=== PATIENT | male | born 1985 | race Caucasian/White ===

== ENCOUNTER 2019-01-20 18:42 | Inpatient (IN) | payer MEDICARE, MEDICAID ==
[~2019-01-20] VITALS: Ht 180.3 cm; Wt 94.0 kg
[~2019-01-20 18:42] MED LIST: CLOZ100 PO; QUET200T PO
[2019-01-20] MEDS ORDERED: ZOLPIDEM TARTRATE 10 MG TABLET PO PRN (19:00)
[2019-01-20 20:17] VITALS: BP 131/72
[2019-01-20] MEDS: HALOPERIDOL 5 MG TABLET PO PRN (21:11)
[2019-01-20] MEDS: LORazepam 2 MG TABLET PO PRN (21:11)
[2019-01-20] MEDS ORDERED: ONDANSETRON HCL 4 MG TABLET PO PRN (23:15)
[2019-01-20] MEDS ORDERED: CloNIDine HCL 0.1 MG TABLET PO PRN (23:15)
[2019-01-20] MEDS ORDERED: DOCUSATE SODIUM 100 MG CAPSULE PO PRN (23:15)
[2019-01-20] MEDS ORDERED: NICOTINE 14 MG/24 HOUR PATCH TD PRN (23:15)
[2019-01-20] MEDS ORDERED: MAG HYDROX/AL HYDROX/SIMETH ES 30 ML SUSPENSION UDCUP PO PRN (23:15)
[2019-01-20] MEDS ORDERED: GuaiFENesin/D-METHORPHAN [SUGAR-FREE] 200-20MG/10 ML SYRUP UDCUP PO PRN (23:15)
[2019-01-20] MEDS ORDERED: PETROLATUM,WHITE 28 GM JELLY TP PRN (23:15)
[2019-01-20] MEDS ORDERED: ALBUTEROL SULFATE HFA 90 MCG/PUFF 8 GM INHALER IH PRN (23:15)
[2019-01-20] MEDS ORDERED: IBUPROFEN 400 MG TABLET PO PRN (23:15)
[2019-01-20] MEDS ORDERED: MAGNESIUM HYDROXIDE SUSPENSION 30 ML UDCUP PO PRN (23:15)
[2019-01-20] MEDS ORDERED: LOPERAMIDE HCL 2 MG CAPSULE PO PRN (23:15)
[2019-01-21 04:14] VITALS: BP 109/62
[2019-01-21 07:58] LABS: BASOPHILS % (AUTO) 0.5 % (0.0-2.0); EOSINOPHILS % (AUTO) 2.3 % (1.0-6.0); HEMATOCRIT 34.5 % (41-53); HEMOGLOBIN 11.9 g/dL (13.5-17.5); LYMPHOCYTES # (AUTO) 2.4 K/uL (1.0-4.8); LYMPHOCYTES % (AUTO) 37.5 % (22.0-44.0); MEAN CORPUSCULAR HEMOGLOBIN 29.1 pg (26.0-34.0); MEAN CORPUSCULAR HGB CONC 34.6 G/dL (31.0-37.0); MEAN CORPUSCULAR VOLUME 84 fL (80-100); MONOCYTES # (AUTO) 0.5 K/uL (0.1-1.0); MONOCYTES % (AUTO) 7.7 % (2.0-9.0); NEUTROPHILS # (AUTO) 3.3 K/uL (1.8-7.7); PLATELET COUNT (AUTO) 269 K/uL (150-450); RED CELL DISTRIBUTION WIDTH 14.2 % (11.5-14.5)
[2019-01-21 08:05] VITALS: BP 105/61
[2019-01-21 08:41] LABS: ALANINE AMINOTRANSFERASE 129 U/L (12-78); ALBUMIN 3.1 g/dL (3.4-5.0); ALKALINE PHOSPHATASE 50 U/L (46-116); ANION GAP 7 mmol/L (8-16); ASPARTATE AMINOTRANSFERASE 287 U/L (15-37); BILIRUBIN,TOTAL 1.1 mg/dL (0.1-1.0); CALCIUM, TOTAL 8.8 mg/dL (8.8-10.5); CARBON DIOXIDE 27 mmol/L (22-29); CHLORIDE 106 mmol/L (98-107); CHOL/HDL RATIO 2.2 (4.2-7.3); CHOLESTEROL 127 mg/dL (131-200); FREE T4 (FREE THYROXINE) 0.92 ng/dL (0.76-1.46); GLOMERULAR FILTR. RATE CALC > 60 mL/min (>60); GLUCOSE,RANDOM 86 mg/dL (70-110); HDL CHOLESTEROL 58 mg/dL (40-60); LDL CHOL (CALC.) 60 mg/dL (0-130); POTASSIUM 3.8 mmol/L (3.5-5.1); SODIUM SERUM 140 mmol/L (136-145); THYROID STIMULATING HORMONE 2.84 uIU/mL (0.36-3.74); TOTAL PROTEIN, SERUM 5.9 g/dL (6.4-8.2); TRIGLYCERIDES 45 mg/dL (15-150); UREA NITROGEN, BLOOD 10 mg/dL (7-18)
[2019-01-21] MEDS: BACITRACIN 28.4 GM OINTMENT TP SCH ×2 (09:24→16:29)
[2019-01-21 16:17] VITALS: BP 107/79
[2019-01-21] MEDS: LORazepam 2 MG TABLET PO PRN (16:50)
[2019-01-21] MEDS: QUEtiapine FUMARATE 200 MG TABLET PO SCH (20:28)
[2019-01-22 06:28] VITALS: BP 110/66
[2019-01-22] MEDS: BACITRACIN 28.4 GM OINTMENT TP SCH ×2 (09:45→16:33)
[2019-01-22] MEDS: LORazepam 2 MG TABLET PO PRN (16:03)
[2019-01-22 16:19] VITALS: BP 119/65
[2019-01-22] MEDS: QUEtiapine FUMARATE 200 MG TABLET PO SCH (20:36)
[2019-01-23 00:15] VITALS: BP 98/55
[2019-01-23] MEDS: FERROUS SULFATE 325 MG EC TABLET PO SCH ×2 (06:37→16:38)
[2019-01-23 08:37] VITALS: BP 110/63
[2019-01-23] MEDS: BACITRACIN 28.4 GM OINTMENT TP SCH ×2 (09:55→16:38)
[2019-01-23] MEDS: LORazepam 2 MG TABLET PO PRN (14:23)
[2019-01-23] MEDS: HALOPERIDOL 5 MG TABLET PO PRN (14:23)
[2019-01-23 16:48] VITALS: BP 109/58
[2019-01-23] MEDS: QUEtiapine FUMARATE 200 MG TABLET PO SCH (20:55)
[2019-01-24 02:02] VITALS: BP 104/66
[2019-01-24] MEDS: FERROUS SULFATE 325 MG EC TABLET PO SCH ×2 (07:01→16:49)
[2019-01-24 08:39] VITALS: BP 105/62
[2019-01-24] MEDS: BACITRACIN 28.4 GM OINTMENT TP SCH ×2 (09:24→16:49)
[2019-01-24 09:28] LABS: % IRON SATURATION 15.1 % (30-44)
[2019-01-24] MEDS: LORazepam 2 MG TABLET PO PRN ×2 (13:40→19:02)
[2019-01-24 16:06] VITALS: BP 100/67
[2019-01-24 19:02] VITALS: BP 108/65
[2019-01-24] MEDS: QUEtiapine FUMARATE 200 MG TABLET PO SCH (20:39)
[2019-01-25 00:41] VITALS: BP 101/61
[2019-01-25] MEDS: FERROUS SULFATE 325 MG EC TABLET PO SCH ×2 (06:42→16:55)
[2019-01-25 08:22] LABS: ALANINE AMINOTRANSFERASE 75 U/L (12-78); ALBUMIN 3.6 g/dL (3.4-5.0); ALKALINE PHOSPHATASE 55 U/L (46-116); ANION GAP 9 mmol/L (8-16); ASPARTATE AMINOTRANSFERASE 31 U/L (15-37); BILIRUBIN,TOTAL 0.9 mg/dL (0.1-1.0); CALCIUM, TOTAL 9.2 mg/dL (8.8-10.5); CARBON DIOXIDE 27 mmol/L (22-29); CHLORIDE 103 mmol/L (98-107); CREATININE 0.83 mg/dL (0.60-1.30); GLOMERULAR FILTR. RATE CALC > 60 mL/min (>60); GLUCOSE,RANDOM 75 mg/dL (70-110); POTASSIUM 4.7 mmol/L (3.5-5.1); SODIUM SERUM 139 mmol/L (136-145); TOTAL PROTEIN, SERUM 6.5 g/dL (6.4-8.2); UREA NITROGEN, BLOOD 24 mg/dL (7-18)
[2019-01-25 09:00] VITALS: BP 111/61
[2019-01-25] MEDS: BACITRACIN 28.4 GM OINTMENT TP SCH ×2 (09:26→16:55)
[2019-01-25] MEDS: LORazepam 2 MG TABLET PO PRN (15:53)
[2019-01-25 16:01] VITALS: BP 116/68
[2019-01-25] MEDS: ACETAMINOPHEN 325 MG TABLET PO PRN (16:03)
[2019-01-25] MEDS: QUEtiapine FUMARATE 200 MG TABLET PO SCH (20:30)
[2019-01-26] MEDS: FERROUS SULFATE 325 MG EC TABLET PO SCH ×2 (06:56→16:48)
[2019-01-26 08:23] VITALS: BP 101/73
[2019-01-26] MEDS: BACITRACIN 28.4 GM OINTMENT TP SCH ×2 (08:34→16:36)
[2019-01-26] MEDS: LORazepam 2 MG TABLET PO PRN (12:00)
[2019-01-26 16:14] VITALS: BP 106/62
[2019-01-26] MEDS: QUEtiapine FUMARATE 200 MG TABLET PO SCH (20:34)
[2019-01-27 06:26] VITALS: BP 114/68
[2019-01-27] MEDS: FERROUS SULFATE 325 MG EC TABLET PO SCH ×3 (06:29→16:32)
[2019-01-27 08:23] VITALS: BP 94/59
[2019-01-27] MEDS: BACITRACIN 28.4 GM OINTMENT TP SCH ×2 (08:36→16:34)
[2019-01-27] MEDS: LORazepam 2 MG TABLET PO PRN ×2 (12:06→18:12)
[2019-01-27 13:56] VITALS: BP 109/59
[2019-01-27 16:09] VITALS: BP 115/63
[2019-01-27] MEDS: HALOPERIDOL 5 MG TABLET PO PRN (16:32)
[2019-01-27] MEDS: QUEtiapine FUMARATE 200 MG TABLET PO SCH (20:05)
[2019-01-28 05:38] VITALS: BP 100/60
[2019-01-28] MEDS: FERROUS SULFATE 325 MG EC TABLET PO SCH ×3 (06:05→16:36)
[2019-01-28 08:24] VITALS: BP 100/60
[2019-01-28] MEDS: BACITRACIN 28.4 GM OINTMENT TP SCH ×2 (09:37→16:36)
[2019-01-28] MEDS: LORazepam 2 MG TABLET PO PRN ×2 (10:14→17:29)
[2019-01-28 17:22] VITALS: BP 107/65
[2019-01-28] MEDS: QUEtiapine FUMARATE 200 MG TABLET PO SCH (20:37)
[2019-01-29 00:54] VITALS: BP 103/60
[2019-01-29] MEDS: FERROUS SULFATE 325 MG EC TABLET PO SCH ×3 (06:49→17:09)
[2019-01-29] MEDS: BACITRACIN 28.4 GM OINTMENT TP SCH ×2 (09:02→17:10)
[2019-01-29] MEDS: LORazepam 2 MG TABLET PO PRN ×2 (12:12→18:11)
[2019-01-29] MEDS: HALOPERIDOL 5 MG TABLET PO PRN (17:09)
[2019-01-29 18:00] VITALS: BP 107/63
[2019-01-29 19:37] VITALS: BP 102/65
[2019-01-29] MEDS: ACETAMINOPHEN 325 MG TABLET PO PRN (19:37)
[2019-01-29] MEDS: QUEtiapine FUMARATE 200 MG TABLET PO SCH (20:36)
[2019-01-30] VITALS: BP 105/62
[2019-01-30] MEDS: FERROUS SULFATE 325 MG EC TABLET PO SCH ×2 (07:05→12:18)
[2019-01-30 08:12] VITALS: BP 94/53
[2019-01-30] MEDS: BACITRACIN 28.4 GM OINTMENT TP SCH (08:37)
[2019-01-30] MEDS ORDERED: FERR-89 PO (08:43)
== END 2019-01-30 11:50 | disposition home or self-care (01) | DRG 885 ==
LOC: B2X 18:58
PROVIDERS: ADMIT Psychiatry & Neurology Child & Adolescent Psychiatry; ATTEND Psychiatry & Neurology Child & Adolescent Psychiatry
DX: F25.0 Schizoaffective disorder, bipolar type (principal); K76.0 Fatty (change of) liver, not elsewhere classified; F10.10 Alcohol abuse, uncomplicated; D64.9 Anemia, unspecified; B18.2 Chronic viral hepatitis C; F99 Mental disorder, not otherwise specified; Z59.0 Homelessness; Z81.8 Family history of other mental and behavioral disorders; Z79.899 Other long term (current) drug therapy; Z91.14 Patient's other noncompliance with medication regimen; Z91.5 Personal history of self-harm
CPT/HCPCS: 76700; 80074; 82728; 83036; 83540; 83550; 84439; 84443; 86592; 90686

== ENCOUNTER 2019-06-06 16:24 | Inpatient (IN) | payer MEDICARE, MEDICAID ==
[~2019-06-06] VITALS: Ht 180.3 cm; Wt 91.4 kg
[~2019-06-06 16:24] MED LIST changes: -CLOZ100 PO; +FERR-89 PO
[2019-06-06] MEDS ORDERED: QUET200T PO (16:32)
[2019-06-06 18:01] VITALS: BP 119/71
[2019-06-06] MEDS ORDERED: IBUPROFEN 400 MG TABLET PO PRN (18:15)
[2019-06-06] MEDS ORDERED: MAG HYDROX/AL HYDROX/SIMETH ES 30 ML SUSPENSION UDCUP PO PRN (18:15)
[2019-06-06] MEDS ORDERED: GuaiFENesin/D-METHORPHAN [SUGAR-FREE] 200-20MG/10 ML SYRUP UDCUP PO PRN (18:15)
[2019-06-06] MEDS ORDERED: LOPERAMIDE HCL 2 MG CAPSULE PO PRN (18:15)
[2019-06-06] MEDS ORDERED: NICOTINE 14 MG/24 HOUR PATCH TD PRN (18:15)
[2019-06-06] MEDS ORDERED: MAGNESIUM HYDROXIDE SUSPENSION 30 ML UDCUP PO PRN (18:15)
[2019-06-06] MEDS ORDERED: ONDANSETRON HCL 4 MG TABLET PO PRN (18:15)
[2019-06-06] MEDS ORDERED: PETROLATUM,WHITE 28 GM JELLY TP PRN (18:15)
[2019-06-06] MEDS ORDERED: CloNIDine HCL 0.1 MG TABLET PO PRN (18:15)
[2019-06-06] MEDS ORDERED: DOCUSATE SODIUM 100 MG CAPSULE PO PRN (18:15)
[2019-06-06] MEDS ORDERED: ALBUTEROL SULFATE HFA 90 MCG/PUFF 8 GM INHALER IH PRN (18:15)
[2019-06-06] MEDS: LORazepam 2 MG TABLET PO PRN (19:44)
[2019-06-06] MEDS: ACETAMINOPHEN 325 MG TABLET PO PRN (19:44)
[2019-06-06] MEDS: ZOLPIDEM TARTRATE 10 MG TABLET PO PRN (21:17)
[2019-06-06] MEDS: HALOPERIDOL 5 MG TABLET PO PRN (21:17)
[2019-06-07 00:29] VITALS: BP 120/81
[2019-06-07 01:23] VITALS: BP 131/82
[2019-06-07 08:25] LABS: BASOPHILS % (AUTO) 0.6 % (0.0-2.0); EOSINOPHILS % (AUTO) 1.5 % (1.0-6.0); HEMATOCRIT 42.8 % (41-53); HEMOGLOBIN 14.6 g/dL (13.5-17.5); LYMPHOCYTES # (AUTO) 3.3 K/uL (1.0-4.8); LYMPHOCYTES % (AUTO) 43.7 % (22.0-44.0); MEAN CORPUSCULAR HEMOGLOBIN 29.3 pg (26.0-34.0); MEAN CORPUSCULAR HGB CONC 34.1 G/dL (31.0-37.0); MEAN CORPUSCULAR VOLUME 86 fL (80-100); MONOCYTES # (AUTO) 0.6 K/uL (0.1-1.0); MONOCYTES % (AUTO) 7.4 % (2.0-9.0); NEUTROPHILS # (AUTO) 3.5 K/uL (1.8-7.7); NEUTROPHILS % (AUTO) 46.8 % (40.0-70.0); PLATELET COUNT (AUTO) 350 K/uL (150-450)
[2019-06-07 08:47] LABS: HEMOGLOBIN A1C 4.8 % (4.5-6.2)
[2019-06-07 08:54] VITALS: BP 106/67
[2019-06-07 08:59] LABS: ALANINE AMINOTRANSFERASE 17 U/L (12-78); ALBUMIN 4.1 g/dL (3.4-5.0); ALKALINE PHOSPHATASE 67 U/L (46-116); ANION GAP 7 mmol/L (8-16); ASPARTATE AMINOTRANSFERASE 14 U/L (15-37); BILIRUBIN,TOTAL 1.7 mg/dL (0.1-1.0); CARBON DIOXIDE 28 mmol/L (22-29); CHLORIDE 106 mmol/L (98-107); CHOL/HDL RATIO 2.9 (4.2-7.3); CHOLESTEROL 117 mg/dL (131-200); CREATININE 0.83 mg/dL (0.60-1.30); FREE T4 (FREE THYROXINE) 1.09 ng/dL (0.76-1.46); GLOMERULAR FILTR. RATE CALC > 60 mL/min (>60); GLUCOSE,RANDOM 73 mg/dL (70-110); HDL CHOLESTEROL 40 mg/dL (40-60); LDL CHOL (CALC.) 65 mg/dL (0-130); SODIUM SERUM 141 mmol/L (136-145); THYROID STIMULATING HORMONE 4.05 uIU/mL (0.36-3.74); TOTAL PROTEIN, SERUM 6.6 g/dL (6.4-8.2); TRIGLYCERIDES 58 mg/dL (15-150); UREA NITROGEN, BLOOD 14 mg/dL (7-18)
[2019-06-07 16:13] VITALS: BP 106/60
[2019-06-07] MEDS: QUEtiapine FUMARATE 200 MG TABLET PO SCH (20:29)
[2019-06-08 00:33] VITALS: BP 110/68
[2019-06-08 08:24] VITALS: BP 108/77
[2019-06-08 16:13] VITALS: BP 109/66
[2019-06-08] MEDS: LORazepam 2 MG TABLET PO PRN (17:01)
[2019-06-08] MEDS: ACETAMINOPHEN 325 MG TABLET PO PRN (17:02)
[2019-06-08] MEDS: QUEtiapine FUMARATE 200 MG TABLET PO SCH (20:31)
[2019-06-09 06:02] VITALS: BP 100/62
[2019-06-09 09:02] VITALS: BP 99/62
[2019-06-09 16:16] VITALS: BP 117/63
[2019-06-09] MEDS: LORazepam 2 MG TABLET PO PRN (17:18)
[2019-06-09] MEDS: ACETAMINOPHEN 325 MG TABLET PO PRN (17:18)
[2019-06-09] MEDS: QUEtiapine FUMARATE 200 MG TABLET PO SCH (20:33)
[2019-06-10 05:23] VITALS: BP 102/60
[2019-06-10 08:45] VITALS: BP 108/60
[2019-06-10] MEDS: LORazepam 2 MG TABLET PO PRN (16:19)
[2019-06-10 16:25] VITALS: BP 112/64
[2019-06-10] MEDS: QUEtiapine FUMARATE 200 MG TABLET PO SCH (21:00)
[2019-06-11 01:04] VITALS: BP 119/77
[2019-06-11 08:11] VITALS: BP 122/75
[2019-06-11 16:36] VITALS: BP 112/74
[2019-06-11] MEDS: ACETAMINOPHEN 325 MG TABLET PO PRN (16:36)
[2019-06-11] MEDS: LORazepam 2 MG TABLET PO PRN ×2 (16:39→23:36)
[2019-06-11] MEDS: HALOPERIDOL 5 MG TABLET PO PRN (19:41)
[2019-06-11] MEDS: QUEtiapine FUMARATE 200 MG TABLET PO SCH (20:47)
[2019-06-11] MEDS: ZOLPIDEM TARTRATE 10 MG TABLET PO PRN (21:17)
[2019-06-12 00:02] VITALS: BP 116/83
[2019-06-12 08:24] VITALS: BP 114/73
[2019-06-12 16:12] VITALS: BP 116/78
[2019-06-12] MEDS: RisperiDONE 3 MG TABLET PO SCH (16:45)
[2019-06-12] MEDS: LORazepam 2 MG TABLET PO PRN (16:53)
[2019-06-12] MEDS: ACETAMINOPHEN 325 MG TABLET PO PRN (16:53)
[2019-06-13 01:28] VITALS: BP 106/63
[2019-06-13 08:36] VITALS: BP 109/68
[2019-06-13] MEDS: RisperiDONE 3 MG TABLET PO SCH ×2 (09:00→16:09)
[2019-06-13] MEDS: LORazepam 2 MG TABLET PO PRN ×2 (11:56→17:02)
[2019-06-13 16:05] VITALS: BP 116/68
[2019-06-13] MEDS: HALOPERIDOL 5 MG TABLET PO PRN (20:08)
[2019-06-14 00:01] VITALS: BP 107/68
[2019-06-14] MEDS: LORazepam 2 MG TABLET PO PRN (00:10)
[2019-06-14] MEDS: ZOLPIDEM TARTRATE 10 MG TABLET PO PRN (00:10)
[2019-06-14] MEDS ORDERED: RISP3 PO (08:02)
[2019-06-14 08:16] VITALS: BP 112/68
[2019-06-14] MEDS: RisperiDONE 3 MG TABLET PO SCH (09:52)
== END 2019-06-14 10:55 | disposition home or self-care (01) | DRG 885 ==
LOC: B2X 16:51
PROVIDERS: ADMIT Psychiatry & Neurology Psychiatry; ATTEND Psychiatry & Neurology Psychiatry
DX: F25.9 Schizoaffective disorder, unspecified (principal); B18.2 Chronic viral hepatitis C; E03.9 Hypothyroidism, unspecified; F32.9 Major depressive disorder, single episode, unspecified; F19.10 Other psychoactive substance abuse, uncomplicated; F10.10 Alcohol abuse, uncomplicated; Z71.41 Alcohol abuse counseling and surveillance of alcoholic; Z71.51 Drug abuse counseling and surveillance of drug abuser; Z88.0 Allergy status to penicillin; Z91.09 Other allergy status, other than to drugs and biological substances
CPT/HCPCS: 83036; 84439; 84443

== ENCOUNTER 2019-06-15 21:44 | Inpatient (IN) | payer MEDICARE, MEDICAID ==
[~2019-06-15] VITALS: Ht 180.3 cm; Wt 104.3 kg
[~2019-06-15 21:44] MED LIST changes: -FERR-89 PO; -QUET200T PO; +RISP3 PO
[2019-06-15 22:37] VITALS: BP 117/72
[2019-06-16 00:05] VITALS: BP 130/81
[2019-06-16] MEDS: HALOPERIDOL 5 MG TABLET PO PRN (00:34)
[2019-06-16] MEDS: ZOLPIDEM TARTRATE 10 MG TABLET PO PRN (00:34)
[2019-06-16 08:20] VITALS: BP 117/70
[2019-06-16 08:44] LABS: BASOPHILS % (AUTO) 0.7 % (0.0-2.0); EOSINOPHILS % (AUTO) 1.8 % (1.0-6.0); HEMATOCRIT 42.1 % (41-53); HEMOGLOBIN 14.3 g/dL (13.5-17.5); LYMPHOCYTES # (AUTO) 3.2 K/uL (1.0-4.8); LYMPHOCYTES % (AUTO) 47.8 % (22.0-44.0); MEAN CORPUSCULAR HGB CONC 34.1 G/dL (31.0-37.0); MEAN CORPUSCULAR VOLUME 85 fL (80-100); MONOCYTES # (AUTO) 0.4 K/uL (0.1-1.0); NEUTROPHILS # (AUTO) 2.9 K/uL (1.8-7.7); NEUTROPHILS % (AUTO) 43.7 % (40.0-70.0); PLATELET COUNT (AUTO) 284 K/uL (150-450); RED BLOOD CELL COUNT(AUTO) 4.95 MIL/uL (4.50-5.90); RED CELL DISTRIBUTION WIDTH 13.3 % (11.5-14.5)
[2019-06-16 09:25] LABS: ALANINE AMINOTRANSFERASE 22 U/L (12-78); ALKALINE PHOSPHATASE 61 U/L (46-116); ANION GAP 10 mmol/L (8-16); ASPARTATE AMINOTRANSFERASE 18 U/L (15-37); BILIRUBIN,TOTAL 1.4 mg/dL (0.1-1.0); CALCIUM, TOTAL 9.2 mg/dL (8.8-10.5); CARBON DIOXIDE 28 mmol/L (22-29); CHLORIDE 103 mmol/L (98-107); CHOL/HDL RATIO 2.9 (4.2-7.3); CHOLESTEROL 153 mg/dL (131-200); CREATININE 0.85 mg/dL (0.60-1.30); GLOMERULAR FILTR. RATE CALC > 60 mL/min (>60); GLUCOSE,RANDOM 96 mg/dL (70-110); HDL CHOLESTEROL 52 mg/dL (40-60); LDL CHOL (CALC.) 84 mg/dL (0-130); POTASSIUM 3.9 mmol/L (3.5-5.1); SODIUM SERUM 141 mmol/L (136-145); THYROID STIMULATING HORMONE 2.33 uIU/mL (0.36-3.74); TOTAL PROTEIN, SERUM 6.5 g/dL (6.4-8.2); TRIGLYCERIDES 83 mg/dL (15-150); UREA NITROGEN, BLOOD 22 mg/dL (7-18)
[2019-06-16] MEDS ORDERED: LOPERAMIDE HCL 2 MG CAPSULE PO PRN (10:30)
[2019-06-16] MEDS ORDERED: PETROLATUM,WHITE 28 GM JELLY TP PRN (10:30)
[2019-06-16] MEDS ORDERED: IBUPROFEN 400 MG TABLET PO PRN (10:30)
[2019-06-16] MEDS ORDERED: GuaiFENesin/D-METHORPHAN [SUGAR-FREE] 200-20MG/10 ML SYRUP UDCUP PO PRN (10:30)
[2019-06-16] MEDS ORDERED: CloNIDine HCL 0.1 MG TABLET PO PRN (10:30)
[2019-06-16] MEDS ORDERED: ACETAMINOPHEN 325 MG TABLET PO PRN (10:30)
[2019-06-16] MEDS ORDERED: NICOTINE 14 MG/24 HOUR PATCH TD PRN (10:30)
[2019-06-16] MEDS ORDERED: MAG HYDROX/AL HYDROX/SIMETH ES 30 ML SUSPENSION UDCUP PO PRN (10:30)
[2019-06-16] MEDS ORDERED: DOCUSATE SODIUM 100 MG CAPSULE PO PRN (10:30)
[2019-06-16] MEDS ORDERED: ONDANSETRON HCL 4 MG TABLET PO PRN (10:30)
[2019-06-16] MEDS ORDERED: ALBUTEROL SULFATE HFA 90 MCG/PUFF 8 GM INHALER IH PRN (10:30)
[2019-06-16 16:09] VITALS: BP 108/68
[2019-06-16] MEDS: RisperiDONE 3 MG TABLET PO SCH (17:02)
[2019-06-16] MEDS: LORazepam 2 MG TABLET PO PRN (20:00)
[2019-06-16] MEDS: QUEtiapine FUMARATE 200 MG TABLET PO SCH (20:37)
[2019-06-17 07:26] VITALS: BP 107/70
[2019-06-17 07:36] LABS: CHOL/HDL RATIO 3.7 (4.2-7.3)
[2019-06-17 08:33] VITALS: BP 118/68
[2019-06-17] MEDS: RisperiDONE 3 MG TABLET PO SCH ×2 (08:45→16:13)
[2019-06-17] MEDS: LORazepam 2 MG TABLET PO PRN (16:13)
[2019-06-17 16:14] VITALS: BP 107/65
[2019-06-17] MEDS: QUEtiapine FUMARATE 200 MG TABLET PO SCH (20:24)
[2019-06-18 01:04] VITALS: BP 108/69
[2019-06-18] MEDS: ZOLPIDEM TARTRATE 10 MG TABLET PO PRN (01:04)
[2019-06-18] MEDS: LORazepam 2 MG TABLET PO PRN ×2 (01:04→16:15)
[2019-06-18 08:22] LABS: AMPHET/METH SCREEN,URINE NEGATIVE (NEGATIVE); BARBITURATE SCREEN, URINE NEGATIVE (NEGATIVE); BENZODIAZEPINES SCREEN,URINE NEGATIVE (NEGATIVE); CANNABINOID SCREEN,URINE NEGATIVE (NEGATIVE); COCAINE SCREEN,URINE NEGATIVE (NEGATIVE); METHADONE SCREEN, URINE NEGATIVE (NEGATIVE); OPIATE SCREEN,URINE NEGATIVE (NEGATIVE)
[2019-06-18 08:31] LABS: PHENCYCLIDINE SCREEN,URINE NEGATIVE (NEGATIVE)
[2019-06-18 09:10] LABS: APPEARANCE,URINE CLEAR (CLEAR); BILIRUBIN,URINE NEGATIVE (NEGATIVE); GLUCOSE, URINE (UA) NEGATIVE (NEGATIVE); KETONES,URINE NEGATIVE (NEGATIVE); LEUKOCYTE ESTERASE ,URINE NEGATIVE (NEGATIVE); NITRATE,URINE NEGATIVE (NEGATIVE); OCCULT BLOOD,URINE NEGATIVE (NEGATIVE); PH,URINE 6.5 (5.0-8.0); PROTEIN,URINE NEGATIVE (NEGATIVE); UROBILINOGEN,URINE 0.2 mg/dL (<=1.0)
[2019-06-18] MEDS: RisperiDONE 3 MG TABLET PO SCH ×2 (09:14→17:03)
[2019-06-18 10:05] VITALS: BP 110/63
[2019-06-18 16:14] VITALS: BP 114/64
[2019-06-18] MEDS: QUEtiapine FUMARATE 200 MG TABLET PO SCH (20:33)
[2019-06-19 03:15] VITALS: BP 113/60
[2019-06-19 08:10] VITALS: BP 109/65
[2019-06-19] MEDS: RisperiDONE 3 MG TABLET PO SCH ×3 (08:20→17:02)
[2019-06-19] MEDS: LORazepam 2 MG TABLET PO PRN (15:59)
[2019-06-19 16:07] VITALS: BP 105/76
[2019-06-19] MEDS: MAGNESIUM HYDROXIDE SUSPENSION 30 ML UDCUP PO PRN (17:19)
[2019-06-19] MEDS: QUEtiapine FUMARATE 200 MG TABLET PO SCH (20:48)
[2019-06-19] MEDS: ZOLPIDEM TARTRATE 10 MG TABLET PO PRN (21:16)
[2019-06-20 00:41] VITALS: BP 110/68
[2019-06-20 08:26] VITALS: BP 106/67
[2019-06-20] MEDS: RisperiDONE 3 MG TABLET PO SCH ×2 (08:52→16:40)
[2019-06-20 16:22] VITALS: BP 112/74
[2019-06-20] MEDS: LORazepam 2 MG TABLET PO PRN (16:28)
[2019-06-20] MEDS: MAGNESIUM HYDROXIDE SUSPENSION 30 ML UDCUP PO PRN (16:28)
[2019-06-20] MEDS: QUEtiapine FUMARATE 200 MG TABLET PO SCH (20:31)
[2019-06-20] MEDS: ZOLPIDEM TARTRATE 10 MG TABLET PO PRN (21:22)
[2019-06-21 00:07] VITALS: BP 111/68
[2019-06-21] MEDS: HALOPERIDOL 5 MG TABLET PO PRN (00:16)
[2019-06-21] MEDS: LORazepam 2 MG TABLET PO PRN ×2 (00:16→14:43)
[2019-06-21 08:25] VITALS: BP 116/76
[2019-06-21] MEDS: RisperiDONE 3 MG TABLET PO SCH (08:44)
[2019-06-21 16:11] VITALS: BP 104/74
[2019-06-21] MEDS: RisperiDONE 4 MG TABLET PO SCH (20:30)
[2019-06-21] MEDS: QUEtiapine FUMARATE 200 MG TABLET PO SCH (20:31)
[2019-06-21] MEDS: ZOLPIDEM TARTRATE 10 MG TABLET PO PRN (21:15)
[2019-06-22 06:34] VITALS: BP 110/68
[2019-06-22 08:10] VITALS: BP 109/65
[2019-06-22] MEDS: LORazepam 2 MG TABLET PO PRN (14:54)
[2019-06-22 16:15] VITALS: BP 112/67
[2019-06-22] MEDS: QUEtiapine FUMARATE 200 MG TABLET PO SCH (20:12)
[2019-06-22] MEDS: RisperiDONE 4 MG TABLET PO SCH (20:12)
[2019-06-23 01:08] VITALS: BP 106/74
[2019-06-23 08:04] VITALS: BP 107/77
[2019-06-23] MEDS: LORazepam 2 MG TABLET PO PRN ×2 (11:59→16:17)
[2019-06-23 16:13] VITALS: BP 118/72
[2019-06-23] MEDS: RisperiDONE 4 MG TABLET PO SCH (20:28)
[2019-06-23] MEDS: QUEtiapine FUMARATE 200 MG TABLET PO SCH (20:29)
[2019-06-24 01:00] VITALS: BP 117/65
[2019-06-24] MEDS: ZOLPIDEM TARTRATE 10 MG TABLET PO PRN ×2 (01:11→21:17)
[2019-06-24 08:05] VITALS: BP 113/72
[2019-06-24] MEDS: LORazepam 2 MG TABLET PO PRN ×2 (13:24→18:23)
[2019-06-24 16:08] VITALS: BP 114/72
[2019-06-24] MEDS: MAGNESIUM HYDROXIDE SUSPENSION 30 ML UDCUP PO PRN (16:18)
[2019-06-24] MEDS: QUEtiapine FUMARATE 200 MG TABLET PO SCH (20:28)
[2019-06-24] MEDS: RisperiDONE 4 MG TABLET PO SCH (20:28)
[2019-06-25 01:43] VITALS: BP 123/80
[2019-06-25 08:20] VITALS: BP 117/60
[2019-06-25] MEDS ORDERED: RISP4 PO (11:16)
[2019-06-25] MEDS ORDERED: QUET200T PO (11:16)
== END 2019-06-25 13:20 | disposition home or self-care (01) | DRG 885 ==
LOC: B2X 23:26
PROVIDERS: ADMIT Psychiatry & Neurology Psychiatry; ATTEND Psychiatry & Neurology Psychiatry
DX: F25.9 Schizoaffective disorder, unspecified (principal); B18.2 Chronic viral hepatitis C; R45.851 Suicidal ideations; F10.10 Alcohol abuse, uncomplicated; G44.209 Tension-type headache, unspecified, not intractable; F19.10 Other psychoactive substance abuse, uncomplicated; Z59.0 Homelessness; Z71.41 Alcohol abuse counseling and surveillance of alcoholic; Z71.51 Drug abuse counseling and surveillance of drug abuser
CPT/HCPCS: 80307; 84436; 84443; 87081

== ENCOUNTER 2019-09-10 11:50 | Inpatient (IN) | payer MEDICARE, MEDICAID ==
[~2019-09-10] VITALS: Ht 180.3 cm; Wt 97.7 kg
[~2019-09-10 11:50] MED LIST changes: +QUET200T PO; -RISP3 PO; +RISP4 PO
[2019-09-10] MEDS ORDERED: LORazepam 2 MG TABLET PO PRN (12:00)
[2019-09-10 12:15] VITALS: BP 118/65
[2019-09-10 12:45] VITALS: BP 120/81
[2019-09-10] MEDS ORDERED: INFLUENZA VIRUS VACCINE QVS 2019-20 (3YR+)/PF 60 MCG/0.5 ML SYRINGE IM ONE (12:45)
[2019-09-10] MEDS ORDERED: TUBERCULIN, PURIFIED PROTEIN DERIVATIVE 5 TU/0.1 ML SYRINGE ID ONE (14:15)
[2019-09-10] MEDS ORDERED: LOPERAMIDE HCL 2 MG CAPSULE PO PRN (14:15)
[2019-09-10] MEDS ORDERED: MAG HYDROX/AL HYDROX/SIMETH ES 30 ML SUSPENSION UDCUP PO PRN (14:15)
[2019-09-10] MEDS ORDERED: ACETAMINOPHEN 325 MG TABLET PO PRN (14:15)
[2019-09-10] MEDS ORDERED: MAGNESIUM HYDROXIDE SUSPENSION 30 ML UDCUP PO PRN (14:15)
[2019-09-10] MEDS ORDERED: PROMETHAZINE HCL 25 MG TABLET PO PRN (14:15)
[2019-09-10] MEDS ORDERED: GuaiFENesin/D-METHORPHAN [SUGAR-FREE] 200-20MG/10 ML SYRUP UDCUP PO PRN (14:15)
[2019-09-10 16:07] VITALS: BP 110/60
[2019-09-10] MEDS: THIAMINE HCL 100 MG TABLET PO SCH (16:54)
[2019-09-10] MEDS: OLANZapine 5 MG RAPDIS TABLET PO PRN (17:44)
[2019-09-10] MEDS: HydrOXYzine PAMOATE 50 MG CAPSULE PO PRN (17:44)
[2019-09-10] MEDS: ZOLPIDEM TARTRATE 10 MG TABLET PO PRN (20:55)
[2019-09-10] MEDS ORDERED: RisperiDONE 3 MG TABLET PO SCH (21:00)
[2019-09-11 00:02] VITALS: BP 124/88
[2019-09-11 08:09] VITALS: BP 116/68
[2019-09-11 08:34] LABS: BASOPHILS % (AUTO) 0.7 % (0.0-2.0); HEMATOCRIT 44.8 % (41-53); HEMOGLOBIN 14.9 g/dL (13.5-17.5); LYMPHOCYTES # (AUTO) 2.6 K/uL (1.0-4.8); MEAN CORPUSCULAR HEMOGLOBIN 28.5 pg (26.0-34.0); MEAN CORPUSCULAR HGB CONC 33.3 G/dL (31.0-37.0); MEAN CORPUSCULAR VOLUME 86 fL (80-100); MONOCYTES # (AUTO) 0.5 K/uL (0.1-1.0); MONOCYTES % (AUTO) 6.3 % (2.0-9.0); NEUTROPHILS # (AUTO) 4.1 K/uL (1.8-7.7); PLATELET COUNT (AUTO) 329 K/uL (150-450); RED BLOOD CELL COUNT(AUTO) 5.22 MIL/uL (4.50-5.90); RED CELL DISTRIBUTION WIDTH 13.9 % (11.5-14.5)
[2019-09-11 08:48] LABS: HEMOGLOBIN A1C 4.5 % (4.5-6.2)
[2019-09-11 08:59] LABS: ALANINE AMINOTRANSFERASE 28 U/L (12-78); ALBUMIN 3.7 g/dL (3.4-5.0); ALKALINE PHOSPHATASE 62 U/L (46-116); ANION GAP 7 mmol/L (8-16); ASPARTATE AMINOTRANSFERASE 12 U/L (15-37); BILIRUBIN,TOTAL 0.7 mg/dL (0.1-1.0); CARBON DIOXIDE 29 mmol/L (22-29); CHLORIDE 105 mmol/L (98-107); CHOL/HDL RATIO 2.6 (4.2-7.3); CHOLESTEROL 153 mg/dL (131-200); CREATININE 0.83 mg/dL (0.60-1.30); FREE T4 (FREE THYROXINE) 0.97 ng/dL (0.76-1.46); GLOMERULAR FILTR. RATE CALC > 60 mL/min (>60); GLUCOSE,RANDOM 76 mg/dL (70-110); HDL CHOLESTEROL 58 mg/dL (40-60); LDL CHOL (CALC.) 83 mg/dL (0-130); POTASSIUM 4.6 mmol/L (3.5-5.1); SODIUM SERUM 141 mmol/L (136-145); TOTAL PROTEIN, SERUM 6.9 g/dL (6.4-8.2); TRIGLYCERIDES 59 mg/dL (15-150); UREA NITROGEN, BLOOD 12 mg/dL (7-18)
[2019-09-11] MEDS ORDERED: CloZAPine 25 MG TABLET PO SCH (09:00)
[2019-09-11] MEDS: FOLIC ACID 1 MG TABLET PO SCH (09:40)
[2019-09-11] MEDS: THIAMINE HCL 100 MG TABLET PO SCH ×2 (09:40→16:30)
[2019-09-11] MEDS: MULTIVITAMINS WITH MINERALS, THERAPEUTIC TABLET PO SCH (09:40)
[2019-09-11] MEDS ORDERED: OLANZapine 5 MG RAPDIS TABLET PO ONE (16:00)
[2019-09-11 16:21] VITALS: BP 114/72
[2019-09-12 00:21] VITALS: BP 112/71
[2019-09-12 08:18] VITALS: BP 120/69
[2019-09-12] MEDS ORDERED: CloZAPine 25 MG TABLET PO SCH ×2 (09:00→21:00)
[2019-09-12] MEDS: MULTIVITAMINS WITH MINERALS, THERAPEUTIC TABLET PO SCH (09:07)
[2019-09-12] MEDS: FOLIC ACID 1 MG TABLET PO SCH (09:07)
[2019-09-12] MEDS: THIAMINE HCL 100 MG TABLET PO SCH ×2 (09:07→16:28)
[2019-09-12] MEDS: OLANZapine 5 MG RAPDIS TABLET PO PRN ×2 (09:11→16:53)
[2019-09-12 09:20] LABS: ALANINE AMINOTRANSFERASE 28 U/L (12-78); ALBUMIN 3.6 g/dL (3.4-5.0); ALKALINE PHOSPHATASE 63 U/L (46-116); ANION GAP 4 mmol/L (8-16); ASPARTATE AMINOTRANSFERASE 13 U/L (15-37); BILIRUBIN,TOTAL 0.7 mg/dL (0.1-1.0); CALCIUM, TOTAL 8.9 mg/dL (8.8-10.5); CARBON DIOXIDE 32 mmol/L (22-29); CHLORIDE 103 mmol/L (98-107); CREATININE 0.82 mg/dL (0.60-1.30); GLOMERULAR FILTR. RATE CALC > 60 mL/min (>60); GLUCOSE,RANDOM 86 mg/dL (70-110); POTASSIUM 4.2 mmol/L (3.5-5.1); SODIUM SERUM 139 mmol/L (136-145); TOTAL PROTEIN, SERUM 6.8 g/dL (6.4-8.2); UREA NITROGEN, BLOOD 13 mg/dL (7-18)
[2019-09-12] MEDS ORDERED: IBUPROFEN 600 MG TABLET PO PRN (13:45)
[2019-09-12] MEDS ORDERED: ACETAMINOPHEN 325 MG TABLET PO PRN (13:45)
[2019-09-12 16:11] VITALS: BP 107/64
[2019-09-13 01:30] VITALS: BP 105/62
[2019-09-13 08:16] VITALS: BP 106/61
[2019-09-13] MEDS: MULTIVITAMINS WITH MINERALS, THERAPEUTIC TABLET PO SCH (08:47)
[2019-09-13] MEDS: THIAMINE HCL 100 MG TABLET PO SCH ×2 (08:48→16:39)
[2019-09-13] MEDS: FOLIC ACID 1 MG TABLET PO SCH (08:48)
[2019-09-13] MEDS ORDERED: CloZAPine 25 MG TABLET PO SCH ×2 (09:00→21:00)
[2019-09-13] MEDS: OLANZapine 5 MG RAPDIS TABLET PO PRN (15:31)
[2019-09-13 16:06] VITALS: BP 122/71
[2019-09-13] MEDS: HydrOXYzine PAMOATE 50 MG CAPSULE PO PRN (16:39)
[2019-09-13] MEDS: DOCUSATE SODIUM 100 MG CAPSULE PO SCH (16:39)
[2019-09-14 02:45] VITALS: BP 111/60
[2019-09-14 08:18] VITALS: BP 108/70
[2019-09-14] MEDS: CloZAPine 25 MG TABLET PO SCH ×2 (09:31→20:40)
[2019-09-14] MEDS: MULTIVITAMINS WITH MINERALS, THERAPEUTIC TABLET PO SCH (09:32)
[2019-09-14] MEDS: DOCUSATE SODIUM 100 MG CAPSULE PO SCH ×3 (09:32→16:22)
[2019-09-14] MEDS: FOLIC ACID 1 MG TABLET PO SCH (09:32)
[2019-09-14] MEDS: THIAMINE HCL 100 MG TABLET PO SCH ×2 (09:33→16:22)
[2019-09-14 16:05] VITALS: BP 114/60
[2019-09-14] MEDS: OLANZapine 5 MG RAPDIS TABLET PO PRN (17:42)
[2019-09-15 00:23] VITALS: BP 104/62
[2019-09-15 08:25] VITALS: BP 107/60
[2019-09-15] MEDS: FOLIC ACID 1 MG TABLET PO SCH (08:30)
[2019-09-15] MEDS: DOCUSATE SODIUM 100 MG CAPSULE PO SCH ×3 (08:30→16:34)
[2019-09-15] MEDS: MULTIVITAMINS WITH MINERALS, THERAPEUTIC TABLET PO SCH (08:30)
[2019-09-15] MEDS: CloZAPine 25 MG TABLET PO SCH ×2 (08:30→20:26)
[2019-09-15] MEDS: THIAMINE HCL 100 MG TABLET PO SCH ×2 (08:38→16:34)
[2019-09-15 16:27] VITALS: BP 109/69
[2019-09-15] MEDS: GABAPENTIN 300 MG CAPSULE PO PRN (16:34)
[2019-09-15] MEDS: OLANZapine 5 MG RAPDIS TABLET PO PRN (16:34)
[2019-09-16 04:52] VITALS: BP 125/73
[2019-09-16 08:14] VITALS: BP_SYST 103; BP_SYST 116; BP_DIAS 60; BP_DIAS 79
[2019-09-16] MEDS: FOLIC ACID 1 MG TABLET PO SCH (08:33)
[2019-09-16] MEDS: THIAMINE HCL 100 MG TABLET PO SCH ×2 (08:33→16:03)
[2019-09-16] MEDS: DOCUSATE SODIUM 100 MG CAPSULE PO SCH ×3 (08:33→16:03)
[2019-09-16] MEDS: MULTIVITAMINS WITH MINERALS, THERAPEUTIC TABLET PO SCH (08:40)
[2019-09-16] MEDS ORDERED: CloZAPine 25 MG TABLET PO SCH (09:00)
[2019-09-16] MEDS: GABAPENTIN 300 MG CAPSULE PO PRN (13:58)
[2019-09-16] MEDS: OLANZapine 5 MG RAPDIS TABLET PO PRN (16:03)
[2019-09-16 16:14] VITALS: BP 127/81
[2019-09-16] MEDS ORDERED: CloZAPine 100 MG TABLET PO SCH (21:00)
[2019-09-17 00:16] VITALS: BP 105/61
[2019-09-17 08:22] VITALS: BP 113/75
[2019-09-17] MEDS: THIAMINE HCL 100 MG TABLET PO SCH ×2 (08:41→16:35)
[2019-09-17] MEDS: MULTIVITAMINS WITH MINERALS, THERAPEUTIC TABLET PO SCH (08:41)
[2019-09-17] MEDS: DOCUSATE SODIUM 100 MG CAPSULE PO SCH ×3 (08:41→16:35)
[2019-09-17] MEDS: FOLIC ACID 1 MG TABLET PO SCH (08:41)
[2019-09-17] MEDS ORDERED: CloZAPine 25 MG TABLET PO SCH (09:00)
[2019-09-17] MEDS: GABAPENTIN 300 MG CAPSULE PO PRN (10:40)
[2019-09-17] MEDS: OLANZapine 5 MG RAPDIS TABLET PO PRN (16:04)
[2019-09-17 16:25] VITALS: BP 109/68
[2019-09-17] MEDS: ZOLPIDEM TARTRATE 10 MG TABLET PO PRN (20:55)
[2019-09-17] MEDS ORDERED: CloZAPine 100 MG TABLET PO SCH (21:00)
[2019-09-18 05:50] VITALS: BP 114/77
[2019-09-18 08:12] VITALS: BP 115/61
[2019-09-18 08:15] LABS: BASOPHILS % (AUTO) 0.8 % (0.0-2.0); EOSINOPHILS % (AUTO) 2.1 % (1.0-6.0); HEMATOCRIT 40.2 % (41-53); HEMOGLOBIN 13.9 g/dL (13.5-17.5); LYMPHOCYTES # (AUTO) 2.4 K/uL (1.0-4.8); LYMPHOCYTES % (AUTO) 34.6 % (22.0-44.0); MEAN CORPUSCULAR HEMOGLOBIN 28.8 pg (26.0-34.0); MEAN CORPUSCULAR HGB CONC 34.5 G/dL (31.0-37.0); MEAN CORPUSCULAR VOLUME 83 fL (80-100); MONOCYTES # (AUTO) 0.5 K/uL (0.1-1.0); MONOCYTES % (AUTO) 6.6 % (2.0-9.0); NEUTROPHILS # (AUTO) 3.9 K/uL (1.8-7.7); NEUTROPHILS % (AUTO) 55.9 % (40.0-70.0); PLATELET COUNT (AUTO) 335 K/uL (150-450); RED BLOOD CELL COUNT(AUTO) 4.82 MIL/uL (4.50-5.90); RED CELL DISTRIBUTION WIDTH 13.2 % (11.5-14.5)
[2019-09-18] MEDS ORDERED: CloZAPine 25 MG TABLET PO SCH (09:00)
[2019-09-18] MEDS: FOLIC ACID 1 MG TABLET PO SCH (09:44)
[2019-09-18] MEDS: MULTIVITAMINS WITH MINERALS, THERAPEUTIC TABLET PO SCH (09:44)
[2019-09-18] MEDS: DOCUSATE SODIUM 100 MG CAPSULE PO SCH ×3 (09:44→16:31)
[2019-09-18] MEDS: THIAMINE HCL 100 MG TABLET PO SCH ×2 (09:44→16:31)
[2019-09-18] MEDS: GABAPENTIN 300 MG CAPSULE PO PRN (15:50)
[2019-09-18 16:14] VITALS: BP 125/83
[2019-09-18] MEDS: OLANZapine 5 MG RAPDIS TABLET PO PRN (17:35)
[2019-09-18] MEDS ORDERED: CloZAPine 100 MG TABLET PO SCH (21:00)
[2019-09-19 00:27] VITALS: BP 111/75
[2019-09-19 08:12] VITALS: BP 114/62
[2019-09-19] MEDS: CloZAPine 100 MG TABLET PO SCH ×2 (09:02→20:30)
[2019-09-19] MEDS: THIAMINE HCL 100 MG TABLET PO SCH ×2 (09:02→16:31)
[2019-09-19] MEDS: MULTIVITAMINS WITH MINERALS, THERAPEUTIC TABLET PO SCH (09:03)
[2019-09-19] MEDS: FOLIC ACID 1 MG TABLET PO SCH (09:03)
[2019-09-19] MEDS: DOCUSATE SODIUM 100 MG CAPSULE PO SCH ×3 (09:03→16:31)
[2019-09-19] MEDS: GABAPENTIN 300 MG CAPSULE PO PRN ×2 (10:34→18:29)
[2019-09-19 16:20] VITALS: BP 120/74
[2019-09-19] MEDS: OLANZapine 5 MG RAPDIS TABLET PO PRN (16:31)
[2019-09-20 00:08] VITALS: BP 115/64
[2019-09-20 08:03] VITALS: BP 114/64
[2019-09-20] MEDS: DOCUSATE SODIUM 100 MG CAPSULE PO SCH ×3 (08:12→16:31)
[2019-09-20] MEDS: MULTIVITAMINS WITH MINERALS, THERAPEUTIC TABLET PO SCH (08:12)
[2019-09-20] MEDS: FOLIC ACID 1 MG TABLET PO SCH (08:13)
[2019-09-20] MEDS: THIAMINE HCL 100 MG TABLET PO SCH (08:13)
[2019-09-20] MEDS: CloZAPine 100 MG TABLET PO SCH ×2 (08:13→20:37)
[2019-09-20] MEDS: FLUoxetine HCL 20 MG CAPSULE PO SCH (09:41)
[2019-09-20] MEDS: GABAPENTIN 300 MG CAPSULE PO PRN (12:39)
[2019-09-20 16:06] VITALS: BP 120/79
[2019-09-20] MEDS: OLANZapine 5 MG RAPDIS TABLET PO PRN (16:31)
[2019-09-21 06:05] VITALS: BP 118/72
[2019-09-21 08:26] VITALS: BP 116/66
[2019-09-21] MEDS: MULTIVITAMINS WITH MINERALS, THERAPEUTIC TABLET PO SCH (08:27)
[2019-09-21] MEDS: DOCUSATE SODIUM 100 MG CAPSULE PO SCH ×3 (08:27→16:27)
[2019-09-21] MEDS: FLUoxetine HCL 20 MG CAPSULE PO SCH (08:29)
[2019-09-21] MEDS ORDERED: CloZAPine 25 MG TABLET PO SCH (09:00)
[2019-09-21] MEDS: GABAPENTIN 300 MG CAPSULE PO PRN (16:27)
[2019-09-21] MEDS: OLANZapine 5 MG RAPDIS TABLET PO PRN (16:53)
[2019-09-21 17:52] VITALS: BP 100/68
[2019-09-21] MEDS ORDERED: CloZAPine 100 MG TABLET PO SCH (21:00)
[2019-09-22 06:30] VITALS: BP 115/73
[2019-09-22 08:18] VITALS: BP 114/68
[2019-09-22] MEDS ORDERED: CloZAPine 25 MG TABLET PO SCH (09:00)
[2019-09-22] MEDS: FLUoxetine HCL 20 MG CAPSULE PO SCH (09:05)
[2019-09-22] MEDS: DOCUSATE SODIUM 100 MG CAPSULE PO SCH ×3 (09:05→16:48)
[2019-09-22] MEDS: MULTIVITAMINS WITH MINERALS, THERAPEUTIC TABLET PO SCH (09:05)
[2019-09-22] MEDS: GABAPENTIN 300 MG CAPSULE PO PRN (13:14)
[2019-09-22 16:07] VITALS: BP 121/79
[2019-09-22] MEDS: OLANZapine 5 MG RAPDIS TABLET PO PRN (17:50)
[2019-09-22] MEDS ORDERED: CloZAPine 100 MG TABLET PO SCH (21:00)
[2019-09-23 07:09] VITALS: BP 105/62
[2019-09-23 08:07] VITALS: BP 107/66
[2019-09-23] MEDS: CloZAPine 100 MG TABLET PO SCH (08:15)
[2019-09-23] MEDS: FLUoxetine HCL 20 MG CAPSULE PO SCH (08:15)
[2019-09-23] MEDS: DOCUSATE SODIUM 100 MG CAPSULE PO SCH ×3 (08:15→16:02)
[2019-09-23] MEDS: MULTIVITAMINS WITH MINERALS, THERAPEUTIC TABLET PO SCH (08:15)
[2019-09-23] MEDS: GABAPENTIN 300 MG CAPSULE PO PRN (11:11)
[2019-09-23 16:00] VITALS: BP 117/71
[2019-09-23] MEDS: ZOLPIDEM TARTRATE 10 MG TABLET PO PRN (20:08)
[2019-09-23] MEDS ORDERED: CloZAPine 100 MG TABLET PO SCH (21:00)
[2019-09-24 04:35] VITALS: BP 115/73
[2019-09-24] MEDS: MULTIVITAMINS WITH MINERALS, THERAPEUTIC TABLET PO SCH (08:23)
[2019-09-24] MEDS: DOCUSATE SODIUM 100 MG CAPSULE PO SCH ×2 (08:23→12:41)
[2019-09-24] MEDS: CloZAPine 100 MG TABLET PO SCH (08:23)
[2019-09-24 08:38] VITALS: BP 118/66
[2019-09-24] MEDS ORDERED: FLUoxetine HCL 20 MG CAPSULE PO SCH (09:00)
[2019-09-24] MEDS ORDERED: FLUO-191 PO (11:45)
[2019-09-24] MEDS ORDERED: CLOZ100 PO ×2 (11:45)
== END 2019-09-24 15:13 | disposition home or self-care (01) | DRG 885 ==
LOC: B2X 12:29
PROVIDERS: ADMIT Psychiatry & Neurology Psychiatry; ATTEND Psychiatry & Neurology Psychiatry
DX: F25.1 Schizoaffective disorder, depressive type (principal); R45.851 Suicidal ideations; G44.209 Tension-type headache, unspecified, not intractable; I10 Essential (primary) hypertension; E03.9 Hypothyroidism, unspecified; F12.90 Cannabis use, unspecified, uncomplicated; D64.9 Anemia, unspecified; F17.210 Nicotine dependence, cigarettes, uncomplicated; K59.00 Constipation, unspecified; Z81.8 Family history of other mental and behavioral disorders; Z65.3 Problems related to other legal circumstances; Z91.14 Patient's other noncompliance with medication regimen
CPT/HCPCS: 80074; 83036; 84436; 84439; 86592

== ENCOUNTER 2020-11-18 13:24 | Emergency (ER) | payer MEDICARE, OTHER ==
[~2020-11-18] VITALS: Ht 180.3 cm; Wt 90.9 kg
[~2020-11-18 13:24] MED LIST changes: -QUET200T PO; +RISP2TAB45 PO; -RISP4 PO
[2020-11-18 14:30] LABS: BASOPHILS % (AUTO) 1.1 % (0.0-2.0); EOSINOPHILS % (AUTO) 2.8 % (1.0-6.0); HEMATOCRIT 37.7 % (41-53); LYMPHOCYTES # (AUTO) 2.1 K/uL (1.0-4.8); MEAN CORPUSCULAR HEMOGLOBIN 28.3 pg (26.0-34.0); MEAN CORPUSCULAR HGB CONC 34.5 G/dL (31.0-37.0); MEAN CORPUSCULAR VOLUME 82 fL (80-100); MONOCYTES # (AUTO) 0.8 K/uL (0.1-1.0); MONOCYTES % (AUTO) 10.2 % (2.0-9.0); NEUTROPHILS # (AUTO) 4.5 K/uL (1.8-7.7); NEUTROPHILS % (AUTO) 58.9 % (40.0-70.0); PLATELET COUNT (AUTO) 381 K/uL (150-450); RED CELL DISTRIBUTION WIDTH 12.9 % (11.5-14.5)
[2020-11-18 14:45] LABS: ANION GAP 8 mmol/L (8-16); CALCIUM, TOTAL 8.5 mg/dL (8.8-10.5); CARBON DIOXIDE 27 mmol/L (22-29); CHLORIDE 104 mmol/L (98-107); CREATININE 0.92 mg/dL (0.60-1.30); GLOMERULAR FILTR. RATE CALC > 60 mL/min (>60); GLUCOSE,RANDOM 107 mg/dL (70-110); POTASSIUM 3.5 mmol/L (3.5-5.1); SODIUM SERUM 139 mmol/L (136-145); UREA NITROGEN, BLOOD 16 mg/dL (7-18)
[2020-11-18 14:50] LABS: ALANINE AMINOTRANSFERASE 42 U/L (12-78); ALBUMIN 3.4 g/dL (3.4-5.0); ALKALINE PHOSPHATASE 108 U/L (46-116); ASPARTATE AMINOTRANSFERASE 47 U/L (15-37); BILIRUBIN,TOTAL 0.9 mg/dL (0.1-1.0); TOTAL PROTEIN, SERUM 6.6 g/dL (6.4-8.2)
[2020-11-18] MEDS ORDERED: QUEtiapine FUMARATE 100 MG TABLET PO ONE (15:15)
[2020-11-18 15:31] LABS: AMPHET/METH SCREEN,URINE POSITIVE (NEGATIVE); BARBITURATE SCREEN, URINE NEGATIVE (NEGATIVE); BENZODIAZEPINES SCREEN,URINE NEGATIVE (NEGATIVE); CANNABINOID SCREEN,URINE NEGATIVE (NEGATIVE); COCAINE SCREEN,URINE NEGATIVE (NEGATIVE); METHADONE SCREEN, URINE NEGATIVE (NEGATIVE); OPIATE SCREEN,URINE NEGATIVE (NEGATIVE); PHENCYCLIDINE SCREEN,URINE NEGATIVE (NEGATIVE)
[2020-11-18 16:23] VITALS: BP 137/69
== END 2020-11-18 16:28 | disposition home or self-care (01) ==
LOC: EMS 13:27
DX: F20.9 Schizophrenia, unspecified (principal)
CPT/HCPCS: 36415; 80053; 80307; 85025; 99284; G0480

== ENCOUNTER 2021-12-04 10:19 | Inpatient (IN) | payer MEDICARE, MEDICAID ==
[~2021-12-04] VITALS: Ht 180.3 cm; Wt 96.6 kg
[2021-12-04 12:01] LABS: BASOPHILS % (AUTO) 0.9 % (0.0-2.0); EOSINOPHILS % (AUTO) 1.9 % (1.0-6.0); HEMATOCRIT 41.2 % (41-53); HEMOGLOBIN 14.4 g/dL (13.5-17.5); LYMPHOCYTES # (AUTO) 2.1 K/uL (1.0-4.8); LYMPHOCYTES % (AUTO) 28.7 % (22.0-44.0); MEAN CORPUSCULAR HEMOGLOBIN 28.2 pg (26.0-34.0); MEAN CORPUSCULAR VOLUME 81 fL (80-100); MONOCYTES # (AUTO) 0.4 K/uL (0.1-1.0); MONOCYTES % (AUTO) 5.1 % (2.0-9.0); NEUTROPHILS # (AUTO) 4.6 K/uL (1.8-7.7); NEUTROPHILS % (AUTO) 63.4 % (40.0-70.0); PLATELET COUNT (AUTO) 368 K/uL (150-450); RED BLOOD CELL COUNT(AUTO) 5.11 MIL/uL (4.50-5.90); RED CELL DISTRIBUTION WIDTH 14.2 % (11.5-14.5)
[2021-12-04 12:11] LABS: ANION GAP 9 mmol/L (8-16); CALCIUM, TOTAL 8.4 mg/dL (8.8-10.5); CARBON DIOXIDE 29 mmol/L (22-29); CHLORIDE 104 mmol/L (98-107); CREATININE 0.64 mg/dL (0.60-1.30); GLOMERULAR FILTR. RATE CALC > 60 mL/min (>60); GLUCOSE,RANDOM 99 mg/dL (70-110); POTASSIUM 4.1 mmol/L (3.5-5.1); SODIUM SERUM 142 mmol/L (136-145); UREA NITROGEN, BLOOD 10 mg/dL (7-18)
[2021-12-04 12:14] LABS: AMPHET/METH SCREEN,URINE NEGATIVE (NEGATIVE); BARBITURATE SCREEN, URINE NEGATIVE (NEGATIVE); BENZODIAZEPINES SCREEN,URINE NEGATIVE (NEGATIVE); CANNABINOID SCREEN,URINE NEGATIVE (NEGATIVE); COCAINE SCREEN,URINE NEGATIVE (NEGATIVE); METHADONE SCREEN, URINE NEGATIVE (NEGATIVE); OPIATE SCREEN,URINE NEGATIVE (NEGATIVE); PHENCYCLIDINE SCREEN,URINE NEGATIVE (NEGATIVE)
[2021-12-04 12:18] LABS: ALANINE AMINOTRANSFERASE 26 U/L (12-78); ALBUMIN 3.5 g/dL (3.4-5.0); ALKALINE PHOSPHATASE 73 U/L (46-116); ASPARTATE AMINOTRANSFERASE 14 U/L (15-37); TOTAL PROTEIN, SERUM 6.4 g/dL (6.4-8.2)
[2021-12-04 17:02] LABS: COVID AG,FIA SOURCE NASAL SWAB
[2021-12-04 20:45] LABS: APPEARANCE,URINE CLEAR (CLEAR); BILIRUBIN,URINE NEGATIVE (NEGATIVE); GLUCOSE, URINE (UA) NEGATIVE (NEGATIVE); KETONES,URINE NEGATIVE (NEGATIVE); LEUKOCYTE ESTERASE ,URINE NEGATIVE (NEGATIVE); NITRATE,URINE NEGATIVE (NEGATIVE); OCCULT BLOOD,URINE NEGATIVE (NEGATIVE); PROTEIN,URINE NEGATIVE (NEGATIVE)
[2021-12-05] MEDS: ZOLPIDEM TARTRATE 10 MG TABLET PO PRN (00:06)
[2021-12-05] MEDS: LORazepam 2 MG TABLET PO PRN ×2 (00:06→14:17)
[2021-12-05 00:46] VITALS: BP 116/76
[2021-12-05] MEDS ORDERED: INFLUENZA VIRUS VACCINE QVS 2021-22 (6MO+)/PF 60 MCG/0.5 ML SYRINGE IM. ONE (04:15)
[2021-12-05 08:16] LABS: CHOL/HDL RATIO 2.7 (4.2-7.3)
[2021-12-05 08:25] VITALS: BP 116/71
[2021-12-05] MEDS ORDERED: MAG HYDROX/AL HYDROX/SIMETH ES 30 ML SUSPENSION UDCUP PO PRN (11:15)
[2021-12-05] MEDS ORDERED: ALBUTEROL SULFATE HFA 90 MCG/PUFF 8 GM INHALER IH PRN (11:15)
[2021-12-05] MEDS ORDERED: PETROLATUM,WHITE 28 GM JELLY TP PRN (11:15)
[2021-12-05] MEDS ORDERED: DOCUSATE SODIUM 100 MG CAPSULE PO PRN (11:15)
[2021-12-05] MEDS ORDERED: CloNIDine HCL 0.1 MG TABLET PO PRN (11:15)
[2021-12-05] MEDS ORDERED: ONDANSETRON HCL 4 MG TABLET PO PRN (11:15)
[2021-12-05] MEDS ORDERED: MAGNESIUM HYDROXIDE SUSPENSION 30 ML UDCUP PO PRN (11:15)
[2021-12-05] MEDS ORDERED: GuaiFENesin/D-METHORPHAN [SUGAR-FREE] 200-20MG/10 ML SYRUP UDCUP PO PRN (11:15)
[2021-12-05] MEDS ORDERED: IBUPROFEN 400 MG TABLET PO PRN (11:15)
[2021-12-05] MEDS: SERTRALINE HCL 50 MG TABLET PO SCH (14:14)
[2021-12-05 16:03] VITALS: BP 105/60
[2021-12-05] MEDS: RisperiDONE 2 MG TABLET PO SCH (17:33)
[2021-12-05] MEDS: HALOPERIDOL 5 MG TABLET PO PRN (17:34)
[2021-12-06 00:34] VITALS: BP 118/67
[2021-12-06] MEDS: RisperiDONE 2 MG TABLET PO SCH ×2 (08:10→17:03)
[2021-12-06] MEDS: SERTRALINE HCL 50 MG TABLET PO SCH (08:10)
[2021-12-06] MEDS: LORazepam 2 MG TABLET PO PRN ×2 (08:10→17:03)
[2021-12-06 08:17] VITALS: BP 109/61
[2021-12-06] MEDS: NICOTINE 14 MG/24 HOUR PATCH TD PRN (14:27)
[2021-12-06 16:14] VITALS: BP 113/65
[2021-12-06] MEDS: HALOPERIDOL 5 MG TABLET PO PRN (17:03)
[2021-12-07 03:29] VITALS: BP 114/63
[2021-12-07 08:24] VITALS: BP 120/68
[2021-12-07] MEDS: SERTRALINE HCL 50 MG TABLET PO SCH (08:32)
[2021-12-07] MEDS: LORazepam 2 MG TABLET PO PRN ×2 (08:33→17:46)
[2021-12-07] MEDS: RisperiDONE 2 MG TABLET PO SCH ×2 (08:33→17:04)
[2021-12-07] MEDS: HALOPERIDOL 5 MG TABLET PO PRN (08:42)
[2021-12-07] MEDS: NICOTINE 14 MG/24 HOUR PATCH TD PRN (08:51)
[2021-12-07 16:02] VITALS: BP 102/63
[2021-12-08 04:35] VITALS: BP 100/72
[2021-12-08 08:00] VITALS: BP 118/68
[2021-12-08] MEDS: RisperiDONE 2 MG TABLET PO SCH ×2 (08:35→16:12)
[2021-12-08] MEDS: SERTRALINE HCL 50 MG TABLET PO SCH (08:35)
[2021-12-08] MEDS: NICOTINE 14 MG/24 HOUR PATCH TD PRN (08:36)
[2021-12-08] MEDS: LORazepam 2 MG TABLET PO PRN ×2 (08:36→16:13)
[2021-12-08 16:06] VITALS: BP 105/65
[2021-12-08] MEDS: HALOPERIDOL 5 MG TABLET PO PRN (16:13)
[2021-12-08] MEDS: ZOLPIDEM TARTRATE 10 MG TABLET PO PRN (20:08)
[2021-12-09 03:27] VITALS: BP 112/68
[2021-12-09 08:02] VITALS: BP 118/70
[2021-12-09] MEDS: LORazepam 2 MG TABLET PO PRN ×2 (08:30→14:22)
[2021-12-09] MEDS: RisperiDONE 2 MG TABLET PO SCH ×2 (08:30→16:51)
[2021-12-09] MEDS: SERTRALINE HCL 50 MG TABLET PO SCH (08:30)
[2021-12-09] MEDS: NICOTINE 14 MG/24 HOUR PATCH TD PRN (08:47)
[2021-12-09] MEDS: HALOPERIDOL 5 MG TABLET PO PRN (14:22)
[2021-12-09 16:03] VITALS: BP 139/95
[2021-12-09] MEDS: LOPERAMIDE HCL 2 MG CAPSULE PO PRN (16:27)
[2021-12-10 01:39] VITALS: BP 104/66
[2021-12-10] MEDS: SERTRALINE HCL 50 MG TABLET PO SCH (08:09)
[2021-12-10] MEDS: RisperiDONE 2 MG TABLET PO SCH (08:09)
[2021-12-10] MEDS: LORazepam 2 MG TABLET PO PRN ×2 (08:09→14:41)
[2021-12-10 08:15] VITALS: BP 130/71
[2021-12-10] MEDS: NICOTINE 14 MG/24 HOUR PATCH TD PRN (08:23)
[2021-12-10] MEDS: HALOPERIDOL 5 MG TABLET PO PRN ×2 (08:48→16:23)
[2021-12-10] MEDS: LOPERAMIDE HCL 2 MG CAPSULE PO PRN (14:45)
[2021-12-10 16:08] VITALS: BP 109/63
[2021-12-10] MEDS: RisperiDONE 3 MG TABLET PO SCH (16:23)
[2021-12-11 05:01] VITALS: BP 116/71
[2021-12-11 08:08] VITALS: BP 89/56
[2021-12-11] MEDS: LORazepam 2 MG TABLET PO PRN ×3 (08:09→16:27)
[2021-12-11] MEDS: HALOPERIDOL 5 MG TABLET PO PRN ×3 (08:09→16:27)
[2021-12-11] MEDS: RisperiDONE 3 MG TABLET PO SCH ×2 (08:09→16:27)
[2021-12-11] MEDS: SERTRALINE HCL 50 MG TABLET PO SCH (08:09)
[2021-12-11] MEDS: NICOTINE 21 MG/24 HOUR PATCH TD PRN (08:45)
[2021-12-11 16:03] VITALS: BP 131/86
[2021-12-12 01:15] VITALS: BP 114/76
[2021-12-12 08:25] VITALS: BP 120/70
[2021-12-12] MEDS: SERTRALINE HCL 50 MG TABLET PO SCH (09:06)
[2021-12-12] MEDS: RisperiDONE 3 MG TABLET PO SCH ×2 (09:06→16:15)
[2021-12-12] MEDS: LORazepam 2 MG TABLET PO PRN ×2 (09:06→16:15)
[2021-12-12] MEDS: NICOTINE 21 MG/24 HOUR PATCH TD PRN (09:09)
[2021-12-12 16:01] VITALS: BP 103/66
[2021-12-12] MEDS: HALOPERIDOL 5 MG TABLET PO PRN (16:15)
[2021-12-13 05:03] VITALS: BP 102/61
[2021-12-13] MEDS: NICOTINE 21 MG/24 HOUR PATCH TD PRN (06:52)
[2021-12-13 08:02] VITALS: BP 120/68
[2021-12-13] MEDS: LORazepam 2 MG TABLET PO PRN ×2 (08:03→16:36)
[2021-12-13] MEDS: RisperiDONE 3 MG TABLET PO SCH ×2 (08:03→16:36)
[2021-12-13] MEDS: SERTRALINE HCL 50 MG TABLET PO SCH (08:03)
[2021-12-13 16:24] VITALS: BP 110/59
[2021-12-13] MEDS: HALOPERIDOL 5 MG TABLET PO PRN (16:36)
[2021-12-14 04:23] VITALS: BP 104/60
[2021-12-14] MEDS: LORazepam 2 MG TABLET PO PRN ×2 (08:12→16:14)
[2021-12-14] MEDS: SERTRALINE HCL 50 MG TABLET PO SCH (08:12)
[2021-12-14] MEDS: RisperiDONE 3 MG TABLET PO SCH ×2 (08:12→16:13)
[2021-12-14] MEDS: HALOPERIDOL 5 MG TABLET PO PRN ×2 (08:12→16:13)
[2021-12-14] MEDS: NICOTINE 21 MG/24 HOUR PATCH TD PRN (09:25)
[2021-12-14 10:10] VITALS: BP 110/70
[2021-12-14 16:05] VITALS: BP 106/65
[2021-12-14] MEDS: ACETAMINOPHEN 325 MG TABLET PO PRN (16:14)
[2021-12-15 04:20] VITALS: BP 126/78
[2021-12-15 08:00] VITALS: BP 128/76
[2021-12-15] MEDS: SERTRALINE HCL 50 MG TABLET PO SCH (08:12)
[2021-12-15] MEDS: RisperiDONE 3 MG TABLET PO SCH ×2 (08:12→16:11)
[2021-12-15] MEDS: LORazepam 2 MG TABLET PO PRN ×2 (08:12→12:24)
[2021-12-15] MEDS: HALOPERIDOL 5 MG TABLET PO PRN ×2 (08:12→15:01)
[2021-12-15] MEDS: ACETAMINOPHEN 325 MG TABLET PO PRN (12:24)
[2021-12-15 16:00] VITALS: BP 108/65
[2021-12-16 00:37] VITALS: BP 124/68
[2021-12-16] MEDS: NICOTINE 21 MG/24 HOUR PATCH TD PRN (08:11)
[2021-12-16] MEDS ORDERED: RISP3TAB35 PO (08:18)
[2021-12-16] MEDS ORDERED: SERT-158 PO (08:18)
[2021-12-16] MEDS ORDERED: SERT-439 PO (09:13)
[2021-12-16] MEDS ORDERED: RISP3TAB63 PO (09:13)
[2021-12-16] MEDS: RisperiDONE 3 MG TABLET PO SCH (09:15)
[2021-12-16] MEDS: SERTRALINE HCL 50 MG TABLET PO SCH (09:16)
[2021-12-16 09:17] VITALS: BP 120/78
== END 2021-12-16 10:00 | disposition home or self-care (01) | DRG 885 ==
LOC: EMS 10:27 → B3A 19:17
PROVIDERS: ADMIT Psychiatry & Neurology Child & Adolescent Psychiatry; ATTEND Psychiatry & Neurology Child & Adolescent Psychiatry
DX: F25.1 Schizoaffective disorder, depressive type (principal); F15.10 Other stimulant abuse, uncomplicated; F42.9 Obsessive-compulsive disorder, unspecified; G47.00 Insomnia, unspecified; K59.00 Constipation, unspecified; F32.A Depression, unspecified; F41.9 Anxiety disorder, unspecified; Z20.822 Contact with and (suspected) exposure to COVID-19; Z59.00 Homelessness unspecified; Z91.51 Personal history of suicidal behavior; Z88.0 Allergy status to penicillin; Z91.018 Allergy to other foods; Z91.09 Other allergy status, other than to drugs and biological substances; Z23 Encounter for immunization
CPT/HCPCS: 80053; 80061; 81003; 85025; 90686; 99285; G0480

== ENCOUNTER 2022-01-16 21:49 | Inpatient (IN) | payer MEDICARE, MEDICAID ==
[~2022-01-16] VITALS: Ht 175.3 cm; Wt 101.2 kg
[~2022-01-16 21:49] MED LIST changes: -RISP2TAB45 PO; +RISP3TAB35 PO; +RISP3TAB63 PO; +SERT-158 PO; +SERT-439 PO
[2022-01-16] MEDS ORDERED: OLAN10TA74 PO (22:01)
[2022-01-16 22:30] LABS: BASOPHILS % (AUTO) 0.9 % (0.0-2.0); EOSINOPHILS % (AUTO) 2.1 % (1.0-6.0); HEMATOCRIT 38.9 % (41-53); HEMOGLOBIN 13.6 g/dL (13.5-17.5); LYMPHOCYTES # (AUTO) 2.5 K/uL (1.0-4.8); LYMPHOCYTES % (AUTO) 37.7 % (22.0-44.0); MEAN CORPUSCULAR HEMOGLOBIN 27.9 pg (26.0-34.0); MEAN CORPUSCULAR VOLUME 80 fL (80-100); MONOCYTES # (AUTO) 0.6 K/uL (0.1-1.0); MONOCYTES % (AUTO) 8.7 % (2.0-9.0); NEUTROPHILS # (AUTO) 3.3 K/uL (1.8-7.7); NEUTROPHILS % (AUTO) 50.6 % (40.0-70.0); PLATELET COUNT (AUTO) 372 K/uL (150-450); RED BLOOD CELL COUNT(AUTO) 4.89 MIL/uL (4.50-5.90); RED CELL DISTRIBUTION WIDTH 13.9 % (11.5-14.5)
[2022-01-16 22:39] LABS: ANION GAP 10 mmol/L (8-16); CALCIUM, TOTAL 8.6 mg/dL (8.8-10.5); CARBON DIOXIDE 27 mmol/L (22-29); CHLORIDE 103 mmol/L (98-107); CREATININE 0.67 mg/dL (0.60-1.30); GLOMERULAR FILTR. RATE CALC > 60 mL/min (>60); GLUCOSE,RANDOM 92 mg/dL (70-110); POTASSIUM 3.4 mmol/L (3.5-5.1); SODIUM SERUM 140 mmol/L (136-145); UREA NITROGEN, BLOOD 10 mg/dL (7-18)
[2022-01-16 22:45] LABS: ALANINE AMINOTRANSFERASE 38 U/L (12-78); ALBUMIN 3.8 g/dL (3.4-5.0); ALKALINE PHOSPHATASE 94 U/L (46-116); ASPARTATE AMINOTRANSFERASE 25 U/L (15-37)
[2022-01-17] MEDS ORDERED: ZOLPIDEM TARTRATE 10 MG TABLET PO PRN (00:15)
[2022-01-17 02:19] LABS: APPEARANCE,URINE CLEAR (CLEAR); BILIRUBIN,URINE NEGATIVE (NEGATIVE); GLUCOSE, URINE (UA) NEGATIVE (NEGATIVE); KETONES,URINE NEGATIVE (NEGATIVE); LEUKOCYTE ESTERASE ,URINE NEGATIVE (NEGATIVE); NITRATE,URINE NEGATIVE (NEGATIVE); OCCULT BLOOD,URINE NEGATIVE (NEGATIVE); PROTEIN,URINE NEGATIVE (NEGATIVE); SPECIFIC GRAVITIY, URINE 1.013 (1.003-1.030); UROBILINOGEN,URINE <=1.0 mg/dL (<=1.0)
[2022-01-17 02:25] LABS: AMPHET/METH SCREEN,URINE POSITIVE (NEGATIVE); BARBITURATE SCREEN, URINE NEGATIVE (NEGATIVE); BENZODIAZEPINES SCREEN,URINE NEGATIVE (NEGATIVE); CANNABINOID SCREEN,URINE POSITIVE (NEGATIVE); COCAINE SCREEN,URINE NEGATIVE (NEGATIVE); METHADONE SCREEN, URINE NEGATIVE (NEGATIVE); OPIATE SCREEN,URINE NEGATIVE (NEGATIVE)
[2022-01-17 04:37] LABS: COVID AG,FIA SOURCE NASAL SWAB
[2022-01-17 05:12] LABS: PHENCYCLIDINE SCREEN,URINE NEGATIVE (NEGATIVE)
[2022-01-17 05:56] VITALS: BP 107/67
[2022-01-17] MEDS ORDERED: -PHARMACY VACCINE NOTE- MISC ONE (06:30)
[2022-01-17] MEDS ORDERED: POTASSIUM CHLORIDE 20 MEQ ER TABLET PO ONE (06:45)
[2022-01-17] MEDS ORDERED: ALBUTEROL SULFATE HFA 90 MCG/PUFF 8 GM INHALER IH PRN (07:15)
[2022-01-17] MEDS ORDERED: GuaiFENesin/D-METHORPHAN [SUGAR-FREE] 200-20MG/10 ML SYRUP UDCUP PO PRN (07:15)
[2022-01-17] MEDS ORDERED: CloNIDine HCL 0.1 MG TABLET PO PRN (07:15)
[2022-01-17] MEDS ORDERED: MAGNESIUM HYDROXIDE SUSPENSION 30 ML UDCUP PO PRN (07:15)
[2022-01-17] MEDS ORDERED: PETROLATUM,WHITE 28 GM JELLY TP PRN (07:15)
[2022-01-17] MEDS ORDERED: ONDANSETRON HCL 4 MG TABLET PO PRN (07:15)
[2022-01-17] MEDS ORDERED: MAG HYDROX/AL HYDROX/SIMETH ES 30 ML SUSPENSION UDCUP PO PRN (07:15)
[2022-01-17] MEDS ORDERED: DOCUSATE SODIUM 100 MG CAPSULE PO PRN (07:15)
[2022-01-17 08:50] VITALS: BP 120/69
[2022-01-17] MEDS ORDERED: RisperiDONE 3 MG TABLET PO ONE (11:00)
[2022-01-17] MEDS: SERTRALINE HCL 50 MG TABLET PO SCH (11:52)
[2022-01-17] MEDS: RisperiDONE 3 MG TABLET PO SCH ×2 (11:52→16:39)
[2022-01-17 16:23] VITALS: BP 122/60
[2022-01-17] MEDS: OLANZapine 10 MG TABLET PO SCH (20:10)
[2022-01-18 08:00] VITALS: BP 116/66
[2022-01-18] MEDS: SERTRALINE HCL 50 MG TABLET PO SCH (09:15)
[2022-01-18] MEDS: RisperiDONE 3 MG TABLET PO SCH ×2 (09:16→16:08)
[2022-01-18 16:06] VITALS: BP 110/78
[2022-01-18 16:30] VITALS: BP 110/79
[2022-01-18] MEDS: OLANZapine 10 MG TABLET PO SCH (20:05)
[2022-01-19] MEDS: SERTRALINE HCL 50 MG TABLET PO SCH (08:33)
[2022-01-19] MEDS: OLANZapine 10 MG TABLET PO SCH ×2 (08:33→20:12)
[2022-01-19 09:00] VITALS: BP 87/50
[2022-01-19 16:06] VITALS: BP 119/78
[2022-01-19 18:22] VITALS: BP 120/79
[2022-01-19] MEDS: IBUPROFEN 400 MG TABLET PO PRN (18:22)
[2022-01-20] MEDS: SERTRALINE HCL 50 MG TABLET PO SCH (10:17)
[2022-01-20] MEDS: OLANZapine 10 MG TABLET PO SCH ×2 (10:17→20:08)
[2022-01-20 12:30] VITALS: BP 118/63
[2022-01-20 16:44] VITALS: BP 108/60
[2022-01-21 08:41] VITALS: BP 108/65
[2022-01-21] MEDS: OLANZapine 10 MG TABLET PO SCH ×2 (09:07→20:06)
[2022-01-21] MEDS: SERTRALINE HCL 50 MG TABLET PO SCH (09:07)
[2022-01-21 16:20] VITALS: BP 117/74
[2022-01-22 01:27] VITALS: BP 128/78
[2022-01-22 08:02] VITALS: BP 104/63
[2022-01-22] MEDS: SERTRALINE HCL 50 MG TABLET PO SCH (08:20)
[2022-01-22] MEDS: OLANZapine 10 MG TABLET PO SCH ×2 (08:20→20:09)
[2022-01-23] MEDS: OLANZapine 10 MG TABLET PO SCH ×2 (08:34→20:01)
[2022-01-23] MEDS: SERTRALINE HCL 50 MG TABLET PO SCH (08:34)
[2022-01-23 09:00] VITALS: BP 110/49
[2022-01-23 13:50] LABS: COVID AG,FIA SOURCE NASOPHARYNGEAL
[2022-01-23 16:13] VITALS: BP 107/79
[2022-01-23] MEDS: LORazepam 2 MG TABLET PO PRN (18:34)
[2022-01-23] MEDS: NICOTINE 14 MG/24 HOUR PATCH TD PRN (18:34)
[2022-01-24] MEDS: OLANZapine 10 MG TABLET PO SCH ×2 (08:44→20:05)
[2022-01-24] MEDS: SERTRALINE HCL 50 MG TABLET PO SCH (08:44)
[2022-01-24 09:00] VITALS: BP 123/82
[2022-01-24] MEDS: LORazepam 2 MG TABLET PO PRN (16:33)
[2022-01-24] MEDS: NICOTINE 14 MG/24 HOUR PATCH TD PRN (16:34)
[2022-01-24 16:52] VITALS: BP 115/92
[2022-01-25 08:00] VITALS: BP 98/51
[2022-01-25] MEDS: SERTRALINE HCL 50 MG TABLET PO SCH (09:26)
[2022-01-25] MEDS: OLANZapine 10 MG TABLET PO SCH ×2 (09:26→20:15)
[2022-01-25] MEDS: NICOTINE 14 MG/24 HOUR PATCH TD PRN (13:11)
[2022-01-25] MEDS: LORazepam 2 MG TABLET PO PRN ×2 (13:12→19:07)
[2022-01-25 16:33] VITALS: BP 106/63
[2022-01-25] MEDS: QUEtiapine FUMARATE 100 MG TABLET PO PRN (19:30)
[2022-01-25 20:14] VITALS: BP 106/63
[2022-01-26 08:00] VITALS: BP 102/50
[2022-01-26] MEDS: SERTRALINE HCL 50 MG TABLET PO SCH (08:19)
[2022-01-26] MEDS: OLANZapine 10 MG TABLET PO SCH ×2 (08:19→20:08)
[2022-01-26 16:24] VITALS: BP 133/83
[2022-01-26] MEDS: LORazepam 2 MG TABLET PO PRN (16:37)
[2022-01-26] MEDS: QUEtiapine FUMARATE 100 MG TABLET PO PRN (20:42)
[2022-01-26] MEDS: NICOTINE 14 MG/24 HOUR PATCH TD PRN (20:55)
[2022-01-27 08:00] VITALS: BP 146/69
[2022-01-27] MEDS: SERTRALINE HCL 50 MG TABLET PO SCH (09:48)
[2022-01-27] MEDS: OLANZapine 10 MG TABLET PO SCH ×2 (09:48→20:14)
[2022-01-27] MEDS: LORazepam 2 MG TABLET PO PRN ×2 (11:23→17:40)
[2022-01-27] MEDS: NICOTINE 14 MG/24 HOUR PATCH TD PRN (11:24)
[2022-01-27 17:36] VITALS: BP 109/61
[2022-01-27 17:40] VITALS: BP 109/61
[2022-01-27] MEDS: ACETAMINOPHEN 325 MG TABLET PO PRN (17:41)
[2022-01-27] MEDS: QUEtiapine FUMARATE 100 MG TABLET PO PRN (17:47)
[2022-01-28 08:38] VITALS: BP 100/55
[2022-01-28] MEDS: OLANZapine 10 MG TABLET PO SCH ×2 (08:57→20:02)
[2022-01-28] MEDS: SERTRALINE HCL 100 MG TABLET PO SCH (08:57)
[2022-01-28] MEDS: TERBINAFINE HCL 1% 30 GM CREAM TP SCH ×2 (08:57→16:16)
[2022-01-28] MEDS: LORazepam 2 MG TABLET PO PRN ×2 (10:50→16:52)
[2022-01-28] MEDS: NICOTINE 14 MG/24 HOUR PATCH TD PRN (10:51)
[2022-01-28 16:08] VITALS: BP 106/62
[2022-01-28] MEDS: QUEtiapine FUMARATE 100 MG TABLET PO PRN (16:55)
[2022-01-28] MEDS: ZOLPIDEM TARTRATE 10 MG TABLET PO PRN (20:01)
[2022-01-29] MEDS: TERBINAFINE HCL 1% 30 GM CREAM TP SCH ×2 (08:19→16:37)
[2022-01-29] MEDS: OLANZapine 10 MG TABLET PO SCH ×2 (08:19→20:00)
[2022-01-29] MEDS: SERTRALINE HCL 100 MG TABLET PO SCH (08:19)
[2022-01-29] MEDS: NICOTINE 14 MG/24 HOUR PATCH TD PRN (10:48)
[2022-01-29] MEDS: LORazepam 2 MG TABLET PO PRN ×2 (10:54→18:44)
[2022-01-29 16:19] VITALS: BP 105/64
[2022-01-29] MEDS: QUEtiapine FUMARATE 100 MG TABLET PO PRN (16:37)
[2022-01-29 18:44] VITALS: BP 112/71
[2022-01-29] MEDS: LOPERAMIDE HCL 2 MG CAPSULE PO PRN (18:44)
[2022-01-29] MEDS: ACETAMINOPHEN 325 MG TABLET PO PRN (19:24)
[2022-01-29] MEDS: ZOLPIDEM TARTRATE 10 MG TABLET PO PRN (20:00)
[2022-01-30] MEDS: TERBINAFINE HCL 1% 30 GM CREAM TP SCH ×2 (09:19→16:07)
[2022-01-30] MEDS: SERTRALINE HCL 100 MG TABLET PO SCH (09:19)
[2022-01-30] MEDS: OLANZapine 10 MG TABLET PO SCH ×2 (09:19→20:00)
[2022-01-30 09:20] VITALS: BP 105/59
[2022-01-30] MEDS: LORazepam 2 MG TABLET PO PRN ×2 (10:50→16:06)
[2022-01-30] MEDS: NICOTINE 14 MG/24 HOUR PATCH TD PRN (10:55)
[2022-01-30] MEDS: LOPERAMIDE HCL 2 MG CAPSULE PO PRN (11:18)
[2022-01-30 15:14] LABS: COVID AG,FIA SOURCE NASOPHARYNGEAL
[2022-01-30 16:03] VITALS: BP 113/67
[2022-01-30] MEDS: QUEtiapine FUMARATE 100 MG TABLET PO PRN (18:58)
[2022-01-30] MEDS: ZOLPIDEM TARTRATE 10 MG TABLET PO PRN (20:33)
[2022-01-31] MEDS: OLANZapine 10 MG TABLET PO SCH ×2 (09:08→20:28)
[2022-01-31] MEDS: SERTRALINE HCL 100 MG TABLET PO SCH (09:08)
[2022-01-31] MEDS: TERBINAFINE HCL 1% 30 GM CREAM TP SCH ×2 (09:08→16:52)
[2022-01-31 09:55] VITALS: BP 100/61
[2022-01-31] MEDS: LORazepam 2 MG TABLET PO PRN ×2 (10:46→16:25)
[2022-01-31] MEDS: NICOTINE 14 MG/24 HOUR PATCH TD PRN (10:57)
[2022-01-31 16:25] VITALS: BP 123/81
[2022-01-31] MEDS: ACETAMINOPHEN 325 MG TABLET PO PRN (16:25)
[2022-01-31 16:32] VITALS: BP 123/81
[2022-01-31] MEDS: QUEtiapine FUMARATE 100 MG TABLET PO PRN (16:52)
[2022-01-31] MEDS: ZOLPIDEM TARTRATE 10 MG TABLET PO PRN (20:46)
[2022-02-01 09:24] VITALS: BP 102/54
[2022-02-01] MEDS: SERTRALINE HCL 100 MG TABLET PO SCH (09:31)
[2022-02-01] MEDS: TERBINAFINE HCL 1% 30 GM CREAM TP SCH ×2 (09:31→16:23)
[2022-02-01] MEDS: OLANZapine 10 MG TABLET PO SCH ×2 (09:32→20:23)
[2022-02-01] MEDS: LORazepam 2 MG TABLET PO PRN (09:38)
[2022-02-01] MEDS: NICOTINE 14 MG/24 HOUR PATCH TD PRN (09:39)
[2022-02-01 16:30] VITALS: BP 116/86
[2022-02-01] MEDS: QUEtiapine FUMARATE 100 MG TABLET PO PRN (20:23)
[2022-02-01 20:24] VITALS: BP 124/77
[2022-02-01] MEDS: ACETAMINOPHEN 325 MG TABLET PO PRN (20:24)
[2022-02-01] MEDS: ZOLPIDEM TARTRATE 10 MG TABLET PO PRN (20:47)
[2022-02-02 04:26] VITALS: BP 124/69
[2022-02-02] MEDS: OLANZapine 10 MG TABLET PO SCH ×2 (08:57→20:11)
[2022-02-02] MEDS: SERTRALINE HCL 100 MG TABLET PO SCH (08:57)
[2022-02-02 10:23] VITALS: BP 96/55
[2022-02-02] MEDS: NICOTINE 14 MG/24 HOUR PATCH TD PRN (11:21)
[2022-02-02] MEDS: TERBINAFINE HCL 1% 30 GM CREAM TP SCH ×2 (11:24→16:28)
[2022-02-02] MEDS: QUEtiapine FUMARATE 100 MG TABLET PO PRN (14:28)
[2022-02-02 16:30] VITALS: BP 120/8
[2022-02-02] MEDS: ACETAMINOPHEN 325 MG TABLET PO PRN (16:31)
[2022-02-02] MEDS: ZOLPIDEM TARTRATE 10 MG TABLET PO PRN (20:10)
[2022-02-03 08:00] VITALS: BP 105/67
[2022-02-03] MEDS: TERBINAFINE HCL 1% 30 GM CREAM TP SCH ×2 (09:00→16:10)
[2022-02-03] MEDS: SERTRALINE HCL 100 MG TABLET PO SCH (09:20)
[2022-02-03] MEDS: OLANZapine 10 MG TABLET PO SCH ×2 (09:21→20:21)
[2022-02-03] MEDS: NICOTINE 14 MG/24 HOUR PATCH TD PRN (12:54)
[2022-02-03] MEDS: QUEtiapine FUMARATE 100 MG TABLET PO PRN (13:41)
[2022-02-03] MEDS: IBUPROFEN 400 MG TABLET PO PRN (15:05)
[2022-02-03 16:18] VITALS: BP 100/61
[2022-02-03] MEDS: ACETAMINOPHEN 325 MG TABLET PO PRN (16:18)
[2022-02-03 16:25] VITALS: BP 100/61
[2022-02-03] MEDS: ZOLPIDEM TARTRATE 10 MG TABLET PO PRN (20:21)
[2022-02-04] MEDS: NICOTINE 21 MG/24 HOUR PATCH TD SCH (07:59)
[2022-02-04] MEDS: SERTRALINE HCL 100 MG TABLET PO SCH (09:03)
[2022-02-04] MEDS: OLANZapine 10 MG TABLET PO SCH ×2 (09:03→20:01)
[2022-02-04] MEDS: TERBINAFINE HCL 1% 30 GM CREAM TP SCH ×2 (09:04→16:29)
[2022-02-04 09:38] VITALS: BP 132/81
[2022-02-04] MEDS: QUEtiapine FUMARATE 100 MG TABLET PO PRN (12:28)
[2022-02-04 13:12] VITALS: BP 128/82
[2022-02-04] MEDS: IBUPROFEN 400 MG TABLET PO PRN (13:12)
[2022-02-04] MEDS: LORazepam 2 MG TABLET PO PRN (16:54)
[2022-02-04 17:11] VITALS: BP 108/65
[2022-02-04] MEDS: ZOLPIDEM TARTRATE 10 MG TABLET PO PRN (20:01)
[2022-02-05 08:00] VITALS: BP 105/65
[2022-02-05] MEDS: SERTRALINE HCL 100 MG TABLET PO SCH (08:46)
[2022-02-05] MEDS: OLANZapine 10 MG TABLET PO SCH ×2 (08:46→20:04)
[2022-02-05] MEDS: NICOTINE 21 MG/24 HOUR PATCH TD SCH (08:48)
[2022-02-05] MEDS: LORazepam 2 MG TABLET PO PRN ×2 (09:55→15:55)
[2022-02-05] MEDS: TERBINAFINE HCL 1% 30 GM CREAM TP SCH ×2 (10:36→16:04)
[2022-02-05 16:46] VITALS: BP 119/70
[2022-02-05] MEDS: ZOLPIDEM TARTRATE 10 MG TABLET PO PRN (21:09)
[2022-02-06] MEDS: SERTRALINE HCL 100 MG TABLET PO SCH (09:09)
[2022-02-06] MEDS: TERBINAFINE HCL 1% 30 GM CREAM TP SCH ×2 (09:09→16:54)
[2022-02-06] MEDS: OLANZapine 10 MG TABLET PO SCH ×2 (09:09→20:52)
[2022-02-06] MEDS: NICOTINE 21 MG/24 HOUR PATCH TD SCH (09:09)
[2022-02-06 10:12] VITALS: BP 96/43
[2022-02-06] MEDS: LORazepam 2 MG TABLET PO PRN (10:29)
[2022-02-06 12:10] LABS: COVID AG,FIA SOURCE NASOPHARYNGEAL
[2022-02-06 16:14] VITALS: BP 139/75
[2022-02-06 16:55] VITALS: BP 139/75
[2022-02-06] MEDS: ACETAMINOPHEN 325 MG TABLET PO PRN (16:55)
[2022-02-06] MEDS: QUEtiapine FUMARATE 100 MG TABLET PO PRN (20:52)
[2022-02-06] MEDS: ZOLPIDEM TARTRATE 10 MG TABLET PO PRN (20:57)
[2022-02-07 09:00] VITALS: BP 119/58
[2022-02-07] MEDS: SERTRALINE HCL 100 MG TABLET PO SCH (09:05)
[2022-02-07] MEDS: NICOTINE 21 MG/24 HOUR PATCH TD SCH (09:05)
[2022-02-07] MEDS: TERBINAFINE HCL 1% 30 GM CREAM TP SCH ×2 (09:05→16:20)
[2022-02-07] MEDS: OLANZapine 10 MG TABLET PO SCH ×2 (09:05→20:16)
[2022-02-07] MEDS: LORazepam 2 MG TABLET PO PRN (12:43)
[2022-02-07 16:20] VITALS: BP 110/69
[2022-02-07] MEDS: ACETAMINOPHEN 325 MG TABLET PO PRN (16:20)
[2022-02-07] MEDS: QUEtiapine FUMARATE 100 MG TABLET PO PRN (17:08)
[2022-02-07] MEDS: ZOLPIDEM TARTRATE 10 MG TABLET PO PRN (20:49)
[2022-02-08 08:00] VITALS: BP 116/66
[2022-02-08] MEDS: OLANZapine 10 MG TABLET PO SCH (09:30)
[2022-02-08] MEDS: NICOTINE 21 MG/24 HOUR PATCH TD SCH (09:31)
[2022-02-08] MEDS: SERTRALINE HCL 100 MG TABLET PO SCH (09:31)
[2022-02-08] MEDS: TERBINAFINE HCL 1% 30 GM CREAM TP SCH (09:31)
[2022-02-08] MEDS ORDERED: OLAN10TA74 PO (10:11)
[2022-02-08] MEDS ORDERED: OLAN10 PO (10:11)
[2022-02-08] MEDS ORDERED: SERT-440 PO (10:11)
[2022-02-08] MEDS ORDERED: TERB30CR8 TP (13:28)
== END 2022-02-08 16:16 | disposition home or self-care (01) | DRG 885 ==
LOC: EMS 21:55 → 3EX 01-17 05:19
PROVIDERS: ADMIT Psychiatry & Neurology Psychiatry; ATTEND Psychiatry & Neurology Psychiatry
DX: F25.1 Schizoaffective disorder, depressive type (principal); F15.10 Other stimulant abuse, uncomplicated; F12.10 Cannabis abuse, uncomplicated; E87.6 Hypokalemia; E66.3 Overweight; D64.9 Anemia, unspecified; F42.9 Obsessive-compulsive disorder, unspecified; Z20.822 Contact with and (suspected) exposure to COVID-19; K75.9 Inflammatory liver disease, unspecified; F41.9 Anxiety disorder, unspecified; F32.A Depression, unspecified; Z88.0 Allergy status to penicillin; Z88.9 Allergy status to unspecified drugs, medicaments and biological substances; Z59.00 Homelessness unspecified; Z79.899 Other long term (current) drug therapy; Z71.51 Drug abuse counseling and surveillance of drug abuser; Z68.33 Body mass index [BMI] 33.0-33.9, adult
CPT/HCPCS: 80053; 81003; 84132; 85025; 87081; 99285; G0378; G0480

== ENCOUNTER 2022-03-21 05:21 | Inpatient (IN) | payer MEDICARE, MEDICAID ==
[~2022-03-21] VITALS: Ht 180.3 cm; Wt 91.3 kg
[~2022-03-21 05:21] MED LIST changes: +OLAN10 PO; +OLAN10TA74 PO; -RISP3TAB35 PO; -RISP3TAB63 PO; -SERT-158 PO; -SERT-439 PO; +SERT-440 PO; +TERB30CR8 TP
[2022-03-21 05:36] LABS: BASOPHILS % (AUTO) 0.6 % (0.0-2.0); HEMATOCRIT 40.4 % (41-53); LYMPHOCYTES # (AUTO) 2.4 K/uL (1.0-4.8); LYMPHOCYTES % (AUTO) 35.6 % (22.0-44.0); MEAN CORPUSCULAR HEMOGLOBIN 28.2 pg (26.0-34.0); MEAN CORPUSCULAR HGB CONC 34.7 G/dL (31.0-37.0); MEAN CORPUSCULAR VOLUME 82 fL (80-100); MONOCYTES # (AUTO) 0.4 K/uL (0.1-1.0); MONOCYTES % (AUTO) 6.3 % (2.0-9.0); NEUTROPHILS # (AUTO) 3.7 K/uL (1.8-7.7); NEUTROPHILS % (AUTO) 54.5 % (40.0-70.0); PLATELET COUNT (AUTO) 337 K/uL (150-450); RED BLOOD CELL COUNT(AUTO) 4.96 MIL/uL (4.50-5.90); RED CELL DISTRIBUTION WIDTH 13.4 % (11.5-14.5)
[2022-03-21 05:45] LABS: ANION GAP 4 mmol/L (8-16); CALCIUM, TOTAL 8.7 mg/dL (8.8-10.5); CARBON DIOXIDE 32 mmol/L (22-29); CHLORIDE 107 mmol/L (98-107); CREATININE 0.65 mg/dL (0.60-1.30); GLOMERULAR FILTR. RATE CALC > 60 mL/min (>60); GLUCOSE,RANDOM 92 mg/dL (70-110); POTASSIUM 4.6 mmol/L (3.5-5.1); SODIUM SERUM 143 mmol/L (136-145); UREA NITROGEN, BLOOD 12 mg/dL (7-18)
[2022-03-21 05:51] LABS: ALANINE AMINOTRANSFERASE 20 U/L (12-78); ALBUMIN 3.5 g/dL (3.4-5.0); ALKALINE PHOSPHATASE 67 U/L (46-116); ASPARTATE AMINOTRANSFERASE 16 U/L (15-37); BILIRUBIN,TOTAL 1.5 mg/dL (0.1-1.0); TOTAL PROTEIN, SERUM 6.9 g/dL (6.4-8.2)
[2022-03-21] MEDS ORDERED: ZOLPIDEM TARTRATE 10 MG TABLET PO PRN (08:45)
[2022-03-21] MEDS ORDERED: OLANZapine 5 MG RAPDIS TABLET PO PRN (08:45)
[2022-03-21] MEDS ORDERED: LORazepam 2 MG TABLET PO PRN (08:45)
[2022-03-21 14:46] LABS: COVID AG,FIA SOURCE NASAL SWAB
[2022-03-21 17:11] LABS: APPEARANCE,URINE CLEAR (CLEAR); BILIRUBIN,URINE NEGATIVE (NEGATIVE); GLUCOSE, URINE (UA) NEGATIVE (NEGATIVE); KETONES,URINE NEGATIVE (NEGATIVE); LEUKOCYTE ESTERASE ,URINE NEGATIVE (NEGATIVE); NITRATE,URINE NEGATIVE (NEGATIVE); OCCULT BLOOD,URINE NEGATIVE (NEGATIVE); PH,URINE 6.5 (5.0-8.0); PROTEIN,URINE NEGATIVE (NEGATIVE); SPECIFIC GRAVITIY, URINE 1.012 (1.003-1.030); UROBILINOGEN,URINE <=1.0 mg/dL (<=1.0)
[2022-03-21 17:19] LABS: AMPHET/METH SCREEN,URINE NEGATIVE (NEGATIVE); BARBITURATE SCREEN, URINE NEGATIVE (NEGATIVE); BENZODIAZEPINES SCREEN,URINE NEGATIVE (NEGATIVE); CANNABINOID SCREEN,URINE NEGATIVE (NEGATIVE); COCAINE SCREEN,URINE NEGATIVE (NEGATIVE); METHADONE SCREEN, URINE NEGATIVE (NEGATIVE); OPIATE SCREEN,URINE NEGATIVE (NEGATIVE); PHENCYCLIDINE SCREEN,URINE NEGATIVE (NEGATIVE)
[2022-03-22 13:30] VITALS: BP 114/68
[2022-03-22] MEDS ORDERED: ZOLPIDEM TARTRATE 10 MG TABLET PO PRN (15:00)
[2022-03-22] MEDS ORDERED: PROMETHAZINE HCL 25 MG TABLET PO PRN (15:00)
[2022-03-22] MEDS ORDERED: HydrOXYzine PAMOATE 50 MG CAPSULE PO PRN (15:00)
[2022-03-22] MEDS ORDERED: PALIPERIDONE PALMITATE 234 MG/1.5 ML SYRINGE IM ONE (15:00)
[2022-03-22] MEDS ORDERED: GuaiFENesin/D-METHORPHAN [SUGAR-FREE] 200-20MG/10 ML SYRUP UDCUP PO PRN (15:00)
[2022-03-22] MEDS ORDERED: TUBERCULIN, PURIFIED PROTEIN DERIVATIVE 5 TU/0.1 ML SYRINGE ID ONE (15:00)
[2022-03-22 16:16] VITALS: BP 113/59
[2022-03-22] MEDS: THIAMINE 100 MG TABLET PO SCH (16:35)
[2022-03-22] MEDS: MELATONIN 5 MG TABLET PO SCH (20:58)
[2022-03-22] MEDS ORDERED: OLANZapine 5 MG RAPDIS TABLET PO SCH (21:00)
[2022-03-23 00:20] VITALS: BP 126/68
[2022-03-23 07:10] LABS: HEMOGLOBIN A1C 4.8 % (3.8-5.6)
[2022-03-23 07:33] LABS: CHOL/HDL RATIO 2.6 (4.2-7.3); FREE T4 (FREE THYROXINE) 0.91 ng/dL (0.76-1.46); THYROID STIMULATING HORMONE 2.36 uIU/mL (0.36-3.74)
[2022-03-23 08:10] VITALS: BP 126/69
[2022-03-23] MEDS: THIAMINE 100 MG TABLET PO SCH ×2 (09:39→16:14)
[2022-03-23] MEDS: OMEGA-3/DHA/EPA/FISH OIL 1,000 MG CAPSULE PO SCH (09:39)
[2022-03-23] MEDS: SERTRALINE HCL 50 MG TABLET PO SCH (09:39)
[2022-03-23] MEDS: MULTIVITAMINS WITH MINERALS, THERAPEUTIC TABLET PO SCH (09:39)
[2022-03-23] MEDS: NICOTINE 21 MG/24 HOUR PATCH TD SCH (09:39)
[2022-03-23] MEDS: FOLIC ACID 1 MG TABLET PO SCH (09:39)
[2022-03-23] MEDS: NALTREXONE HCL 50 MG TABLET PO SCH (09:40)
[2022-03-23 16:11] VITALS: BP 104/80
[2022-03-23] MEDS: LORazepam 2 MG TABLET PO PRN (16:14)
[2022-03-23] MEDS: MELATONIN 5 MG TABLET PO SCH (20:23)
[2022-03-24 00:54] VITALS: BP 116/82
[2022-03-24 08:37] VITALS: BP 103/63
[2022-03-24] MEDS: NALTREXONE HCL 50 MG TABLET PO SCH (09:58)
[2022-03-24] MEDS: FOLIC ACID 1 MG TABLET PO SCH (09:58)
[2022-03-24] MEDS: OMEGA-3/DHA/EPA/FISH OIL 1,000 MG CAPSULE PO SCH (09:58)
[2022-03-24] MEDS: NICOTINE 21 MG/24 HOUR PATCH TD SCH (09:59)
[2022-03-24] MEDS: THIAMINE 100 MG TABLET PO SCH ×2 (09:59→16:20)
[2022-03-24] MEDS: MULTIVITAMINS WITH MINERALS, THERAPEUTIC TABLET PO SCH (09:59)
[2022-03-24] MEDS: SERTRALINE HCL 50 MG TABLET PO SCH (09:59)
[2022-03-24] MEDS: LORazepam 2 MG TABLET PO PRN ×2 (14:19→18:22)
[2022-03-24 16:14] VITALS: BP 115/56
[2022-03-24 16:46] LABS: GLUCOMETER DEV NAME(LOC) POC.BV
[2022-03-24] MEDS: MELATONIN 5 MG TABLET PO SCH (20:51)
[2022-03-24] MEDS: OLANZapine 10 MG RAPDIS TABLET PO SCH (20:52)
[2022-03-25 08:08] VITALS: BP 118/64
[2022-03-25] MEDS: MULTIVITAMINS WITH MINERALS, THERAPEUTIC TABLET PO SCH (09:22)
[2022-03-25] MEDS: NICOTINE 21 MG/24 HOUR PATCH TD SCH (09:22)
[2022-03-25] MEDS: THIAMINE 100 MG TABLET PO SCH ×2 (09:23→16:19)
[2022-03-25] MEDS: OMEGA-3/DHA/EPA/FISH OIL 1,000 MG CAPSULE PO SCH (09:23)
[2022-03-25] MEDS: SERTRALINE HCL 50 MG TABLET PO SCH (09:23)
[2022-03-25] MEDS: FOLIC ACID 1 MG TABLET PO SCH (09:24)
[2022-03-25] MEDS: NALTREXONE HCL 50 MG TABLET PO SCH (09:25)
[2022-03-25 16:10] VITALS: BP 104/65
[2022-03-25] MEDS: LORazepam 2 MG TABLET PO PRN (19:01)
[2022-03-25] MEDS: OLANZapine 10 MG RAPDIS TABLET PO SCH (20:04)
[2022-03-25] MEDS: MELATONIN 5 MG TABLET PO SCH (20:04)
[2022-03-26 00:29] VITALS: BP 113/1
[2022-03-26 08:30] VITALS: BP 115/61
[2022-03-26] MEDS: SERTRALINE HCL 100 MG TABLET PO SCH (08:54)
[2022-03-26] MEDS: OMEGA-3/DHA/EPA/FISH OIL 1,000 MG CAPSULE PO SCH (08:54)
[2022-03-26] MEDS: FOLIC ACID 1 MG TABLET PO SCH (08:54)
[2022-03-26] MEDS: MULTIVITAMINS WITH MINERALS, THERAPEUTIC TABLET PO SCH (08:54)
[2022-03-26] MEDS: NICOTINE 21 MG/24 HOUR PATCH TD SCH (08:54)
[2022-03-26] MEDS: THIAMINE 100 MG TABLET PO SCH ×2 (08:54→16:14)
[2022-03-26] MEDS: NALTREXONE HCL 50 MG TABLET PO SCH (08:54)
[2022-03-26] MEDS ORDERED: PALIPERIDONE PALMITATE 156 MG/ML SYRINGE IM ONE (09:00)
[2022-03-26 16:20] VITALS: BP 106/65
[2022-03-26 16:39] VITALS: BP 113/73
[2022-03-26] MEDS: LORazepam 2 MG TABLET PO PRN (16:39)
[2022-03-26] MEDS: OLANZapine 5 MG RAPDIS TABLET PO PRN (17:53)
[2022-03-26] MEDS: MELATONIN 5 MG TABLET PO SCH (20:02)
[2022-03-26] MEDS: OLANZapine 10 MG RAPDIS TABLET PO SCH (20:02)
[2022-03-27 03:55] VITALS: BP_SYST 116; BP_DIAS 79; BP_DIAS 86
[2022-03-27 08:25] VITALS: BP 119/81
[2022-03-27] MEDS: SERTRALINE HCL 100 MG TABLET PO SCH (08:41)
[2022-03-27] MEDS: FOLIC ACID 1 MG TABLET PO SCH (08:41)
[2022-03-27] MEDS: MULTIVITAMINS WITH MINERALS, THERAPEUTIC TABLET PO SCH (08:41)
[2022-03-27] MEDS: NICOTINE 21 MG/24 HOUR PATCH TD SCH (08:41)
[2022-03-27] MEDS: THIAMINE 100 MG TABLET PO SCH ×2 (08:41→16:57)
[2022-03-27] MEDS: NALTREXONE HCL 50 MG TABLET PO SCH (08:41)
[2022-03-27] MEDS: OMEGA-3/DHA/EPA/FISH OIL 1,000 MG CAPSULE PO SCH (08:41)
[2022-03-27] MEDS: LORazepam 2 MG TABLET PO PRN (17:09)
[2022-03-27] MEDS: OLANZapine 5 MG RAPDIS TABLET PO PRN (17:14)
[2022-03-27 17:18] VITALS: BP 107/64
[2022-03-27] MEDS: MELATONIN 5 MG TABLET PO SCH (20:29)
[2022-03-27] MEDS: OLANZapine 10 MG RAPDIS TABLET PO SCH (20:29)
[2022-03-28 00:20] VITALS: BP 101/62
[2022-03-28 08:19] VITALS: BP 118/80
[2022-03-28] MEDS: NICOTINE 21 MG/24 HOUR PATCH TD SCH (08:38)
[2022-03-28] MEDS: THIAMINE 100 MG TABLET PO SCH ×2 (08:38→16:24)
[2022-03-28] MEDS: SERTRALINE HCL 100 MG TABLET PO SCH (08:38)
[2022-03-28] MEDS: MULTIVITAMINS WITH MINERALS, THERAPEUTIC TABLET PO SCH (08:38)
[2022-03-28] MEDS: FOLIC ACID 1 MG TABLET PO SCH (08:38)
[2022-03-28] MEDS: NALTREXONE HCL 50 MG TABLET PO SCH (08:38)
[2022-03-28] MEDS: OMEGA-3/DHA/EPA/FISH OIL 1,000 MG CAPSULE PO SCH (08:38)
[2022-03-28 16:11] VITALS: BP 101/67
[2022-03-28] MEDS: LORazepam 2 MG TABLET PO PRN (16:27)
[2022-03-28] MEDS: OLANZapine 10 MG RAPDIS TABLET PO SCH (20:28)
[2022-03-28] MEDS: MELATONIN 5 MG TABLET PO SCH (20:28)
[2022-03-29 00:20] VITALS: BP 101/67
[2022-03-29 08:32] VITALS: BP 125/56
[2022-03-29] MEDS: NALTREXONE HCL 50 MG TABLET PO SCH (08:56)
[2022-03-29] MEDS: OMEGA-3/DHA/EPA/FISH OIL 1,000 MG CAPSULE PO SCH (08:56)
[2022-03-29] MEDS: MULTIVITAMINS WITH MINERALS, THERAPEUTIC TABLET PO SCH (08:56)
[2022-03-29] MEDS: THIAMINE 100 MG TABLET PO SCH ×2 (08:56→16:49)
[2022-03-29] MEDS: SERTRALINE HCL 100 MG TABLET PO SCH (08:56)
[2022-03-29] MEDS: FOLIC ACID 1 MG TABLET PO SCH (08:56)
[2022-03-29] MEDS: NICOTINE 21 MG/24 HOUR PATCH TD SCH (08:59)
[2022-03-29] MEDS: LORazepam 2 MG TABLET PO PRN (15:44)
[2022-03-29 16:14] VITALS: BP 103/66
[2022-03-29] MEDS: MELATONIN 5 MG TABLET PO SCH (20:34)
[2022-03-29] MEDS: OLANZapine 5 MG RAPDIS TABLET PO SCH (20:35)
[2022-03-30 00:13] VITALS: BP 110/76
[2022-03-30 08:13] VITALS: BP 118/70
[2022-03-30] MEDS: THIAMINE 100 MG TABLET PO SCH ×2 (08:56→16:24)
[2022-03-30] MEDS: NICOTINE 21 MG/24 HOUR PATCH TD SCH (08:56)
[2022-03-30] MEDS: OMEGA-3/DHA/EPA/FISH OIL 1,000 MG CAPSULE PO SCH (08:56)
[2022-03-30] MEDS: NALTREXONE HCL 50 MG TABLET PO SCH (08:56)
[2022-03-30] MEDS: MULTIVITAMINS WITH MINERALS, THERAPEUTIC TABLET PO SCH (08:56)
[2022-03-30] MEDS: FOLIC ACID 1 MG TABLET PO SCH (08:56)
[2022-03-30] MEDS: SERTRALINE HCL 100 MG TABLET PO SCH (09:01)
[2022-03-30] MEDS: LORazepam 2 MG TABLET PO PRN (16:11)
[2022-03-30] MEDS ORDERED: ACETAMINOPHEN 325 MG TABLET PO PRN (16:15)
[2022-03-30] MEDS ORDERED: IBUPROFEN 600 MG TABLET PO PRN (16:15)
[2022-03-30 17:22] VITALS: BP 120/72
[2022-03-30] MEDS: MELATONIN 5 MG TABLET PO SCH (20:41)
[2022-03-30] MEDS: OLANZapine 5 MG RAPDIS TABLET PO SCH (20:41)
[2022-03-30] MEDS ORDERED: BISACODYL 5 MG EC TABLET PO PRN (20:45)
[2022-03-31 04:43] VITALS: BP 108/67
[2022-03-31 07:36] LABS: GLUCOMETER DEV NAME(LOC) POC.BV
[2022-03-31 08:17] VITALS: BP 109/64
[2022-03-31] MEDS: FOLIC ACID 1 MG TABLET PO SCH (09:09)
[2022-03-31] MEDS: MULTIVITAMINS WITH MINERALS, THERAPEUTIC TABLET PO SCH (09:09)
[2022-03-31] MEDS: THIAMINE 100 MG TABLET PO SCH ×2 (09:09→16:22)
[2022-03-31] MEDS: NALTREXONE HCL 50 MG TABLET PO SCH (09:10)
[2022-03-31] MEDS: SERTRALINE HCL 100 MG TABLET PO SCH (09:10)
[2022-03-31] MEDS: NICOTINE 21 MG/24 HOUR PATCH TD SCH (09:10)
[2022-03-31] MEDS: OMEGA-3/DHA/EPA/FISH OIL 1,000 MG CAPSULE PO SCH (09:10)
[2022-03-31] MEDS ORDERED: LORazepam 2 MG TABLET PO PRN (15:00)
[2022-03-31] MEDS: OLANZapine 5 MG RAPDIS TABLET PO PRN (16:22)
[2022-03-31 16:23] VITALS: BP 108/62
[2022-03-31] MEDS: MELATONIN 5 MG TABLET PO SCH (20:38)
[2022-03-31] MEDS ORDERED: OLANZapine 10 MG RAPDIS TABLET PO SCH (21:00)
[2022-04-01 00:44] VITALS: BP 108/52
[2022-04-01 08:23] VITALS: BP 117/68
[2022-04-01] MEDS: THIAMINE 100 MG TABLET PO SCH (08:30)
[2022-04-01] MEDS: MULTIVITAMINS WITH MINERALS, THERAPEUTIC TABLET PO SCH (08:30)
[2022-04-01] MEDS: SERTRALINE HCL 100 MG TABLET PO SCH (08:31)
[2022-04-01] MEDS: OMEGA-3/DHA/EPA/FISH OIL 1,000 MG CAPSULE PO SCH (08:31)
[2022-04-01] MEDS: NALTREXONE HCL 50 MG TABLET PO SCH (08:31)
[2022-04-01] MEDS: FOLIC ACID 1 MG TABLET PO SCH (08:31)
[2022-04-01] MEDS: NICOTINE 21 MG/24 HOUR PATCH TD SCH (08:31)
[2022-04-01] MEDS ORDERED: GABAPENTIN 300 MG CAPSULE PO PRN (14:30)
[2022-04-01] MEDS ORDERED: LORazepam 0.5 MG TABLET PO PRN (15:00)
[2022-04-01] MEDS: OLANZapine 5 MG RAPDIS TABLET PO PRN (15:46)
[2022-04-01 17:11] VITALS: BP 102/60
[2022-04-01] MEDS: MELATONIN 5 MG TABLET PO SCH (20:30)
[2022-04-01] MEDS ORDERED: OLANZapine 5 MG RAPDIS TABLET PO SCH (21:00)
[2022-04-01] MEDS ORDERED: BISMUTH SUBSALICYLATE 262 MG CHEWABLE TABLET CHEW PRN (22:15)
[2022-04-02 06:23] VITALS: BP 106/62
[2022-04-02 08:25] VITALS: BP 100/60
[2022-04-02] MEDS: NICOTINE 21 MG/24 HOUR PATCH TD SCH (09:03)
[2022-04-02] MEDS: NALTREXONE HCL 50 MG TABLET PO SCH (09:04)
[2022-04-02] MEDS: OMEGA-3/DHA/EPA/FISH OIL 1,000 MG CAPSULE PO SCH (09:04)
[2022-04-02] MEDS: SERTRALINE HCL 100 MG TABLET PO SCH (09:04)
[2022-04-02] MEDS: MULTIVITAMINS WITH MINERALS, THERAPEUTIC TABLET PO SCH (09:04)
[2022-04-02] MEDS ORDERED: OLAN5TAB94 PO ×3 (14:29→16:44)
[2022-04-02] MEDS ORDERED: MELA5TAB40 PO (14:29)
[2022-04-02] MEDS ORDERED: NALT50TA PO (14:29)
[2022-04-02] MEDS ORDERED: SERT-440 PO (14:29)
[2022-04-02] MEDS ORDERED: OMEG-108 PO (14:29)
[2022-04-02 16:07] VITALS: BP 136/62
[2022-04-02] MEDS ORDERED: SERT-162 PO (16:45)
[2022-04-02] MEDS ORDERED: NALT50TA6 PO (16:46)
== END 2022-04-02 17:45 | disposition home or self-care (01) | DRG 885 ==
LOC: EMS 05:22 → B2X 03-22 07:53 → B2S 03-31 12:49 → B2X 04-01 09:50
PROVIDERS: ADMIT Psychiatry & Neurology Psychiatry; ATTEND Psychiatry & Neurology Psychiatry
DX: F25.0 Schizoaffective disorder, bipolar type (principal); R45.851 Suicidal ideations; F15.90 Other stimulant use, unspecified, uncomplicated; F17.200 Nicotine dependence, unspecified, uncomplicated; F41.9 Anxiety disorder, unspecified; F19.10 Other psychoactive substance abuse, uncomplicated; F60.0 Paranoid personality disorder; G47.00 Insomnia, unspecified; J30.9 Allergic rhinitis, unspecified; J44.9 Chronic obstructive pulmonary disease, unspecified; Z20.822 Contact with and (suspected) exposure to COVID-19; K59.00 Constipation, unspecified; Z55.9 Problems related to education and literacy, unspecified; Z88.0 Allergy status to penicillin; Z88.8 Allergy status to other drugs, medicaments and biological substances; Z59.00 Homelessness unspecified; Z63.9 Problem related to primary support group, unspecified; Z65.3 Problems related to other legal circumstances; Z91.14 Patient's other noncompliance with medication regimen
CPT/HCPCS: 80053; 80061; 81003; 83036; 84439; 84443; 85025; 86592; 99285; G0480; Q9967

== ENCOUNTER 2022-05-03 17:33 | Inpatient (IN) | payer MEDICARE, MEDICAID ==
[~2022-05-03] VITALS: Ht 177.8 cm; Wt 103.0 kg
[~2022-05-03 17:33] MED LIST changes: +MELA5TAB40 PO; +NALT50TA PO; +NALT50TA6 PO; -OLAN10 PO; -OLAN10TA74 PO; +OLAN5TAB94 PO; +OMEG-108 PO; +SERT-162 PO; -TERB30CR8 TP
[2022-05-03 20:45] LABS: BASOPHILS % (AUTO) 0.5 % (0.0-2.0); EOSINOPHILS % (AUTO) 3.8 % (1.0-6.0); HEMATOCRIT 40.6 % (41-53); LYMPHOCYTES # (AUTO) 2.5 K/uL (1.0-4.8); LYMPHOCYTES % (AUTO) 37.8 % (22.0-44.0); MEAN CORPUSCULAR HEMOGLOBIN 27.9 pg (26.0-34.0); MEAN CORPUSCULAR HGB CONC 34.4 G/dL (31.0-37.0); MEAN CORPUSCULAR VOLUME 81 fL (80-100); MONOCYTES # (AUTO) 0.5 K/uL (0.1-1.0); MONOCYTES % (AUTO) 7.3 % (2.0-9.0); NEUTROPHILS # (AUTO) 3.3 K/uL (1.8-7.7); NEUTROPHILS % (AUTO) 50.6 % (40.0-70.0); PLATELET COUNT (AUTO) 363 K/uL (150-450); RED BLOOD CELL COUNT(AUTO) 5.01 MIL/uL (4.50-5.90); RED CELL DISTRIBUTION WIDTH 13.8 % (11.5-14.5)
[2022-05-03 20:55] LABS: ANION GAP 5 mmol/L (8-16); CALCIUM, TOTAL 8.7 mg/dL (8.8-10.5); CARBON DIOXIDE 30 mmol/L (22-29); CHLORIDE 103 mmol/L (98-107); CREATININE 0.77 mg/dL (0.60-1.30); GLUCOSE,RANDOM 104 mg/dL (70-110); POTASSIUM 3.6 mmol/L (3.5-5.1); SODIUM SERUM 138 mmol/L (136-145); UREA NITROGEN, BLOOD 14 mg/dL (7-18)
[2022-05-03 21:01] LABS: ALANINE AMINOTRANSFERASE 28 U/L (12-78); ALBUMIN 3.3 g/dL (3.4-5.0); ALKALINE PHOSPHATASE 72 U/L (46-116); ASPARTATE AMINOTRANSFERASE 17 U/L (15-37); BILIRUBIN,TOTAL 1.2 mg/dL (0.1-1.0); TOTAL PROTEIN, SERUM 6.4 g/dL (6.4-8.2)
[2022-05-03 21:02] LABS: GLOMERULAR FILTR. RATE CALC > 60 mL/min (>60)
[2022-05-03 21:58] LABS: COVID AG,FIA SOURCE NASAL SWAB
[2022-05-04 10:37] VITALS: BP 102/71
[2022-05-04 21:42] VITALS: BP 103/70
[2022-05-04] MEDS: ZOLPIDEM TARTRATE 10 MG TABLET PO PRN (22:27)
[2022-05-05] MEDS ORDERED: MAGNESIUM HYDROXIDE SUSPENSION 30 ML UDCUP PO PRN (07:00)
[2022-05-05] MEDS ORDERED: DOCUSATE SODIUM 100 MG CAPSULE PO PRN (07:00)
[2022-05-05] MEDS ORDERED: IBUPROFEN 400 MG TABLET PO PRN (07:00)
[2022-05-05] MEDS ORDERED: ALBUTEROL SULFATE HFA 90 MCG/PUFF 8 GM INHALER IH PRN (07:00)
[2022-05-05] MEDS ORDERED: MAG HYDROX/AL HYDROX/SIMETH ES 30 ML SUSPENSION UDCUP PO PRN (07:00)
[2022-05-05] MEDS ORDERED: PETROLATUM,WHITE 28 GM JELLY TP PRN (07:00)
[2022-05-05] MEDS ORDERED: LOPERAMIDE HCL 2 MG CAPSULE PO PRN (07:00)
[2022-05-05] MEDS ORDERED: GuaiFENesin/D-METHORPHAN [SUGAR-FREE] 200-20MG/10 ML SYRUP UDCUP PO PRN (07:00)
[2022-05-05] MEDS ORDERED: ONDANSETRON HCL 4 MG TABLET PO PRN (07:00)
[2022-05-05] MEDS ORDERED: CloNIDine HCL 0.1 MG TABLET PO PRN (07:00)
[2022-05-05 08:34] VITALS: BP 114/68
[2022-05-05] MEDS: OMEGA-3/DHA/EPA/FISH OIL 1,000 MG CAPSULE PO SCH (08:56)
[2022-05-05] MEDS: NALTREXONE HCL 50 MG TABLET PO SCH (13:08)
[2022-05-05] MEDS: NICOTINE 14 MG/24 HOUR PATCH TD PRN (16:23)
[2022-05-05 17:40] VITALS: BP 129/89
[2022-05-05] MEDS: LORazepam 2 MG TABLET PO PRN (17:40)
[2022-05-05] MEDS: MELATONIN 5 MG TABLET PO SCH (21:21)
[2022-05-05] MEDS: OLANZapine 7.5 MG TABLET PO SCH (21:21)
[2022-05-06 08:32] VITALS: BP 112/65
[2022-05-06] MEDS: NALTREXONE HCL 50 MG TABLET PO SCH (08:55)
[2022-05-06] MEDS: OMEGA-3/DHA/EPA/FISH OIL 1,000 MG CAPSULE PO SCH (08:55)
[2022-05-06] MEDS: OLANZapine 7.5 MG TABLET PO SCH (20:22)
[2022-05-06] MEDS: MELATONIN 5 MG TABLET PO SCH (20:22)
[2022-05-06] MEDS: NICOTINE 14 MG/24 HOUR PATCH TD PRN (20:30)
[2022-05-07 08:58] VITALS: BP 100/62
[2022-05-07] MEDS: OMEGA-3/DHA/EPA/FISH OIL 1,000 MG CAPSULE PO SCH (09:48)
[2022-05-07] MEDS: NALTREXONE HCL 50 MG TABLET PO SCH (09:49)
[2022-05-07 16:30] VITALS: BP 126/79
[2022-05-07] MEDS: LORazepam 2 MG TABLET PO PRN (18:06)
[2022-05-07] MEDS: HALOPERIDOL 5 MG TABLET PO PRN (18:06)
[2022-05-07] MEDS: MELATONIN 5 MG TABLET PO SCH (20:01)
[2022-05-07] MEDS: OLANZapine 7.5 MG TABLET PO SCH (20:01)
[2022-05-07] MEDS: NICOTINE 14 MG/24 HOUR PATCH TD PRN (20:30)
[2022-05-07] MEDS: ZOLPIDEM TARTRATE 10 MG TABLET PO PRN (21:00)
[2022-05-08] MEDS: OMEGA-3/DHA/EPA/FISH OIL 1,000 MG CAPSULE PO SCH (08:44)
[2022-05-08] MEDS: NALTREXONE HCL 50 MG TABLET PO SCH (08:44)
[2022-05-08] MEDS: NICOTINE 14 MG/24 HOUR PATCH TD PRN (15:23)
[2022-05-08] MEDS: LORazepam 2 MG TABLET PO PRN (15:48)
[2022-05-08 16:40] VITALS: BP 111/68
[2022-05-08] MEDS: MELATONIN 5 MG TABLET PO SCH (20:56)
[2022-05-08] MEDS: OLANZapine 7.5 MG TABLET PO SCH (20:57)
[2022-05-09 06:09] LABS: COVID AG,FIA SOURCE NASAL SWAB
[2022-05-09] MEDS: NALTREXONE HCL 50 MG TABLET PO SCH (08:52)
[2022-05-09] MEDS: OMEGA-3/DHA/EPA/FISH OIL 1,000 MG CAPSULE PO SCH (08:52)
[2022-05-09 08:58] VITALS: BP 100/60
[2022-05-09] MEDS: LORazepam 2 MG TABLET PO PRN ×2 (11:56→20:09)
[2022-05-09] MEDS: NICOTINE 14 MG/24 HOUR PATCH TD PRN (12:06)
[2022-05-09] MEDS: HALOPERIDOL 5 MG TABLET PO PRN (16:58)
[2022-05-09 18:16] VITALS: BP 121/78
[2022-05-09] MEDS: MELATONIN 5 MG TABLET PO SCH (20:08)
[2022-05-09] MEDS: OLANZapine 7.5 MG TABLET PO SCH (20:08)
[2022-05-09 20:09] VITALS: BP 124/74
[2022-05-10] MEDS: NALTREXONE HCL 50 MG TABLET PO SCH (09:22)
[2022-05-10] MEDS: OMEGA-3/DHA/EPA/FISH OIL 1,000 MG CAPSULE PO SCH (09:22)
[2022-05-10 09:55] VITALS: BP 108/63
[2022-05-10 16:08] VITALS: BP 87/36
[2022-05-10] MEDS: LORazepam 2 MG TABLET PO PRN (16:21)
[2022-05-10] MEDS: NICOTINE 14 MG/24 HOUR PATCH TD PRN (16:22)
[2022-05-10] MEDS: HALOPERIDOL 5 MG TABLET PO PRN (18:27)
[2022-05-10] MEDS: MELATONIN 5 MG TABLET PO SCH (20:04)
[2022-05-10] MEDS: OLANZapine 10 MG TABLET PO SCH (20:04)
[2022-05-11 09:00] VITALS: BP 116/65
[2022-05-11] MEDS: OMEGA-3/DHA/EPA/FISH OIL 1,000 MG CAPSULE PO SCH (09:01)
[2022-05-11] MEDS: NALTREXONE HCL 50 MG TABLET PO SCH (09:01)
[2022-05-11] MEDS: LORazepam 2 MG TABLET PO PRN ×2 (12:02→17:12)
[2022-05-11] MEDS: NICOTINE 14 MG/24 HOUR PATCH TD PRN (12:03)
[2022-05-11] MEDS: HALOPERIDOL 5 MG TABLET PO PRN (17:12)
[2022-05-11 17:13] VITALS: BP 109/69
[2022-05-11] MEDS: ACETAMINOPHEN 325 MG TABLET PO PRN (17:13)
[2022-05-11 18:22] LABS: APPEARANCE,URINE CLEAR (CLEAR); BILIRUBIN,URINE NEGATIVE (NEGATIVE); GLUCOSE, URINE (UA) NEGATIVE (NEGATIVE); KETONES,URINE NEGATIVE (NEGATIVE); LEUKOCYTE ESTERASE ,URINE NEGATIVE (NEGATIVE); NITRATE,URINE NEGATIVE (NEGATIVE); OCCULT BLOOD,URINE NEGATIVE (NEGATIVE); PROTEIN,URINE NEGATIVE (NEGATIVE); SPECIFIC GRAVITIY, URINE 1.011 (1.003-1.030); UROBILINOGEN,URINE <=1.0 mg/dL (<=1.0)
[2022-05-11 18:29] LABS: AMPHET/METH SCREEN,URINE POSITIVE (NEGATIVE); BARBITURATE SCREEN, URINE NEGATIVE (NEGATIVE); BENZODIAZEPINES SCREEN,URINE NEGATIVE (NEGATIVE); CANNABINOID SCREEN,URINE NEGATIVE (NEGATIVE); COCAINE SCREEN,URINE NEGATIVE (NEGATIVE); METHADONE SCREEN, URINE NEGATIVE (NEGATIVE); OPIATE SCREEN,URINE NEGATIVE (NEGATIVE)
[2022-05-11 18:36] LABS: PHENCYCLIDINE SCREEN,URINE NEGATIVE (NEGATIVE)
[2022-05-11] MEDS: MELATONIN 5 MG TABLET PO SCH (20:00)
[2022-05-11] MEDS: OLANZapine 10 MG TABLET PO SCH (20:00)
[2022-05-12 08:30] VITALS: BP 113/64
[2022-05-12] MEDS: OMEGA-3/DHA/EPA/FISH OIL 1,000 MG CAPSULE PO SCH (09:25)
[2022-05-12] MEDS: NALTREXONE HCL 50 MG TABLET PO SCH (09:25)
[2022-05-12] MEDS: LORazepam 2 MG TABLET PO PRN ×2 (14:25→18:29)
[2022-05-12] MEDS: NICOTINE 14 MG/24 HOUR PATCH TD PRN (14:29)
[2022-05-12 16:06] VITALS: BP 106/62
[2022-05-12] MEDS: HALOPERIDOL 5 MG TABLET PO PRN (18:29)
[2022-05-12] MEDS: MELATONIN 5 MG TABLET PO SCH (20:01)
[2022-05-12] MEDS: OLANZapine 10 MG TABLET PO SCH (20:01)
[2022-05-13 08:30] VITALS: BP 105/64
[2022-05-13] MEDS: NALTREXONE HCL 50 MG TABLET PO SCH (09:06)
[2022-05-13] MEDS: OMEGA-3/DHA/EPA/FISH OIL 1,000 MG CAPSULE PO SCH (09:06)
[2022-05-13] MEDS: NICOTINE 14 MG/24 HOUR PATCH TD PRN (13:21)
[2022-05-13] MEDS: HALOPERIDOL 5 MG TABLET PO PRN (13:21)
[2022-05-13] MEDS: LORazepam 2 MG TABLET PO PRN ×2 (13:21→20:51)
[2022-05-13 16:00] VITALS: BP 126/76
[2022-05-13 20:48] VITALS: BP 120/76
[2022-05-13] MEDS: MELATONIN 5 MG TABLET PO SCH (20:51)
[2022-05-13] MEDS: OLANZapine 10 MG TABLET PO SCH (20:51)
[2022-05-14 08:00] VITALS: BP 103/61
[2022-05-14] MEDS: OMEGA-3/DHA/EPA/FISH OIL 1,000 MG CAPSULE PO SCH (09:14)
[2022-05-14] MEDS: NALTREXONE HCL 50 MG TABLET PO SCH (09:14)
[2022-05-14] MEDS: NICOTINE 14 MG/24 HOUR PATCH TD PRN (14:38)
[2022-05-14] MEDS: LORazepam 2 MG TABLET PO PRN (14:40)
[2022-05-14] MEDS: HALOPERIDOL 5 MG TABLET PO PRN (14:40)
[2022-05-14 16:00] VITALS: BP 111/70
[2022-05-14] MEDS: MELATONIN 5 MG TABLET PO SCH (20:06)
[2022-05-14] MEDS: OLANZapine 10 MG TABLET PO SCH (20:06)
[2022-05-15 08:00] VITALS: BP 114/62
[2022-05-15] MEDS: NALTREXONE HCL 50 MG TABLET PO SCH (09:15)
[2022-05-15] MEDS: OMEGA-3/DHA/EPA/FISH OIL 1,000 MG CAPSULE PO SCH (09:15)
[2022-05-15 11:20] VITALS: BP 125/68
[2022-05-15] MEDS: HALOPERIDOL 5 MG TABLET PO PRN ×2 (11:20→17:56)
[2022-05-15] MEDS: LORazepam 2 MG TABLET PO PRN ×2 (11:20→17:56)
[2022-05-15] MEDS: NICOTINE 14 MG/24 HOUR PATCH TD PRN (14:41)
[2022-05-15 16:00] VITALS: BP 112/68
[2022-05-15 20:25] VITALS: BP 114/77
[2022-05-15] MEDS: MELATONIN 5 MG TABLET PO SCH (21:14)
[2022-05-15] MEDS: OLANZapine 10 MG TABLET PO SCH (21:15)
[2022-05-16 07:44] LABS: COVID AG,FIA SOURCE NASAL SWAB
[2022-05-16 08:10] VITALS: BP 107/65
[2022-05-16] MEDS: NALTREXONE HCL 50 MG TABLET PO SCH (09:48)
[2022-05-16] MEDS: OMEGA-3/DHA/EPA/FISH OIL 1,000 MG CAPSULE PO SCH (09:48)
[2022-05-16] MEDS: LORazepam 2 MG TABLET PO PRN ×2 (14:08→18:49)
[2022-05-16] MEDS: HALOPERIDOL 5 MG TABLET PO PRN ×2 (14:08→18:50)
[2022-05-16] MEDS: NICOTINE 14 MG/24 HOUR PATCH TD PRN (14:21)
[2022-05-16 16:00] VITALS: BP 100/67
[2022-05-16] MEDS: ACETAMINOPHEN 325 MG TABLET PO PRN (16:25)
[2022-05-16 17:25] VITALS: BP 106/68
[2022-05-16] MEDS: MELATONIN 5 MG TABLET PO SCH (20:02)
[2022-05-16] MEDS: OLANZapine 10 MG TABLET PO SCH (20:02)
[2022-05-17 08:32] VITALS: BP 98/57
[2022-05-17] MEDS: OMEGA-3/DHA/EPA/FISH OIL 1,000 MG CAPSULE PO SCH (08:37)
[2022-05-17] MEDS: NALTREXONE HCL 50 MG TABLET PO SCH (08:37)
[2022-05-17] MEDS: LORazepam 2 MG TABLET PO PRN (11:11)
[2022-05-17] MEDS: HALOPERIDOL 5 MG TABLET PO PRN (11:11)
[2022-05-17 16:15] VITALS: BP 106/68
[2022-05-17] MEDS: NICOTINE 14 MG/24 HOUR PATCH TD PRN (17:51)
[2022-05-17] MEDS: OLANZapine 10 MG TABLET PO SCH (20:03)
[2022-05-17] MEDS: MELATONIN 5 MG TABLET PO SCH (20:03)
[2022-05-17] MEDS: ZOLPIDEM TARTRATE 10 MG TABLET PO PRN (20:15)
[2022-05-18 08:00] VITALS: BP 109/64
[2022-05-18] MEDS: NALTREXONE HCL 50 MG TABLET PO SCH (08:53)
[2022-05-18] MEDS: OMEGA-3/DHA/EPA/FISH OIL 1,000 MG CAPSULE PO SCH (08:53)
[2022-05-18] MEDS: LORazepam 2 MG TABLET PO PRN ×2 (10:54→18:07)
[2022-05-18] MEDS: HALOPERIDOL 5 MG TABLET PO PRN ×2 (10:55→18:07)
[2022-05-18] MEDS: NICOTINE 14 MG/24 HOUR PATCH TD PRN (10:55)
[2022-05-18 16:32] VITALS: BP 102/65
[2022-05-18] MEDS: OLANZapine 10 MG TABLET PO SCH (20:21)
[2022-05-18] MEDS: ZOLPIDEM TARTRATE 10 MG TABLET PO PRN (20:21)
[2022-05-18] MEDS: MELATONIN 5 MG TABLET PO SCH (20:22)
[2022-05-19 09:00] VITALS: BP 85/52
[2022-05-19] MEDS: NALTREXONE HCL 50 MG TABLET PO SCH (09:16)
[2022-05-19] MEDS: OMEGA-3/DHA/EPA/FISH OIL 1,000 MG CAPSULE PO SCH (09:16)
[2022-05-19] MEDS: NICOTINE 14 MG/24 HOUR PATCH TD PRN (14:22)
[2022-05-19] MEDS: LORazepam 2 MG TABLET PO PRN ×2 (14:22→18:51)
[2022-05-19] MEDS: HALOPERIDOL 5 MG TABLET PO PRN ×2 (14:22→18:51)
[2022-05-19 16:43] VITALS: BP 113/77
[2022-05-19] MEDS: MELATONIN 5 MG TABLET PO SCH (20:24)
[2022-05-19] MEDS: ZOLPIDEM TARTRATE 10 MG TABLET PO PRN (20:24)
[2022-05-19] MEDS: OLANZapine 10 MG TABLET PO SCH (20:24)
[2022-05-20] MEDS: NALTREXONE HCL 50 MG TABLET PO SCH (08:41)
[2022-05-20] MEDS: OMEGA-3/DHA/EPA/FISH OIL 1,000 MG CAPSULE PO SCH (08:41)
[2022-05-20 09:00] VITALS: BP 99/76
[2022-05-20] MEDS: LORazepam 2 MG TABLET PO PRN (10:37)
[2022-05-20] MEDS ORDERED: MELA5TAB40 PO (10:56)
[2022-05-20] MEDS ORDERED: OLAN10 PO (10:56)
[2022-05-20] MEDS ORDERED: NALT50TA PO (10:56)
[2022-05-20] MEDS ORDERED: OMEG-108 PO (10:56)
== END 2022-05-20 14:20 | disposition home or self-care (01) | DRG 885 ==
LOC: EMS 17:33 → 3EX 05-04 06:01
PROVIDERS: ADMIT Psychiatry & Neurology Child & Adolescent Psychiatry; ATTEND Psychiatry & Neurology Child & Adolescent Psychiatry
DX: F25.0 Schizoaffective disorder, bipolar type (principal); B18.2 Chronic viral hepatitis C; R45.851 Suicidal ideations; Z20.822 Contact with and (suspected) exposure to COVID-19; F42.9 Obsessive-compulsive disorder, unspecified; D64.9 Anemia, unspecified; J44.9 Chronic obstructive pulmonary disease, unspecified; F41.9 Anxiety disorder, unspecified; Z59.00 Homelessness unspecified; Z88.0 Allergy status to penicillin; Z88.8 Allergy status to other drugs, medicaments and biological substances
CPT/HCPCS: 80053; 81003; 85025; 99285; G0378; G0480; Q9967

== ENCOUNTER 2022-07-20 16:58 | Emergency (ER) | payer MEDICARE, OTHER ==
[~2022-07-20] VITALS: Ht 180.3 cm; Wt 100.0 kg
[~2022-07-20 16:58] MED LIST changes: -NALT50TA6 PO; +OLAN10 PO; -OLAN5TAB94 PO; -OMEG-108 PO; +OMEG-135 PO; -SERT-162 PO; -SERT-440 PO
[2022-07-20 17:34] LABS: BASOPHILS % (AUTO) 0.7 % (0.0-2.0); EOSINOPHILS % (AUTO) 2.6 % (1.0-6.0); HEMATOCRIT 42.8 % (41-53); HEMOGLOBIN 14.2 g/dL (13.5-17.5); LYMPHOCYTES # (AUTO) 2.4 K/uL (1.0-4.8); LYMPHOCYTES % (AUTO) 38.4 % (22.0-44.0); MEAN CORPUSCULAR HEMOGLOBIN 27.8 pg (26.0-34.0); MEAN CORPUSCULAR HGB CONC 33.1 G/dL (31.0-37.0); MEAN CORPUSCULAR VOLUME 84 fL (80-100); MONOCYTES # (AUTO) 0.3 K/uL (0.1-1.0); MONOCYTES % (AUTO) 4.9 % (2.0-9.0); NEUTROPHILS # (AUTO) 3.3 K/uL (1.8-7.7); NEUTROPHILS % (AUTO) 53.4 % (40.0-70.0); PLATELET COUNT (AUTO) 326 K/uL (150-450)
[2022-07-20 17:43] LABS: ANION GAP 7 mmol/L (8-16); CARBON DIOXIDE 27 mmol/L (22-29); CHLORIDE 102 mmol/L (98-107); CREATININE 1.11 mg/dL (0.60-1.30); GLOMERULAR FILTR. RATE CALC > 60 mL/min (>60); GLUCOSE,RANDOM 216 mg/dL (70-110); POTASSIUM 3.2 mmol/L (3.5-5.1); SODIUM SERUM 136 mmol/L (136-145); UREA NITROGEN, BLOOD 15 mg/dL (7-18)
[2022-07-20 17:44] VITALS: BP 110/72
[2022-07-20 17:48] LABS: ALANINE AMINOTRANSFERASE 21 U/L (12-78); ALBUMIN 3.8 g/dL (3.4-5.0); ALKALINE PHOSPHATASE 68 U/L (46-116); ASPARTATE AMINOTRANSFERASE 19 U/L (15-37); BILIRUBIN,TOTAL 2.4 mg/dL (0.1-1.0); TOTAL PROTEIN, SERUM 6.7 g/dL (6.4-8.2)
== END 2022-07-20 17:54 | disposition left against medical advice (07) ==
LOC: EMS 16:58
DX: F15.10 Other stimulant abuse, uncomplicated (principal); F32.A Depression, unspecified; F20.9 Schizophrenia, unspecified; F42.9 Obsessive-compulsive disorder, unspecified; F12.90 Cannabis use, unspecified, uncomplicated; Z88.0 Allergy status to penicillin; Z91.09 Other allergy status, other than to drugs and biological substances
CPT/HCPCS: 99283; 80053; 85025; 36415; G0480

== ENCOUNTER 2022-08-03 14:32 | Inpatient (IN) | payer MEDICARE, MEDICAID ==
[~2022-08-03] VITALS: Ht 180.3 cm; Wt 103.0 kg
[2022-08-03] MEDS ORDERED: MAGNESIUM HYDROXIDE SUSPENSION 30 ML UDCUP PO PRN (15:30)
[2022-08-03] MEDS ORDERED: GuaiFENesin/D-METHORPHAN [SUGAR-FREE] 200-20MG/10 ML SYRUP UDCUP PO PRN (15:30)
[2022-08-03] MEDS ORDERED: OLANZapine 5 MG RAPDIS TABLET PO PRN (15:30)
[2022-08-03] MEDS ORDERED: MAG HYDROX/AL HYDROX/SIMETH ES 30 ML SUSPENSION UDCUP PO PRN (15:30)
[2022-08-03] MEDS ORDERED: LOPERAMIDE HCL 2 MG CAPSULE PO PRN (15:30)
[2022-08-03] MEDS ORDERED: HydrOXYzine PAMOATE 50 MG CAPSULE PO PRN (15:30)
[2022-08-03] MEDS ORDERED: PROMETHAZINE HCL 25 MG TABLET PO PRN (15:30)
[2022-08-03] MEDS ORDERED: TUBERCULIN, PURIFIED PROTEIN DERIVATIVE 5 TU/0.1 ML SYRINGE ID ONE (15:30)
[2022-08-03] MEDS ORDERED: ACETAMINOPHEN 325 MG TABLET PO PRN (15:30)
[2022-08-03] MEDS ORDERED: INFLUENZA VIRUS VACCINE QVS 2022-23 (6MO+)/PF 60 MCG/0.5 ML SYRINGE IM. ONE (19:30)
[2022-08-03] MEDS ORDERED: PNEUMOCOCCAL VACCINE POLYVALENT 0.5 ML VIAL [PPSV23] IM. ONE (19:30)
[2022-08-03] MEDS: LORazepam 2 MG TABLET PO PRN (20:24)
[2022-08-03 20:46] VITALS: BP 116/66
[2022-08-03 20:47] VITALS: BP 116/66
[2022-08-03] MEDS: THIAMINE 100 MG TABLET PO SCH (21:36)
[2022-08-03] MEDS: OLANZapine 5 MG RAPDIS TABLET PO SCH (21:37)
[2022-08-03] MEDS: MELATONIN 5 MG TABLET PO SCH (21:37)
[2022-08-04] MEDS: OMEGA-3/DHA/EPA/FISH OIL 1,000 MG CAPSULE PO SCH (08:24)
[2022-08-04] MEDS: MULTIVITAMINS WITH MINERALS, THERAPEUTIC TABLET PO SCH (08:24)
[2022-08-04] MEDS: LORazepam 2 MG TABLET PO PRN (08:24)
[2022-08-04] MEDS: FOLIC ACID 1 MG TABLET PO SCH (08:24)
[2022-08-04] MEDS: BuPROPion HCL XL 150 MG ER TABLET PO SCH (08:24)
[2022-08-04] MEDS: NALTREXONE HCL 50 MG TABLET PO SCH (08:24)
[2022-08-04] MEDS: THIAMINE 100 MG TABLET PO SCH ×2 (08:24→16:25)
[2022-08-04] MEDS: DEXTROMETHORPHAN HBR/QUINIDINE 20/10 MG CAPSULE PO SCH (08:24)
[2022-08-04 12:54] VITALS: BP 111/47
[2022-08-04] MEDS ORDERED: PALIPERIDONE PALMITATE 234 MG/1.5 ML SYRINGE IM ONE (15:00)
[2022-08-04] MEDS: MELATONIN 5 MG TABLET PO SCH (20:00)
[2022-08-04] MEDS: OLANZapine 5 MG RAPDIS TABLET PO SCH (20:00)
[2022-08-04 20:54] VITALS: BP 103/67
[2022-08-05 07:22] LABS: BASOPHILS % (AUTO) 0.8 % (0.0-2.0); EOSINOPHILS % (AUTO) 1.9 % (1.0-6.0); HEMATOCRIT 43.5 % (41-53); HEMOGLOBIN 14.7 g/dL (13.5-17.5); LYMPHOCYTES % (AUTO) 28.1 % (22.0-44.0); MEAN CORPUSCULAR HEMOGLOBIN 27.9 pg (26.0-34.0); MEAN CORPUSCULAR HGB CONC 33.8 G/dL (31.0-37.0); MEAN CORPUSCULAR VOLUME 83 fL (80-100); MONOCYTES # (AUTO) 0.8 K/uL (0.1-1.0); MONOCYTES % (AUTO) 10.5 % (2.0-9.0); NEUTROPHILS # (AUTO) 4.2 K/uL (1.8-7.7); NEUTROPHILS % (AUTO) 58.7 % (40.0-70.0); PLATELET COUNT (AUTO) 431 K/uL (150-450); RED BLOOD CELL COUNT(AUTO) 5.27 MIL/uL (4.50-5.90)
[2022-08-05 07:33] LABS: HEMOGLOBIN A1C 4.9 % (3.8-5.6)
[2022-08-05 07:49] LABS: ALANINE AMINOTRANSFERASE 30 U/L (12-78); ALBUMIN 3.5 g/dL (3.4-5.0); ALKALINE PHOSPHATASE 70 U/L (46-116); ANION GAP 5 mmol/L (8-16); ASPARTATE AMINOTRANSFERASE 15 U/L (15-37); CARBON DIOXIDE 30 mmol/L (22-29); CHLORIDE 103 mmol/L (98-107); CHOL/HDL RATIO 3.5 (4.2-7.3); CHOLESTEROL 162 mg/dL (131-200); CREATININE 0.83 mg/dL (0.60-1.30); FREE T4 (FREE THYROXINE) 1.04 ng/dL (0.76-1.46); GLUCOSE,RANDOM 88 mg/dL (70-110); HDL CHOLESTEROL 46 mg/dL (40-60); LDL CHOL (CALC.) 95 mg/dL (0-130); SODIUM SERUM 138 mmol/L (136-145); THYROID STIMULATING HORMONE 1.72 uIU/mL (0.36-3.74); TOTAL PROTEIN, SERUM 6.8 g/dL (6.4-8.2); TRIGLYCERIDES 105 mg/dL (15-150); UREA NITROGEN, BLOOD 13 mg/dL (7-18)
[2022-08-05 07:50] LABS: GLOMERULAR FILTR. RATE CALC > 60 mL/min (>60)
[2022-08-05] MEDS: NALTREXONE HCL 50 MG TABLET PO SCH (10:00)
[2022-08-05] MEDS: DEXTROMETHORPHAN HBR/QUINIDINE 20/10 MG CAPSULE PO SCH (10:00)
[2022-08-05] MEDS: THIAMINE 100 MG TABLET PO SCH ×2 (10:00→16:39)
[2022-08-05] MEDS: MULTIVITAMINS WITH MINERALS, THERAPEUTIC TABLET PO SCH (10:00)
[2022-08-05] MEDS: FOLIC ACID 1 MG TABLET PO SCH (10:00)
[2022-08-05] MEDS: OMEGA-3/DHA/EPA/FISH OIL 1,000 MG CAPSULE PO SCH (10:00)
[2022-08-05] MEDS: BuPROPion HCL XL 150 MG ER TABLET PO SCH (10:04)
[2022-08-05 10:13] VITALS: BP 100/66
[2022-08-05] MEDS: LORazepam 2 MG TABLET PO PRN (16:38)
[2022-08-05 20:00] VITALS: BP 126/84
[2022-08-05] MEDS: OLANZapine 5 MG RAPDIS TABLET PO SCH (20:32)
[2022-08-05] MEDS: MELATONIN 5 MG TABLET PO SCH (20:32)
[2022-08-06 08:05] VITALS: BP 118/66
[2022-08-06] MEDS: OMEGA-3/DHA/EPA/FISH OIL 1,000 MG CAPSULE PO SCH (08:53)
[2022-08-06] MEDS: NALTREXONE HCL 50 MG TABLET PO SCH (08:53)
[2022-08-06] MEDS: DEXTROMETHORPHAN HBR/QUINIDINE 20/10 MG CAPSULE PO SCH (08:54)
[2022-08-06] MEDS: FOLIC ACID 1 MG TABLET PO SCH (08:54)
[2022-08-06] MEDS: MULTIVITAMINS WITH MINERALS, THERAPEUTIC TABLET PO SCH (08:54)
[2022-08-06] MEDS: THIAMINE 100 MG TABLET PO SCH ×2 (08:54→17:00)
[2022-08-06] MEDS: BuPROPion HCL XL 150 MG ER TABLET PO SCH (08:54)
[2022-08-06 20:00] VITALS: BP 116/64
[2022-08-06] MEDS: OLANZapine 5 MG RAPDIS TABLET PO SCH (20:20)
[2022-08-06] MEDS: MELATONIN 5 MG TABLET PO SCH (20:20)
[2022-08-07 08:30] VITALS: BP 117/66
[2022-08-07] MEDS: BuPROPion HCL XL 150 MG ER TABLET PO SCH (08:43)
[2022-08-07] MEDS: MULTIVITAMINS WITH MINERALS, THERAPEUTIC TABLET PO SCH (08:43)
[2022-08-07] MEDS: DEXTROMETHORPHAN HBR/QUINIDINE 20/10 MG CAPSULE PO SCH (08:43)
[2022-08-07] MEDS: FOLIC ACID 1 MG TABLET PO SCH (08:43)
[2022-08-07] MEDS: THIAMINE 100 MG TABLET PO SCH ×2 (08:43→17:00)
[2022-08-07] MEDS: OMEGA-3/DHA/EPA/FISH OIL 1,000 MG CAPSULE PO SCH (08:43)
[2022-08-07] MEDS: NALTREXONE HCL 50 MG TABLET PO SCH (08:43)
[2022-08-07 15:54] VITALS: BP 123/78
[2022-08-07] MEDS: LORazepam 2 MG TABLET PO PRN (15:54)
[2022-08-07] MEDS: MELATONIN 5 MG TABLET PO SCH (20:06)
[2022-08-07] MEDS: OLANZapine 5 MG RAPDIS TABLET PO SCH (20:06)
[2022-08-07 20:37] VITALS: BP 121/67
[2022-08-08] MEDS ORDERED: PALIPERIDONE PALMITATE 156 MG/ML SYRINGE IM ONE (09:00)
[2022-08-08 09:01] VITALS: BP 105/63
[2022-08-08] MEDS: MULTIVITAMINS WITH MINERALS, THERAPEUTIC TABLET PO SCH (09:47)
[2022-08-08] MEDS: FOLIC ACID 1 MG TABLET PO SCH (09:47)
[2022-08-08] MEDS: OMEGA-3/DHA/EPA/FISH OIL 1,000 MG CAPSULE PO SCH (09:47)
[2022-08-08] MEDS: THIAMINE 100 MG TABLET PO SCH ×2 (09:47→17:08)
[2022-08-08] MEDS: DEXTROMETHORPHAN HBR/QUINIDINE 20/10 MG CAPSULE PO SCH (09:47)
[2022-08-08] MEDS: NALTREXONE HCL 50 MG TABLET PO SCH (09:47)
[2022-08-08] MEDS: BuPROPion HCL XL 150 MG ER TABLET PO SCH (09:47)
[2022-08-08] MEDS ORDERED: NICOTINE POLACRILEX 2 MG LOZENGE PO PRN (16:30)
[2022-08-08] MEDS: LORazepam 2 MG TABLET PO PRN (17:20)
[2022-08-08] MEDS: NICOTINE 21 MG/24 HOUR PATCH TD SCH (17:23)
[2022-08-08] MEDS: MELATONIN 5 MG TABLET PO SCH (20:02)
[2022-08-08] MEDS: OLANZapine 5 MG RAPDIS TABLET PO SCH (20:03)
[2022-08-08 20:51] VITALS: BP 123/86
[2022-08-09] MEDS: THIAMINE 100 MG TABLET PO SCH ×2 (09:22→16:29)
[2022-08-09] MEDS: NALTREXONE HCL 50 MG TABLET PO SCH (09:22)
[2022-08-09] MEDS: MULTIVITAMINS WITH MINERALS, THERAPEUTIC TABLET PO SCH (09:22)
[2022-08-09] MEDS: NICOTINE 21 MG/24 HOUR PATCH TD SCH (09:22)
[2022-08-09] MEDS: FOLIC ACID 1 MG TABLET PO SCH (09:22)
[2022-08-09] MEDS: DEXTROMETHORPHAN HBR/QUINIDINE 20/10 MG CAPSULE PO SCH (09:22)
[2022-08-09] MEDS: OMEGA-3/DHA/EPA/FISH OIL 1,000 MG CAPSULE PO SCH (09:22)
[2022-08-09] MEDS: BuPROPion HCL XL 150 MG ER TABLET PO SCH (09:22)
[2022-08-09 11:58] VITALS: BP 108/60
[2022-08-09] MEDS: LORazepam 2 MG TABLET PO PRN (16:30)
[2022-08-09 20:08] VITALS: BP 109/82
[2022-08-09] MEDS: MELATONIN 5 MG TABLET PO SCH (20:43)
[2022-08-09] MEDS: OLANZapine 10 MG RAPDIS TABLET PO SCH (20:43)
[2022-08-10 07:16] LABS: GLUCOMETER DEV NAME(LOC) POC.BV
[2022-08-10] MEDS: BuPROPion HCL XL 150 MG ER TABLET PO SCH (09:00)
[2022-08-10] MEDS: THIAMINE 100 MG TABLET PO SCH ×2 (09:00→16:04)
[2022-08-10] MEDS: DEXTROMETHORPHAN HBR/QUINIDINE 20/10 MG CAPSULE PO SCH (09:00)
[2022-08-10] MEDS: FOLIC ACID 1 MG TABLET PO SCH (09:00)
[2022-08-10] MEDS: MULTIVITAMINS WITH MINERALS, THERAPEUTIC TABLET PO SCH (09:00)
[2022-08-10] MEDS: OMEGA-3/DHA/EPA/FISH OIL 1,000 MG CAPSULE PO SCH (09:00)
[2022-08-10] MEDS: NALTREXONE HCL 50 MG TABLET PO SCH (09:00)
[2022-08-10] MEDS: NICOTINE 21 MG/24 HOUR PATCH TD SCH (09:01)
[2022-08-10 09:24] VITALS: BP 114/73
[2022-08-10] MEDS: LORazepam 2 MG TABLET PO PRN (15:41)
[2022-08-10] MEDS: MELATONIN 5 MG TABLET PO SCH (20:02)
[2022-08-10] MEDS: OLANZapine 10 MG RAPDIS TABLET PO SCH (20:02)
[2022-08-10 20:43] VITALS: BP 110/69
[2022-08-11] MEDS ORDERED: MODAFINIL 100 MG TABLET PO SCH (09:00)
[2022-08-11] MEDS: DEXTROMETHORPHAN HBR/QUINIDINE 20/10 MG CAPSULE PO SCH (09:20)
[2022-08-11] MEDS: BuPROPion HCL XL 150 MG ER TABLET PO SCH (09:20)
[2022-08-11] MEDS: THIAMINE 100 MG TABLET PO SCH ×2 (09:21→15:59)
[2022-08-11] MEDS: OMEGA-3/DHA/EPA/FISH OIL 1,000 MG CAPSULE PO SCH (09:21)
[2022-08-11] MEDS: NICOTINE 21 MG/24 HOUR PATCH TD SCH (09:21)
[2022-08-11] MEDS: FOLIC ACID 1 MG TABLET PO SCH (09:21)
[2022-08-11] MEDS: MULTIVITAMINS WITH MINERALS, THERAPEUTIC TABLET PO SCH (09:21)
[2022-08-11] MEDS: NALTREXONE HCL 50 MG TABLET PO SCH (09:27)
[2022-08-11 09:47] VITALS: BP 105/59
[2022-08-11] MEDS: LORazepam 2 MG TABLET PO PRN (15:59)
[2022-08-11 20:00] VITALS: BP 107/72
[2022-08-11] MEDS: OLANZapine 10 MG RAPDIS TABLET PO SCH (20:09)
[2022-08-11] MEDS: ZOLPIDEM TARTRATE 10 MG TABLET PO PRN (20:09)
[2022-08-11] MEDS: MELATONIN 5 MG TABLET PO SCH (20:09)
[2022-08-12] MEDS: NICOTINE 21 MG/24 HOUR PATCH TD SCH (08:26)
[2022-08-12] MEDS: DEXTROMETHORPHAN HBR/QUINIDINE 20/10 MG CAPSULE PO SCH (08:28)
[2022-08-12] MEDS: MULTIVITAMINS WITH MINERALS, THERAPEUTIC TABLET PO SCH (08:28)
[2022-08-12] MEDS: OMEGA-3/DHA/EPA/FISH OIL 1,000 MG CAPSULE PO SCH (08:28)
[2022-08-12] MEDS: THIAMINE 100 MG TABLET PO SCH ×2 (08:28→17:22)
[2022-08-12] MEDS: FOLIC ACID 1 MG TABLET PO SCH (08:28)
[2022-08-12] MEDS: NALTREXONE HCL 50 MG TABLET PO SCH (08:28)
[2022-08-12] MEDS: MODAFINIL 100 MG TABLET PO SCH (08:28)
[2022-08-12] MEDS: BuPROPion HCL XL 150 MG ER TABLET PO SCH (08:28)
[2022-08-12 09:19] VITALS: BP 106/72
[2022-08-12] MEDS: LORazepam 2 MG TABLET PO PRN ×2 (14:10→22:22)
[2022-08-12 20:00] VITALS: BP 110/69
[2022-08-12] MEDS: OLANZapine 10 MG RAPDIS TABLET PO SCH (21:07)
[2022-08-12] MEDS: MELATONIN 5 MG TABLET PO SCH (21:07)
[2022-08-12] MEDS: ZOLPIDEM TARTRATE 10 MG TABLET PO PRN (21:07)
[2022-08-13 08:23] VITALS: BP 112/61
[2022-08-13] MEDS: BuPROPion HCL XL 150 MG ER TABLET PO SCH (08:27)
[2022-08-13] MEDS: MODAFINIL 100 MG TABLET PO SCH (08:27)
[2022-08-13] MEDS: NICOTINE 21 MG/24 HOUR PATCH TD SCH (08:27)
[2022-08-13] MEDS: MULTIVITAMINS WITH MINERALS, THERAPEUTIC TABLET PO SCH (08:28)
[2022-08-13] MEDS: DEXTROMETHORPHAN HBR/QUINIDINE 20/10 MG CAPSULE PO SCH (08:28)
[2022-08-13] MEDS: NALTREXONE HCL 50 MG TABLET PO SCH (08:28)
[2022-08-13] MEDS: THIAMINE 100 MG TABLET PO SCH (08:28)
[2022-08-13] MEDS: OMEGA-3/DHA/EPA/FISH OIL 1,000 MG CAPSULE PO SCH (08:28)
[2022-08-13] MEDS: FOLIC ACID 1 MG TABLET PO SCH (08:28)
[2022-08-13] MEDS: GABAPENTIN 300 MG CAPSULE PO PRN (19:01)
[2022-08-13] MEDS: MELATONIN 5 MG TABLET PO SCH (20:59)
[2022-08-13] MEDS: ESZOPICLONE 3 MG TABLET PO SCH (20:59)
[2022-08-13] MEDS: OLANZapine 10 MG RAPDIS TABLET PO SCH (20:59)
[2022-08-13 21:11] VITALS: BP 108/60
[2022-08-14] MEDS: BuPROPion HCL XL 150 MG ER TABLET PO SCH (08:49)
[2022-08-14] MEDS: MULTIVITAMINS WITH MINERALS, THERAPEUTIC TABLET PO SCH (08:49)
[2022-08-14] MEDS: NALTREXONE HCL 50 MG TABLET PO SCH (08:49)
[2022-08-14] MEDS: DEXTROMETHORPHAN HBR/QUINIDINE 20/10 MG CAPSULE PO SCH (08:49)
[2022-08-14] MEDS: OMEGA-3/DHA/EPA/FISH OIL 1,000 MG CAPSULE PO SCH (08:50)
[2022-08-14] MEDS: MODAFINIL 100 MG TABLET PO SCH (08:50)
[2022-08-14] MEDS: NICOTINE 21 MG/24 HOUR PATCH TD SCH (09:30)
[2022-08-14 09:51] VITALS: BP 108/60
[2022-08-14] MEDS: GABAPENTIN 300 MG CAPSULE PO PRN (18:15)
[2022-08-14] MEDS ORDERED: OLANZapine 5 MG RAPDIS TABLET PO PRN (20:15)
[2022-08-14 21:01] VITALS: BP 107/73
[2022-08-14] MEDS: ESZOPICLONE 3 MG TABLET PO SCH (21:19)
[2022-08-14] MEDS: OLANZapine 10 MG RAPDIS TABLET PO SCH (21:19)
[2022-08-14] MEDS: MELATONIN 5 MG TABLET PO SCH (21:20)
[2022-08-15 08:44] VITALS: BP 118/64
[2022-08-15] MEDS ORDERED: CLOTRIMAZOLE 1% 10 ML SOLUTION TP SCH (09:00)
[2022-08-15] MEDS: MODAFINIL 100 MG TABLET PO SCH (09:05)
[2022-08-15] MEDS: NALTREXONE HCL 50 MG TABLET PO SCH (09:05)
[2022-08-15] MEDS: BuPROPion HCL XL 150 MG ER TABLET PO SCH (09:05)
[2022-08-15] MEDS: NICOTINE 21 MG/24 HOUR PATCH TD SCH (09:05)
[2022-08-15] MEDS: OMEGA-3/DHA/EPA/FISH OIL 1,000 MG CAPSULE PO SCH (09:05)
[2022-08-15] MEDS: MULTIVITAMINS WITH MINERALS, THERAPEUTIC TABLET PO SCH (09:05)
[2022-08-15] MEDS: DEXTROMETHORPHAN HBR/QUINIDINE 20/10 MG CAPSULE PO SCH (09:05)
[2022-08-15] MEDS: CLOTRIMAZOLE 1% 15 GM CREAM TP SCH ×2 (09:06→17:05)
[2022-08-15 20:48] VITALS: BP 101/60
[2022-08-15] MEDS: MELATONIN 5 MG TABLET PO SCH (20:56)
[2022-08-15] MEDS: ESZOPICLONE 3 MG TABLET PO SCH (20:56)
[2022-08-15] MEDS: OLANZapine 10 MG RAPDIS TABLET PO SCH (20:57)
[2022-08-16 08:22] VITALS: BP 90/52
[2022-08-16] MEDS: MULTIVITAMINS WITH MINERALS, THERAPEUTIC TABLET PO SCH (09:31)
[2022-08-16] MEDS: NICOTINE 21 MG/24 HOUR PATCH TD SCH (09:31)
[2022-08-16] MEDS: BuPROPion HCL XL 150 MG ER TABLET PO SCH (09:31)
[2022-08-16] MEDS: MODAFINIL 100 MG TABLET PO SCH (09:31)
[2022-08-16] MEDS: OMEGA-3/DHA/EPA/FISH OIL 1,000 MG CAPSULE PO SCH (09:31)
[2022-08-16] MEDS: DEXTROMETHORPHAN HBR/QUINIDINE 20/10 MG CAPSULE PO SCH (09:32)
[2022-08-16] MEDS: NALTREXONE HCL 50 MG TABLET PO SCH (09:40)
[2022-08-16] MEDS: CLOTRIMAZOLE 1% 15 GM CREAM TP SCH (09:41)
[2022-08-16] MEDS ORDERED: MELA5TAB40 PO (14:48)
[2022-08-16] MEDS ORDERED: BUPR-49 PO (14:48)
[2022-08-16] MEDS ORDERED: OMEG-135 PO (14:48)
[2022-08-16] MEDS ORDERED: OLAN10TA26 PO (14:48)
[2022-08-16] MEDS ORDERED: NALT50TA PO (14:48)
[2022-08-16 15:36] LABS: GLUCOMETER DEV NAME(LOC) POC.BV
== END 2022-08-16 16:30 | disposition home or self-care (01) | DRG 885 ==
LOC: B2X 18:28
PROVIDERS: ADMIT Psychiatry & Neurology Psychiatry; ATTEND Psychiatry & Neurology Psychiatry
DX: F25.9 Schizoaffective disorder, unspecified (principal); F41.9 Anxiety disorder, unspecified; G47.00 Insomnia, unspecified; Z20.822 Contact with and (suspected) exposure to COVID-19; J44.9 Chronic obstructive pulmonary disease, unspecified; Z55.9 Problems related to education and literacy, unspecified; Z59.9 Problem related to housing and economic circumstances, unspecified; Z63.9 Problem related to primary support group, unspecified; Z65.3 Problems related to other legal circumstances; Z74.01 Bed confinement status; Z87.891 Personal history of nicotine dependence; Z88.0 Allergy status to penicillin
CPT/HCPCS: 80053; 80061; 82306; 83036; 84439; 84443; 85025; 86592; 90686; 90732; Q9967

== ENCOUNTER 2023-01-05 10:58 | Inpatient (IN) | payer MEDICARE, MEDICAID ==
[~2023-01-05] VITALS: Ht 180.3 cm; Wt 86.2 kg
[~2023-01-05 10:58] MED LIST changes: +BUSP10TA23 PO; +FLUO20CA36 PO; +MODA100T65 PO; -OLAN10 PO; +OLAN10TA26 PO
[2023-01-05 14:01] VITALS: BP 112/68
[2023-01-05] MEDS: HALOPERIDOL 5 MG TABLET PO PRN (19:14)
[2023-01-05] MEDS: LORazepam 2 MG TABLET PO PRN (19:14)
[2023-01-05 21:13] VITALS: BP 111/71
[2023-01-06 07:11] LABS: BASOPHILS % (AUTO) 0.5 % (0.0-2.0); EOSINOPHILS % (AUTO) 3.7 % (1.0-6.0); HEMATOCRIT 38.9 % (41-53); HEMOGLOBIN 13.3 g/dL (13.5-17.5); LYMPHOCYTES # (AUTO) 2.3 K/uL (1.0-4.8); LYMPHOCYTES % (AUTO) 41.7 % (22.0-44.0); MEAN CORPUSCULAR HEMOGLOBIN 27.9 pg (26.0-34.0); MEAN CORPUSCULAR HGB CONC 34.1 G/dL (31.0-37.0); MEAN CORPUSCULAR VOLUME 82 fL (80-100); MONOCYTES # (AUTO) 0.4 K/uL (0.1-1.0); MONOCYTES % (AUTO) 7.3 % (2.0-9.0); NEUTROPHILS # (AUTO) 2.6 K/uL (1.8-7.7); NEUTROPHILS % (AUTO) 46.8 % (40.0-70.0); PLATELET COUNT (AUTO) 311 K/uL (150-450); RED BLOOD CELL COUNT(AUTO) 4.76 MIL/uL (4.50-5.90); RED CELL DISTRIBUTION WIDTH 13.9 % (11.5-14.5)
[2023-01-06 07:21] LABS: HEMOGLOBIN A1C 4.8 % (3.8-5.6)
[2023-01-06 07:38] LABS: ALANINE AMINOTRANSFERASE 22 U/L (12-78); ALBUMIN 3.5 g/dL (3.4-5.0); ALKALINE PHOSPHATASE 64 U/L (46-116); ANION GAP 4 mmol/L (8-16); ASPARTATE AMINOTRANSFERASE 17 U/L (15-37); BILIRUBIN,TOTAL 0.6 mg/dL (0.1-1.0); CALCIUM, TOTAL 8.7 mg/dL (8.8-10.5); CARBON DIOXIDE 29 mmol/L (22-29); CHLORIDE 103 mmol/L (98-107); CHOL/HDL RATIO 2.4 (4.2-7.3); CHOLESTEROL 128 mg/dL (131-200); CREATININE 0.72 mg/dL (0.60-1.30); FREE T4 (FREE THYROXINE) 0.91 ng/dL (0.76-1.46); GLOMERULAR FILTR. RATE CALC > 60 mL/min (>60); GLUCOSE,RANDOM 105 mg/dL (70-110); HDL CHOLESTEROL 53 mg/dL (40-60); LDL CHOL (CALC.) 68 mg/dL (0-130); POTASSIUM 3.8 mmol/L (3.5-5.1); SODIUM SERUM 136 mmol/L (136-145); THYROID STIMULATING HORMONE 2.51 uIU/mL (0.36-3.74); TOTAL PROTEIN, SERUM 6.3 g/dL (6.4-8.2); TRIGLYCERIDES 36 mg/dL (15-150); UREA NITROGEN, BLOOD 16 mg/dL (7-18)
[2023-01-06 08:43] VITALS: BP 107/60
[2023-01-06] MEDS: NICOTINE 21 MG/24 HOUR PATCH TD SCH (08:51)
[2023-01-06] MEDS ORDERED: BACITRACIN 28 GM OINTMENT TP PRN (13:00)
[2023-01-06] MEDS ORDERED: OMEPRAZOLE 20 MG CAPSULE PO PRN (13:00)
[2023-01-06] MEDS ORDERED: ALBUTEROL SULFATE HFA 90 MCG/PUFF 8 GM INHALER IH PRN (13:00)
[2023-01-06] MEDS ORDERED: LOPERAMIDE HCL 2 MG CAPSULE PO PRN (13:00)
[2023-01-06] MEDS ORDERED: MAGNESIUM HYDROXIDE SUSPENSION 30 ML UDCUP PO PRN (13:00)
[2023-01-06] MEDS ORDERED: BENZOCAINE/MENTHOL LOZENGE PO PRN (13:00)
[2023-01-06] MEDS ORDERED: PETROLATUM,WHITE 28 GM JELLY TP PRN (13:00)
[2023-01-06] MEDS ORDERED: IBUPROFEN 600 MG TABLET PO PRN (13:00)
[2023-01-06] MEDS ORDERED: CloNIDine HCL 0.1 MG TABLET PO PRN (13:00)
[2023-01-06] MEDS ORDERED: DOCUSATE SODIUM 100 MG CAPSULE PO PRN (13:00)
[2023-01-06] MEDS ORDERED: MAG HYDROX/AL HYDROX/SIMETH ES 30 ML SUSPENSION UDCUP PO PRN (13:00)
[2023-01-06] MEDS ORDERED: ONDANSETRON HCL 4 MG TABLET PO PRN (13:00)
[2023-01-06] MEDS ORDERED: ACETAMINOPHEN 325 MG TABLET PO PRN (13:00)
[2023-01-06] MEDS: LORazepam 2 MG TABLET PO PRN ×3 (17:42→21:05)
[2023-01-06] MEDS: HALOPERIDOL 5 MG TABLET PO PRN (17:42)
[2023-01-06] MEDS: OLANZapine 10 MG TABLET PO SCH (20:25)
[2023-01-06 23:09] VITALS: BP 107/71
[2023-01-07 08:37] VITALS: BP 100/60
[2023-01-07] MEDS: NICOTINE 21 MG/24 HOUR PATCH TD SCH (08:55)
[2023-01-07] MEDS: HALOPERIDOL 5 MG TABLET PO PRN (18:45)
[2023-01-07] MEDS: LORazepam 2 MG TABLET PO PRN (18:45)
[2023-01-07 20:13] VITALS: BP 124/75
[2023-01-07] MEDS: OLANZapine 10 MG TABLET PO SCH (20:21)
[2023-01-08 08:25] VITALS: BP 119/68
[2023-01-08] MEDS: NICOTINE 21 MG/24 HOUR PATCH TD SCH (08:35)
[2023-01-08] MEDS: HALOPERIDOL 5 MG TABLET PO PRN (17:57)
[2023-01-08] MEDS: LORazepam 2 MG TABLET PO PRN (17:57)
[2023-01-08] MEDS: OLANZapine 10 MG TABLET PO SCH (20:09)
[2023-01-08 20:38] VITALS: BP 108/58
[2023-01-09] MEDS: NICOTINE 21 MG/24 HOUR PATCH TD SCH (08:09)
[2023-01-09 08:23] VITALS: BP 137/61
[2023-01-09] MEDS: HALOPERIDOL 5 MG TABLET PO PRN (15:59)
[2023-01-09] MEDS: LORazepam 2 MG TABLET PO PRN (15:59)
[2023-01-09] MEDS: OLANZapine 10 MG TABLET PO SCH (20:54)
[2023-01-10 08:30] VITALS: BP 101/65
[2023-01-10 09:16] LABS: GLUCOMETER DEV NAME(LOC) POC.BV
[2023-01-10] MEDS: NICOTINE 21 MG/24 HOUR PATCH TD SCH (09:48)
[2023-01-10] MEDS: LORazepam 2 MG TABLET PO PRN (15:34)
[2023-01-10] MEDS: HALOPERIDOL 5 MG TABLET PO PRN (15:34)
[2023-01-10] MEDS: OLANZapine 10 MG TABLET PO SCH (20:07)
[2023-01-10 20:50] VITALS: BP 98/54
[2023-01-11] MEDS: NICOTINE 21 MG/24 HOUR PATCH TD SCH (08:11)
[2023-01-11 08:51] VITALS: BP 112/60
[2023-01-11] MEDS: HALOPERIDOL 5 MG TABLET PO PRN (18:03)
[2023-01-11] MEDS: LORazepam 2 MG TABLET PO PRN (18:03)
[2023-01-11] MEDS: OLANZapine 10 MG TABLET PO SCH (20:03)
[2023-01-11 21:07] VITALS: BP 113/65
[2023-01-12 08:26] VITALS: BP 118/60
[2023-01-12] MEDS: NICOTINE 21 MG/24 HOUR PATCH TD SCH (08:35)
[2023-01-12] MEDS: HALOPERIDOL 5 MG TABLET PO PRN (18:21)
[2023-01-12] MEDS: OLANZapine 10 MG TABLET PO SCH (21:25)
[2023-01-12 22:28] VITALS: BP 105/60
[2023-01-13 08:55] VITALS: BP 112/62
[2023-01-13] MEDS: NICOTINE 21 MG/24 HOUR PATCH TD SCH (09:13)
[2023-01-13] MEDS: LORazepam 2 MG TABLET PO PRN (14:57)
[2023-01-13] MEDS: HALOPERIDOL 5 MG TABLET PO PRN (17:50)
[2023-01-13 20:09] VITALS: BP 105/75
[2023-01-13] MEDS: OLANZapine 10 MG TABLET PO SCH (20:19)
[2023-01-14 08:19] VITALS: BP 107/72
[2023-01-14] MEDS: NICOTINE 21 MG/24 HOUR PATCH TD SCH (08:57)
[2023-01-14] MEDS: LORazepam 2 MG TABLET PO PRN ×2 (11:17→21:21)
[2023-01-14] MEDS: HALOPERIDOL 5 MG TABLET PO PRN (16:54)
[2023-01-14] MEDS: OLANZapine 10 MG TABLET PO SCH (20:20)
[2023-01-14 21:33] VITALS: BP 116/80
[2023-01-15] MEDS: NICOTINE 21 MG/24 HOUR PATCH TD SCH (08:27)
[2023-01-15 13:10] VITALS: BP 118/74
[2023-01-15] MEDS: LORazepam 2 MG TABLET PO PRN (14:39)
[2023-01-15] MEDS: HALOPERIDOL 5 MG TABLET PO PRN (17:09)
[2023-01-15] MEDS: OLANZapine 10 MG TABLET PO SCH (20:18)
[2023-01-15 20:31] VITALS: BP 106/62
[2023-01-16 08:10] VITALS: BP 103/63
[2023-01-16] MEDS: NICOTINE 21 MG/24 HOUR PATCH TD SCH (08:28)
[2023-01-16] MEDS: LORazepam 2 MG TABLET PO PRN ×2 (11:06→16:56)
[2023-01-16] MEDS: HALOPERIDOL 5 MG TABLET PO PRN (16:56)
[2023-01-16] MEDS: OLANZapine 10 MG TABLET PO SCH (20:58)
[2023-01-16] MEDS: ZOLPIDEM TARTRATE 10 MG TABLET PO PRN (20:58)
[2023-01-16 22:07] VITALS: BP 100/64
[2023-01-17 08:22] VITALS: BP 112/62
[2023-01-17] MEDS: NICOTINE 21 MG/24 HOUR PATCH TD SCH (08:26)
[2023-01-17 10:46] LABS: GLUCOMETER DEV NAME(LOC) POC.BV
[2023-01-17] MEDS: HALOPERIDOL 5 MG TABLET PO PRN ×2 (13:26→18:51)
[2023-01-17] MEDS: LORazepam 2 MG TABLET PO PRN ×2 (13:26→18:52)
[2023-01-17] MEDS: OLANZapine 10 MG TABLET PO SCH (20:05)
[2023-01-17] MEDS: ZOLPIDEM TARTRATE 10 MG TABLET PO PRN (20:05)
[2023-01-17 20:55] VITALS: BP 110/70
[2023-01-18] MEDS: NICOTINE 21 MG/24 HOUR PATCH TD SCH (08:21)
[2023-01-18 09:57] VITALS: BP 94/60
[2023-01-18] MEDS: LORazepam 2 MG TABLET PO PRN (15:01)
[2023-01-18] MEDS: HALOPERIDOL 5 MG TABLET PO PRN (18:56)
[2023-01-18 19:52] VITALS: BP 110/67
[2023-01-18 20:11] VITALS: BP 104/65
[2023-01-18] MEDS: ZOLPIDEM TARTRATE 10 MG TABLET PO PRN (20:30)
[2023-01-18] MEDS: OLANZapine 10 MG TABLET PO SCH (20:30)
[2023-01-19 08:05] VITALS: BP 121/82
[2023-01-19] MEDS: NICOTINE 21 MG/24 HOUR PATCH TD SCH (08:33)
[2023-01-19] MEDS: LORazepam 2 MG TABLET PO PRN ×2 (11:33→17:02)
[2023-01-19] MEDS: HALOPERIDOL 5 MG TABLET PO PRN ×2 (11:33→18:43)
[2023-01-19 20:07] VITALS: BP 100/64
[2023-01-19] MEDS: OLANZapine 10 MG TABLET PO SCH (20:33)
[2023-01-19] MEDS: ZOLPIDEM TARTRATE 10 MG TABLET PO PRN (20:47)
[2023-01-20 08:30] VITALS: BP 94/66
[2023-01-20] MEDS: NICOTINE 21 MG/24 HOUR PATCH TD SCH (08:38)
[2023-01-20 13:26] VITALS: BP 113/64
[2023-01-20] MEDS: LORazepam 2 MG TABLET PO PRN ×2 (13:38→18:32)
[2023-01-20] MEDS: HALOPERIDOL 5 MG TABLET PO PRN ×2 (13:38→18:32)
[2023-01-20] MEDS ORDERED: OLAN10 PO (18:35)
[2023-01-20] MEDS ORDERED: OLAN10TA74 PO (19:08)
== END 2023-01-20 19:58 | disposition home or self-care (01) | DRG 885 ==
LOC: B2X 12:59
PROVIDERS: ADMIT Psychiatry & Neurology Psychiatry; ATTEND Psychiatry & Neurology Psychiatry
DX: F25.9 Schizoaffective disorder, unspecified (principal); R45.851 Suicidal ideations; F32.A Depression, unspecified; Z20.822 Contact with and (suspected) exposure to COVID-19; F41.9 Anxiety disorder, unspecified; G47.00 Insomnia, unspecified; F15.10 Other stimulant abuse, uncomplicated; K59.00 Constipation, unspecified; F12.10 Cannabis abuse, uncomplicated; Z59.00 Homelessness unspecified; Z88.0 Allergy status to penicillin; Z91.048 Other nonmedicinal substance allergy status; Z79.899 Other long term (current) drug therapy; Z72.0 Tobacco use; Z71.6 Tobacco abuse counseling
CPT/HCPCS: 80053; 80061; 83036; 84436; 84439; 84443; 85025; 86592; G0480

== ENCOUNTER 2023-02-02 13:34 | Inpatient (IN) | payer MEDICARE, MEDICAID ==
[~2023-02-02] VITALS: Ht 180.3 cm; Wt 87.3 kg
[~2023-02-02 13:34] MED LIST changes: -BUSP10TA23 PO; -FLUO20CA36 PO; -MELA5TAB40 PO; -MODA100T65 PO; -NALT50TA PO; +OLAN10 PO; -OMEG-135 PO
[2023-02-02] MEDS: LORazepam 2 MG TABLET PO PRN (19:53)
[2023-02-02] MEDS: HALOPERIDOL 5 MG TABLET PO PRN (19:53)
[2023-02-02 20:15] VITALS: BP 108/61
[2023-02-03] MEDS ORDERED: BACITRACIN 28 GM OINTMENT TP PRN (07:00)
[2023-02-03] MEDS ORDERED: ONDANSETRON HCL 4 MG TABLET PO PRN (07:00)
[2023-02-03] MEDS ORDERED: BENZOCAINE/MENTHOL LOZENGE PO PRN (07:00)
[2023-02-03] MEDS ORDERED: CloNIDine HCL 0.1 MG TABLET PO PRN (07:00)
[2023-02-03] MEDS ORDERED: PETROLATUM,WHITE 28 GM JELLY TP PRN (07:00)
[2023-02-03] MEDS ORDERED: LOPERAMIDE HCL 2 MG CAPSULE PO PRN (07:00)
[2023-02-03] MEDS ORDERED: IBUPROFEN 600 MG TABLET PO PRN (07:00)
[2023-02-03] MEDS ORDERED: MAG HYDROX/AL HYDROX/SIMETH ES 30 ML SUSPENSION UDCUP PO PRN (07:00)
[2023-02-03] MEDS ORDERED: OMEPRAZOLE 20 MG CAPSULE PO PRN (07:00)
[2023-02-03] MEDS ORDERED: MAGNESIUM HYDROXIDE SUSPENSION 30 ML UDCUP PO PRN (07:00)
[2023-02-03] MEDS ORDERED: ACETAMINOPHEN 325 MG TABLET PO PRN (07:00)
[2023-02-03] MEDS ORDERED: ALBUTEROL SULFATE HFA 90 MCG/PUFF 8 GM INHALER IH PRN (07:00)
[2023-02-03] MEDS ORDERED: DOCUSATE SODIUM 100 MG CAPSULE PO PRN (07:00)
[2023-02-03 08:19] VITALS: BP 100/64
[2023-02-03 08:19] LABS: BASOPHILS % (AUTO) 0.4 % (0.0-2.0); EOSINOPHILS % (AUTO) 1.8 % (1.0-6.0); HEMOGLOBIN 13.1 g/dL (13.5-17.5); LYMPHOCYTES # (AUTO) 1.8 K/uL (1.0-4.8); LYMPHOCYTES % (AUTO) 29.7 % (22.0-44.0); MEAN CORPUSCULAR HEMOGLOBIN 28.1 pg (26.0-34.0); MEAN CORPUSCULAR HGB CONC 34.3 G/dL (31.0-37.0); MEAN CORPUSCULAR VOLUME 82 fL (80-100); MONOCYTES # (AUTO) 0.7 K/uL (0.1-1.0); MONOCYTES % (AUTO) 11.7 % (2.0-9.0); NEUTROPHILS # (AUTO) 3.3 K/uL (1.8-7.7); NEUTROPHILS % (AUTO) 56.4 % (40.0-70.0); PLATELET COUNT (AUTO) 356 K/uL (150-450); RED BLOOD CELL COUNT(AUTO) 4.65 MIL/uL (4.50-5.90); RED CELL DISTRIBUTION WIDTH 13.8 % (11.5-14.5)
[2023-02-03 08:28] LABS: ALANINE AMINOTRANSFERASE 25 U/L (12-78); ALBUMIN 3.4 g/dL (3.4-5.0); ALKALINE PHOSPHATASE 71 U/L (46-116); ANION GAP 5 mmol/L (8-16); ASPARTATE AMINOTRANSFERASE 14 U/L (15-37); BILIRUBIN,TOTAL 0.9 mg/dL (0.1-1.0); CALCIUM, TOTAL 8.9 mg/dL (8.8-10.5); CARBON DIOXIDE 31 mmol/L (22-29); CHLORIDE 103 mmol/L (98-107); CHOL/HDL RATIO 2.8 (4.2-7.3); CHOLESTEROL 131 mg/dL (131-200); GLOMERULAR FILTR. RATE CALC > 60 mL/min (>60); GLUCOSE,RANDOM 84 mg/dL (70-110); HDL CHOLESTEROL 46 mg/dL (40-60); LDL CHOL (CALC.) 66 mg/dL (0-130); POTASSIUM 4.1 mmol/L (3.5-5.1); SODIUM SERUM 139 mmol/L (136-145); THYROID STIMULATING HORMONE 1.67 uIU/mL (0.36-3.74); TOTAL PROTEIN, SERUM 6.4 g/dL (6.4-8.2); TRIGLYCERIDES 93 mg/dL (15-150); UREA NITROGEN, BLOOD 12 mg/dL (7-18)
[2023-02-03] MEDS: HALOPERIDOL 5 MG TABLET PO PRN (16:52)
[2023-02-03] MEDS: LORazepam 2 MG TABLET PO PRN (16:52)
[2023-02-03 20:25] VITALS: BP 105/64
[2023-02-03] MEDS: OLANZapine 10 MG TABLET PO SCH (21:13)
[2023-02-04 08:17] VITALS: BP 115/70
[2023-02-04 17:24] VITALS: BP 108/71
[2023-02-04] MEDS: LORazepam 2 MG TABLET PO PRN (17:31)
[2023-02-04] MEDS: HALOPERIDOL 5 MG TABLET PO PRN (17:31)
[2023-02-04] MEDS: OLANZapine 10 MG TABLET PO SCH (20:19)
[2023-02-04 20:48] VITALS: BP 118/63
[2023-02-05 08:34] VITALS: BP 106/63
[2023-02-05 17:42] VITALS: BP 109/77
[2023-02-05] MEDS: LORazepam 2 MG TABLET PO PRN (17:47)
[2023-02-05] MEDS: HALOPERIDOL 5 MG TABLET PO PRN (17:47)
[2023-02-05] MEDS: OLANZapine 10 MG TABLET PO SCH (20:28)
[2023-02-05 20:56] VITALS: BP 106/64
[2023-02-06 09:12] VITALS: BP 110/74
[2023-02-06] MEDS: LORazepam 2 MG TABLET PO PRN (15:30)
[2023-02-06] MEDS: HALOPERIDOL 5 MG TABLET PO PRN (15:30)
[2023-02-06] MEDS: OLANZapine 10 MG TABLET PO SCH (20:27)
[2023-02-06 22:45] VITALS: BP 117/68
[2023-02-07 09:00] VITALS: BP 104/68
[2023-02-07 09:46] LABS: GLUCOMETER DEV NAME(LOC) POC.BV
[2023-02-07] MEDS: LORazepam 2 MG TABLET PO PRN ×2 (09:52→18:30)
[2023-02-07] MEDS: HALOPERIDOL 5 MG TABLET PO PRN (18:30)
[2023-02-07] MEDS: OLANZapine 10 MG TABLET PO SCH (20:03)
[2023-02-07 20:37] VITALS: BP 110/68
[2023-02-08 09:01] VITALS: BP 122/72
[2023-02-08] MEDS: LORazepam 2 MG TABLET PO PRN (15:59)
[2023-02-08] MEDS: OLANZapine 10 MG TABLET PO SCH (20:37)
[2023-02-08] MEDS: ZOLPIDEM TARTRATE 10 MG TABLET PO PRN (20:37)
[2023-02-08 22:53] VITALS: BP 107/68
[2023-02-09 08:04] VITALS: BP 109/66
[2023-02-09] MEDS: HALOPERIDOL 5 MG TABLET PO PRN (14:41)
[2023-02-09] MEDS: LORazepam 2 MG TABLET PO PRN (14:41)
[2023-02-09] MEDS: OLANZapine 10 MG TABLET PO SCH (20:47)
[2023-02-09] MEDS: ZOLPIDEM TARTRATE 10 MG TABLET PO PRN (20:54)
[2023-02-09 21:05] VITALS: BP 102/64
[2023-02-10 08:14] VITALS: BP 108/68
[2023-02-10] MEDS: HALOPERIDOL 5 MG TABLET PO PRN (14:05)
[2023-02-10] MEDS: LORazepam 2 MG TABLET PO PRN ×2 (14:05→19:13)
[2023-02-10] MEDS: OLANZapine 10 MG TABLET PO SCH (20:29)
[2023-02-10] MEDS: ZOLPIDEM TARTRATE 10 MG TABLET PO PRN (20:52)
[2023-02-10 21:48] VITALS: BP 102/64
[2023-02-11 09:15] VITALS: BP 82/49
[2023-02-11] MEDS: LORazepam 2 MG TABLET PO PRN (14:29)
[2023-02-11] MEDS: HALOPERIDOL 5 MG TABLET PO PRN (14:29)
[2023-02-11 20:00] VITALS: BP 103/68
[2023-02-11] MEDS: OLANZapine 10 MG TABLET PO SCH (20:32)
[2023-02-11] MEDS: ZOLPIDEM TARTRATE 10 MG TABLET PO PRN (21:11)
[2023-02-12 08:27] VITALS: BP 132/76
[2023-02-12] MEDS: HALOPERIDOL 5 MG TABLET PO PRN ×2 (11:16→17:08)
[2023-02-12] MEDS: LORazepam 2 MG TABLET PO PRN ×2 (11:16→16:21)
[2023-02-12] MEDS: OLANZapine 10 MG TABLET PO SCH (20:28)
[2023-02-12] MEDS: ZOLPIDEM TARTRATE 10 MG TABLET PO PRN (21:05)
[2023-02-12 22:09] VITALS: BP 105/61
[2023-02-13 08:21] VITALS: BP 99/62
[2023-02-13] MEDS: SERTRALINE HCL 50 MG TABLET PO SCH (08:31)
[2023-02-13] MEDS: LORazepam 2 MG TABLET PO PRN (14:40)
[2023-02-13] MEDS: HALOPERIDOL 5 MG TABLET PO PRN (18:57)
[2023-02-13] MEDS: ZOLPIDEM TARTRATE 10 MG TABLET PO PRN (20:20)
[2023-02-13] MEDS: OLANZapine 10 MG TABLET PO SCH (20:21)
[2023-02-13 21:46] VITALS: BP 103/67
[2023-02-14] MEDS: SERTRALINE HCL 50 MG TABLET PO SCH (08:10)
[2023-02-14 08:32] VITALS: BP 106/60
[2023-02-14 09:16] LABS: GLUCOMETER DEV NAME(LOC) POC.BV
[2023-02-14] MEDS: LORazepam 2 MG TABLET PO PRN ×2 (12:19→18:07)
[2023-02-14] MEDS: HALOPERIDOL 5 MG TABLET PO PRN ×2 (12:19→18:07)
[2023-02-14] MEDS ORDERED: SERT-439 PO (15:49)
[2023-02-14] MEDS ORDERED: OLAN10 PO (15:49)
[2023-02-14 18:08] VITALS: BP 112/66
[2023-02-14 20:11] VITALS: BP 108/61
[2023-02-14] MEDS: OLANZapine 10 MG TABLET PO SCH (20:39)
[2023-02-15] MEDS: SERTRALINE HCL 50 MG TABLET PO SCH (08:11)
[2023-02-15 08:50] VITALS: BP 93/59
[2023-02-15] MEDS ORDERED: SERT-158 PO (11:21)
[2023-02-15 15:16] VITALS: BP 107/69
== END 2023-02-15 16:01 | disposition home or self-care (01) | DRG 885 ==
LOC: B2X 18:52
PROVIDERS: ADMIT Psychiatry & Neurology Psychiatry; ATTEND Psychiatry & Neurology Psychiatry
DX: F25.9 Schizoaffective disorder, unspecified (principal); R45.851 Suicidal ideations; Z20.822 Contact with and (suspected) exposure to COVID-19; F32.A Depression, unspecified; F41.9 Anxiety disorder, unspecified; F15.10 Other stimulant abuse, uncomplicated; F12.10 Cannabis abuse, uncomplicated; G47.00 Insomnia, unspecified; K59.00 Constipation, unspecified; Z88.0 Allergy status to penicillin; Z91.09 Other allergy status, other than to drugs and biological substances; Z79.899 Other long term (current) drug therapy
CPT/HCPCS: 80053; 80061; 83036; 84439; 84443; 85025; 87081

== ENCOUNTER 2023-03-17 17:32 | Inpatient (IN) | payer MEDICARE, MEDICAID ==
[~2023-03-17] VITALS: Ht 180.3 cm; Wt 94.4 kg
[~2023-03-17 17:32] MED LIST changes: -OLAN10TA26 PO; +SERT-158 PO; +SERT-439 PO
[2023-03-17 20:45] VITALS: BP 105/62
[2023-03-17] MEDS ORDERED: PETROLATUM,WHITE 28 GM JELLY TP PRN (20:45)
[2023-03-17] MEDS ORDERED: ACETAMINOPHEN 325 MG TABLET PO PRN (20:45)
[2023-03-17] MEDS ORDERED: IBUPROFEN 600 MG TABLET PO PRN (20:45)
[2023-03-17] MEDS ORDERED: LOPERAMIDE HCL 2 MG CAPSULE PO PRN (20:45)
[2023-03-17] MEDS ORDERED: BACITRACIN 28 GM OINTMENT TP PRN (20:45)
[2023-03-17] MEDS ORDERED: ALBUTEROL SULFATE HFA 90 MCG/PUFF 8 GM INHALER IH PRN (20:45)
[2023-03-17] MEDS ORDERED: DOCUSATE SODIUM 100 MG CAPSULE PO PRN (20:45)
[2023-03-17] MEDS ORDERED: ONDANSETRON HCL 4 MG TABLET PO PRN (20:45)
[2023-03-17] MEDS ORDERED: OMEPRAZOLE 20 MG CAPSULE PO PRN (20:45)
[2023-03-17] MEDS ORDERED: MAG HYDROX/AL HYDROX/SIMETH ES 30 ML SUSPENSION UDCUP PO PRN (20:45)
[2023-03-17] MEDS ORDERED: CloNIDine HCL 0.1 MG TABLET PO PRN (20:45)
[2023-03-17] MEDS ORDERED: MAGNESIUM HYDROXIDE SUSPENSION 30 ML UDCUP PO PRN (20:45)
[2023-03-18 00:31] VITALS: BP 110/69
[2023-03-18 07:07] LABS: EOSINOPHILS % (AUTO) 1.8 % (1.0-6.0); HEMATOCRIT 38.8 % (41-53); HEMOGLOBIN 13.3 g/dL (13.5-17.5); LYMPHOCYTES # (AUTO) 3.4 K/uL (1.0-4.8); LYMPHOCYTES % (AUTO) 57.9 % (22.0-44.0); MEAN CORPUSCULAR HEMOGLOBIN 28.4 pg (26.0-34.0); MEAN CORPUSCULAR HGB CONC 34.2 G/dL (31.0-37.0); MEAN CORPUSCULAR VOLUME 83 fL (80-100); MONOCYTES # (AUTO) 0.4 K/uL (0.1-1.0); MONOCYTES % (AUTO) 6.7 % (2.0-9.0); NEUTROPHILS # (AUTO) 1.9 K/uL (1.8-7.7); NEUTROPHILS % (AUTO) 32.6 % (40.0-70.0); PLATELET COUNT (AUTO) 389 K/uL (150-450); RED BLOOD CELL COUNT(AUTO) 4.68 MIL/uL (4.50-5.90); RED CELL DISTRIBUTION WIDTH 13.9 % (11.5-14.5)
[2023-03-18 07:42] LABS: HEMOGLOBIN A1C 4.6 % (3.8-5.6)
[2023-03-18 07:47] LABS: ALANINE AMINOTRANSFERASE 18 U/L (12-78); ALBUMIN 2.8 g/dL (3.4-5.0); ALKALINE PHOSPHATASE 48 U/L (46-116); ANION GAP 7 mmol/L (8-16); ASPARTATE AMINOTRANSFERASE 13 U/L (15-37); BILIRUBIN,TOTAL 0.8 mg/dL (0.1-1.0); CALCIUM, TOTAL 8.6 mg/dL (8.8-10.5); CARBON DIOXIDE 30 mmol/L (22-29); CHLORIDE 106 mmol/L (98-107); CHOL/HDL RATIO 2.7 (4.2-7.3); CHOLESTEROL 135 mg/dL (131-200); CREATININE 0.75 mg/dL (0.60-1.30); FREE T4 (FREE THYROXINE) 0.95 ng/dL (0.76-1.46); GLOMERULAR FILTR. RATE CALC > 60 mL/min (>60); GLUCOSE,RANDOM 88 mg/dL (70-110); HDL CHOLESTEROL 50 mg/dL (40-60); LDL CHOL (CALC.) 72 mg/dL (0-130); SODIUM SERUM 143 mmol/L (136-145); THYROID STIMULATING HORMONE 2.02 uIU/mL (0.36-3.74); TOTAL PROTEIN, SERUM 5.8 g/dL (6.4-8.2); TRIGLYCERIDES 67 mg/dL (15-150)
[2023-03-18 08:45] VITALS: BP 102/62
[2023-03-18 16:12] VITALS: BP 108/67
[2023-03-18] MEDS: LORazepam 2 MG TABLET PO PRN (16:15)
[2023-03-18] MEDS: QUEtiapine FUMARATE 200 MG TABLET PO SCH (20:15)
[2023-03-19 00:12] VITALS: BP 106/64
[2023-03-19 08:03] VITALS: BP 110/68
[2023-03-19 16:06] VITALS: BP 116/78
[2023-03-19] MEDS: QUEtiapine FUMARATE 200 MG TABLET PO SCH (20:21)
[2023-03-20 08:13] VITALS: BP 110/70
[2023-03-20 16:05] VITALS: BP 100/55
[2023-03-20 16:45] VITALS: BP 110/65
[2023-03-20] MEDS: LORazepam 2 MG TABLET PO PRN (17:38)
[2023-03-20] MEDS: HALOPERIDOL 5 MG TABLET PO PRN (17:38)
[2023-03-20] MEDS: QUEtiapine FUMARATE 200 MG TABLET PO SCH (20:34)
[2023-03-21 08:47] VITALS: BP 118/66
[2023-03-21 20:12] VITALS: BP 102/67
[2023-03-21] MEDS: QUEtiapine FUMARATE 200 MG TABLET PO SCH (21:30)
[2023-03-22 08:31] VITALS: BP 108/64
[2023-03-22] MEDS: LORazepam 2 MG TABLET PO PRN (17:13)
[2023-03-22 20:13] VITALS: BP 103/60
[2023-03-22] MEDS: QUEtiapine FUMARATE 200 MG TABLET PO SCH (20:36)
[2023-03-23 08:34] VITALS: BP 113/66
[2023-03-23] MEDS: LORazepam 2 MG TABLET PO PRN (19:35)
[2023-03-23 20:10] VITALS: BP 106/62
[2023-03-23] MEDS: QUEtiapine FUMARATE 200 MG TABLET PO SCH (21:08)
[2023-03-24 08:14] VITALS: BP 116/68
[2023-03-24] MEDS: HALOPERIDOL 5 MG TABLET PO PRN (16:53)
[2023-03-24] MEDS: LORazepam 2 MG TABLET PO PRN (16:53)
[2023-03-24] MEDS: NICOTINE 14 MG/24 HOUR PATCH TD SCH (19:01)
[2023-03-24 20:12] VITALS: BP 103/62
[2023-03-24] MEDS: QUEtiapine FUMARATE 200 MG TABLET PO SCH (20:20)
[2023-03-24] MEDS: ZOLPIDEM TARTRATE 10 MG TABLET PO PRN (20:23)
[2023-03-25] MEDS: NICOTINE 14 MG/24 HOUR PATCH TD SCH (08:31)
[2023-03-25 08:38] VITALS: BP 100/60
[2023-03-25] MEDS: LORazepam 2 MG TABLET PO PRN (15:42)
[2023-03-25] MEDS: HALOPERIDOL 5 MG TABLET PO PRN (15:44)
[2023-03-25 20:26] VITALS: BP 129/80
[2023-03-25] MEDS: QUEtiapine FUMARATE 200 MG TABLET PO SCH (20:29)
[2023-03-25] MEDS: ZOLPIDEM TARTRATE 10 MG TABLET PO PRN (20:53)
[2023-03-26] MEDS: NICOTINE 14 MG/24 HOUR PATCH TD SCH (08:17)
[2023-03-26 08:18] VITALS: BP 109/69
[2023-03-26] MEDS: LORazepam 2 MG TABLET PO PRN (14:28)
[2023-03-26 20:29] VITALS: BP 99/67
[2023-03-26] MEDS: QUEtiapine FUMARATE 200 MG TABLET PO SCH (20:29)
[2023-03-26 20:47] VITALS: BP 102/62
[2023-03-26] MEDS: ZOLPIDEM TARTRATE 10 MG TABLET PO PRN (21:03)
[2023-03-27] MEDS: NICOTINE 14 MG/24 HOUR PATCH TD SCH (08:37)
[2023-03-27 08:45] VITALS: BP 102/68
[2023-03-27] MEDS: HALOPERIDOL 5 MG TABLET PO PRN ×2 (09:33→18:27)
[2023-03-27] MEDS: LORazepam 2 MG TABLET PO PRN (16:25)
[2023-03-27 16:26] VITALS: BP 127/78
[2023-03-27] MEDS: QUEtiapine FUMARATE 200 MG TABLET PO SCH (20:27)
[2023-03-27 20:35] VITALS: BP 97/63
[2023-03-27] MEDS: ZOLPIDEM TARTRATE 10 MG TABLET PO PRN (21:29)
[2023-03-28 08:04] VITALS: BP 100/68
[2023-03-28] MEDS: NICOTINE 14 MG/24 HOUR PATCH TD SCH (09:37)
[2023-03-28] MEDS: LORazepam 2 MG TABLET PO PRN (16:04)
[2023-03-28 20:07] VITALS: BP 105/69
[2023-03-28] MEDS: QUEtiapine FUMARATE 200 MG TABLET PO SCH (20:31)
[2023-03-28] MEDS: ZOLPIDEM TARTRATE 10 MG TABLET PO PRN (21:05)
[2023-03-29] MEDS: NICOTINE 14 MG/24 HOUR PATCH TD SCH (08:26)
[2023-03-29 08:40] VITALS: BP 116/69
[2023-03-29] MEDS: LORazepam 2 MG TABLET PO PRN (12:09)
[2023-03-29] MEDS ORDERED: QUET200T PO (12:51)
== END 2023-03-29 16:02 | disposition home or self-care (01) | DRG 885 ==
LOC: B2X 19:52
PROVIDERS: ADMIT Psychiatry & Neurology Psychiatry; ATTEND Psychiatry & Neurology Psychiatry
DX: F25.9 Schizoaffective disorder, unspecified (principal); R45.851 Suicidal ideations; F41.9 Anxiety disorder, unspecified; G47.00 Insomnia, unspecified; F17.200 Nicotine dependence, unspecified, uncomplicated; F32.A Depression, unspecified; K59.00 Constipation, unspecified; Z88.0 Allergy status to penicillin; Z91.09 Other allergy status, other than to drugs and biological substances; Z79.899 Other long term (current) drug therapy
CPT/HCPCS: 80053; 80061; 83036; 84439; 84443; 85025; 87081

== ENCOUNTER 2024-01-16 21:42 | Inpatient (IN) | payer MEDICARE, MEDICAID ==
[~2024-01-16] VITALS: Ht 180.3 cm; Wt 100.7 kg
[~2024-01-16 21:42] MED LIST changes: +FLUO20CA36 PO; +MELA5TAB40 PO; +NALT50TA PO; -OLAN10 PO; +OLAN10TA26 PO; +OMEG-135 PO; -SERT-158 PO; -SERT-439 PO
[2024-01-16] MEDS ORDERED: HALOPERIDOL 5 MG TABLET PO PRN (22:00)
[2024-01-17 01:00] VITALS: BP 114/74; PULSE 67; RESP 18; TEMP 97.6; O2SAT 98
[2024-01-17] MEDS: ZOLPIDEM TARTRATE 10 MG TABLET PO PRN (01:16)
[2024-01-17] MEDS ORDERED: MAG HYDROX/ALUMINUM HYD/SIMETH ES 30 ML SUSPENSION UDCUP PO PRN (09:15)
[2024-01-17] MEDS ORDERED: HydrOXYzine PAMOATE 50 MG CAPSULE PO PRN (09:15)
[2024-01-17] MEDS ORDERED: GuaiFENesin/D-METHORPHAN [SUGAR-FREE] 200-20MG/10 ML SYRUP UDCUP PO PRN (09:15)
[2024-01-17] MEDS ORDERED: PROMETHAZINE HCL 25 MG TABLET PO PRN (09:15)
[2024-01-17] MEDS ORDERED: LOPERAMIDE HCL 2 MG CAPSULE PO PRN (09:15)
[2024-01-17] MEDS ORDERED: MAGNESIUM HYDROXIDE SUSPENSION 30 ML UDCUP PO PRN (09:15)
[2024-01-17] MEDS: PALIPERIDONE PALMITATE 234 MG/1.5 ML SYRINGE IM ONE (10:45)
[2024-01-17 11:28] VITALS: BP 114/66; PULSE 72; RESP 16; TEMP 97.8; O2SAT 99
[2024-01-17] MEDS: THIAMINE 100 MG TABLET PO SCH (16:37)
[2024-01-17] MEDS: LORazepam 2 MG TABLET PO PRN (16:37)
[2024-01-17] MEDS: OLANZapine 5 MG RAPDIS TABLET PO SCH (21:00)
[2024-01-17] MEDS: MELATONIN 5 MG TABLET PO SCH (21:00)
[2024-01-17 21:08] VITALS: BP 100/65; PULSE 79; RESP 14; TEMP 97.6; O2SAT 96
[2024-01-18 08:42] LABS: HEMOGLOBIN A1C 5.1 % (3.8-5.6)
[2024-01-18 08:45] LABS: CHOL/HDL RATIO 3.7 (4.2-7.3); FREE T4 (FREE THYROXINE) 0.98 ng/dL (0.76-1.46); THYROID STIMULATING HORMONE 1.81 uIU/mL (0.36-3.74)
[2024-01-18] MEDS: MULTIVITAMINS WITH MINERALS, THERAPEUTIC TABLET PO SCH (08:50)
[2024-01-18] MEDS: FOLIC ACID 1 MG TABLET PO SCH (08:50)
[2024-01-18] MEDS: FLUoxetine HCL 20 MG CAPSULE PO SCH (08:50)
[2024-01-18] MEDS: OMEGA-3/DHA/EPA/FISH OIL 1,000 MG CAPSULE PO SCH (08:51)
[2024-01-18] MEDS: NALTREXONE HCL 50 MG TABLET PO SCH (08:51)
[2024-01-18 09:59] VITALS: BP 121/67; PULSE 96; RESP 20; TEMP 98.3; O2SAT 97
[2024-01-18] MEDS: PALIPERIDONE PALMITATE 234 MG/1.5 ML SYRINGE IM ONE (17:38)
[2024-01-18] MEDS: OLANZapine 5 MG RAPDIS TABLET PO SCH (20:33)
[2024-01-19] VITALS: BP 102/61; PULSE 98; RESP 18; TEMP 97.8
[2024-01-19 08:59] VITALS: BP 101/56; PULSE 67; RESP 16; TEMP 98.1; O2SAT 95
[2024-01-19 22:11] VITALS: BP 102/55; PULSE 70; RESP 17; TEMP 97.1; O2SAT 96
[2024-01-20] MEDS: FLUoxetine HCL 20 MG CAPSULE PO SCH (08:18)
[2024-01-20 08:46] LABS: BASOPHILS % (AUTO) 0.4 % (0.0-2.0); EOSINOPHILS % (AUTO) 2.7 % (1.0-6.0); HEMOGLOBIN 14.3 g/dL (13.5-17.5); LYMPHOCYTES # (AUTO) 2.5 K/uL (1.0-4.8); MEAN CORPUSCULAR HEMOGLOBIN 28.1 pg (26.0-34.0); MEAN CORPUSCULAR HGB CONC 34.9 G/dL (31.0-37.0); MEAN CORPUSCULAR VOLUME 81 fL (80-100); MONOCYTES # (AUTO) 0.6 K/uL (0.1-1.0); MONOCYTES % (AUTO) 7.3 % (2.0-9.0); NEUTROPHILS # (AUTO) 4.9 K/uL (1.8-7.7); NEUTROPHILS % (AUTO) 59.6 % (40.0-70.0); PLATELET COUNT (AUTO) 364 K/uL (150-450); RED CELL DISTRIBUTION WIDTH 13.8 % (11.5-14.5); WHITE BLOOD COUNT (AUTO) 8.2 K/uL (4.5-11.0)
[2024-01-20 08:49] LABS: RBC MORPHOLOGY COMMENT NORMAL RBC MORPH
[2024-01-20 08:59] LABS: HEMOGLOBIN A1C 5.1 % (3.8-5.6)
[2024-01-20] MEDS ORDERED: FLUoxetine HCL 20 MG CAPSULE PO SCH (09:00)
[2024-01-20 09:05] LABS: ALANINE AMINOTRANSFERASE 29 U/L (12-78); ALBUMIN 3.4 g/dL (3.4-5.0); ALKALINE PHOSPHATASE 60 U/L (46-116); ANION GAP 8 mmol/L (8-16); ASPARTATE AMINOTRANSFERASE 20 U/L (15-37); BILIRUBIN,TOTAL 1.4 mg/dL (0.1-1.0); CALCIUM, TOTAL 8.6 mg/dL (8.8-10.5); CARBON DIOXIDE 27 mmol/L (22-29); CHLORIDE 104 mmol/L (98-107); CHOL/HDL RATIO 3.6 (4.2-7.3); CHOLESTEROL 164 mg/dL (131-200); CREATININE 0.66 mg/dL (0.60-1.30); GLOMERULAR FILTR. RATE CALC > 60 mL/min (>60); GLUCOSE,RANDOM 90 mg/dL (70-110); HDL CHOLESTEROL 46 mg/dL (40-60); LDL CHOL (CALC.) 103 mg/dL (0-130); POTASSIUM 3.9 mmol/L (3.5-5.1); SODIUM SERUM 139 mmol/L (136-145); THYROID STIMULATING HORMONE 3.25 uIU/mL (0.36-3.74); TOTAL PROTEIN, SERUM 6.7 g/dL (6.4-8.2); TRIGLYCERIDES 76 mg/dL (15-150); UREA NITROGEN, BLOOD 15 mg/dL (7-18)
[2024-01-20] MEDS: INFLUENZA VIRUS VACCINE QVS 2023-24 (6MO+)/PF 60 MCG/0.5 ML SYRINGE IM. ONE (13:39)
[2024-01-20 15:32] VITALS: BP 112/50; PULSE 80; RESP 18; TEMP 97.2; O2SAT 98
[2024-01-20] MEDS ORDERED: BISMUTH SUBSALICYLATE 262 MG CHEWABLE TABLET CHEW PRN (20:15)
[2024-01-20 20:27] VITALS: BP 104/60; PULSE 74; RESP 18; TEMP 97.9; O2SAT 97
[2024-01-20] MEDS: OLANZapine 10 MG RAPDIS TABLET PO SCH (20:53)
[2024-01-21 06:06] LABS: HEPATITIS A ANTIBODY IGM Negative (Negative); HEPATITIS B CORE IGM Negative (Negative); HEPATITIS C AB (EIA) Non Reactive (Non Reactive)
[2024-01-21 10:06] VITALS: RESP 16
[2024-01-22 00:10] VITALS: BP 106/60; PULSE 86; RESP 18; TEMP 98.2; O2SAT 96
[2024-01-22 08:32] VITALS: BP 109/64; PULSE 70; RESP 17; TEMP 97.5; O2SAT 96
[2024-01-22] MEDS: PALIPERIDONE PALMITATE 156 MG/ML SYRINGE IM ONE (08:56)
[2024-01-22 17:22] VITALS: RESP 17
[2024-01-22] MEDS: ACETAMINOPHEN 325 MG TABLET PO PRN (17:22)
[2024-01-22 18:22] VITALS: RESP 16
[2024-01-22 20:12] VITALS: BP 94/60; PULSE 81; RESP 18; TEMP 97.5; O2SAT 98
[2024-01-23 19:45] VITALS: RESP 18
[2024-01-23 20:39] VITALS: RESP 18; TEMP 98
[2024-01-23 21:20] VITALS: BP 93/53; PULSE 75; RESP 18; TEMP 99; O2SAT 94
[2024-01-23 21:46] VITALS: BP 108/57; PULSE 85; RESP 18; TEMP 98; O2SAT 98
[2024-01-24 04:20] LABS: GLUCOMETER DEV NAME(LOC) POC.BV; POC SARS-COV2 AG, FIA NEGATIVE (NEGATIVE)
[2024-01-24 08:35] VITALS: BP 108/60; PULSE 78; RESP 17; TEMP 97.7; O2SAT 97
[2024-01-24] MEDS: FLUoxetine HCL 20 MG CAPSULE PO SCH (09:56)
[2024-01-24 20:30] VITALS: BP 99/58; PULSE 72; RESP 18; TEMP 98.9; O2SAT 97
[2024-01-25 08:23] VITALS: BP 110/59; PULSE 66; RESP 18; TEMP 97.7; O2SAT 97
[2024-01-25 08:34] LABS: BASOPHILS % (AUTO) 0.9 % (0.0-2.0); HEMOGLOBIN 13.4 g/dL (13.5-17.5); LYMPHOCYTES % (AUTO) 22.3 % (22.0-44.0); MEAN CORPUSCULAR HGB CONC 35.3 G/dL (31.0-37.0); MEAN CORPUSCULAR VOLUME 79 fL (80-100); MONOCYTES # (AUTO) 0.5 K/uL (0.1-1.0); MONOCYTES % (AUTO) 12.4 % (2.0-9.0); NEUTROPHILS # (AUTO) 2.7 K/uL (1.8-7.7); NEUTROPHILS % (AUTO) 63.4 % (40.0-70.0); PLATELET COUNT (AUTO) 238 K/uL (150-450); RED BLOOD CELL COUNT(AUTO) 4.79 MIL/uL (4.50-5.90); RED CELL DISTRIBUTION WIDTH 13.7 % (11.5-14.5); WHITE BLOOD COUNT (AUTO) 4.3 K/uL (4.5-11.0)
[2024-01-25 08:50] LABS: ALANINE AMINOTRANSFERASE 47 U/L (12-78); ALBUMIN 2.9 g/dL (3.4-5.0); ALKALINE PHOSPHATASE 76 U/L (46-116); ANION GAP 4 mmol/L (8-16); ASPARTATE AMINOTRANSFERASE 40 U/L (15-37); BILIRUBIN,TOTAL 1.3 mg/dL (0.1-1.0); CALCIUM, TOTAL 8.2 mg/dL (8.8-10.5); CARBON DIOXIDE 31 mmol/L (22-29); CHLORIDE 98 mmol/L (98-107); CREATININE 0.74 mg/dL (0.60-1.30); GLOMERULAR FILTR. RATE CALC > 60 mL/min (>60); GLUCOSE,RANDOM 102 mg/dL (70-110); POTASSIUM 3.3 mmol/L (3.5-5.1); SODIUM SERUM 133 mmol/L (136-145); TOTAL PROTEIN, SERUM 6.5 g/dL (6.4-8.2); UREA NITROGEN, BLOOD 11 mg/dL (7-18)
[2024-01-25 15:28] VITALS: RESP 18
[2024-01-25 16:27] VITALS: RESP 18
[2024-01-25 20:59] VITALS: BP 100/65; PULSE 77; RESP 15; TEMP 97; O2SAT 95
[2024-01-25] MEDS: POTASSIUM CHLORIDE 20 MEQ ER TABLET PO ONE (22:40)
[2024-01-26 08:15] VITALS: BP 105/62; PULSE 69; RESP 19; TEMP 97.5; O2SAT 97
[2024-01-26] MEDS: FLUoxetine HCL 20 MG CAPSULE PO SCH (08:32)
[2024-01-26 21:07] VITALS: BP 107/63; PULSE 69; TEMP 97.8; O2SAT 95
[2024-01-27 08:40] VITALS: BP 104/58; PULSE 68; RESP 17; TEMP 98.2; O2SAT 96
[2024-01-27] MEDS: MODAFINIL 100 MG TABLET PO SCH (09:08)
[2024-01-27] MEDS: FLUoxetine HCL 20 MG CAPSULE PO SCH (09:08)
[2024-01-27 19:00] VITALS: BP 116/78; PULSE 87; RESP 18; TEMP 97.6; O2SAT 98
[2024-01-27] MEDS: NICOTINE 21 MG/24 HOUR PATCH TD SCH (19:29)
[2024-01-27 20:03] VITALS: BP 116/78; PULSE 87; RESP 18; TEMP 97.6; O2SAT 98
[2024-01-27 22:59] VITALS: BP 112/61; PULSE 98; RESP 18; TEMP 97.8; O2SAT 97
[2024-01-28 08:58] VITALS: BP 120/70; PULSE 70; RESP 18; TEMP 98.5; O2SAT 100
[2024-01-28] MEDS: HALOPERIDOL 5 MG TABLET PO PRN (13:55)
[2024-01-28 20:27] VITALS: BP 102/58; PULSE 82; RESP 18; TEMP 98.3; O2SAT 97
[2024-01-29 08:58] VITALS: BP 110/67; PULSE 83; RESP 16; TEMP 97.2; O2SAT 97
[2024-01-29 20:18] VITALS: BP 101/59; PULSE 73; RESP 18; TEMP 98.8; O2SAT 96
[2024-01-29] MEDS: OLANZapine 10 MG RAPDIS TABLET PO SCH (20:31)
[2024-01-30 08:20] VITALS: PULSE 70; RESP 17; TEMP 98.8; O2SAT 99
[2024-01-30 12:34] VITALS: BP 100/68; RESP 17; O2SAT 99
[2024-01-30 20:20] VITALS: BP 99/70; PULSE 86; RESP 17; TEMP 99; O2SAT 99
[2024-01-30 21:03] VITALS: BP 104/60; PULSE 75; RESP 18
[2024-01-31 08:00] VITALS: BP 106/64; PULSE 110; RESP 18; TEMP 98.4; O2SAT 96
[2024-01-31] MEDS: DULoxetine HCL 20 MG CAPSULE PO SCH (08:18)
[2024-01-31] MEDS: MODAFINIL 100 MG TABLET PO SCH (08:18)
[2024-01-31 20:28] VITALS: BP 104/63; PULSE 63; RESP 18; TEMP 97.5; O2SAT 96
[2024-02-01 08:32] VITALS: BP 100/64; PULSE 69; RESP 16; TEMP 98.4; O2SAT 97
[2024-02-01] MEDS: MODAFINIL 100 MG TABLET PO SCH (09:26)
[2024-02-01 21:29] VITALS: BP 97/60; PULSE 64; RESP 18; TEMP 98.1
[2024-02-02] MEDS: DULoxetine HCL 30 MG CAPSULE PO SCH (08:31)
[2024-02-02 13:17] VITALS: BP 120/70; PULSE 70; RESP 16; TEMP 97.6; O2SAT 99
[2024-02-02 22:31] VITALS: BP 110/66; PULSE 97; RESP 18; TEMP 97.6; O2SAT 97
[2024-02-03] MEDS: DULoxetine HCL 60 MG CAPSULE PO SCH (08:34)
[2024-02-03 08:35] VITALS: BP 109/66; PULSE 70; RESP 17; TEMP 97.7; O2SAT 97
[2024-02-03] MEDS ORDERED: DULoxetine HCL 20 MG CAPSULE PO SCH (09:00)
[2024-02-03 20:04] VITALS: BP 105/65; PULSE 81; RESP 16; TEMP 98.1; O2SAT 96
[2024-02-04 09:45] VITALS: BP 110/60; PULSE 90; RESP 16; TEMP 98; O2SAT 98
[2024-02-04] MEDS: DULoxetine HCL 20 MG CAPSULE PO SCH (09:47)
[2024-02-04 20:06] VITALS: BP 106/66; PULSE 82; RESP 16; TEMP 97.8; O2SAT 98
[2024-02-05 09:04] VITALS: BP 100/65; PULSE 74; RESP 16; TEMP 97.9; O2SAT 98
[2024-02-05 17:21] VITALS: BP 102/60; PULSE 62; RESP 17; TEMP 97.5; O2SAT 97
[2024-02-05 20:53] VITALS: BP 115/72; PULSE 68; RESP 18; TEMP 98.2; O2SAT 98
[2024-02-06 11:54] VITALS: BP 100/65; PULSE 64; RESP 18; TEMP 99.1; O2SAT 94
[2024-02-06 20:15] VITALS: BP 101/50; PULSE 72; RESP 16; TEMP 97.7; O2SAT 97
[2024-02-07] MEDS: DULoxetine HCL 20 MG CAPSULE PO SCH (08:20)
[2024-02-07 08:38] VITALS: BP 95/55; PULSE 65; RESP 17; TEMP 97.9; O2SAT 95
[2024-02-07] MEDS ORDERED: DULO20CA71 PO (08:58)
[2024-02-07] MEDS ORDERED: MODA100T65 PO (08:58)
[2024-02-07] MEDS ORDERED: NALT50TA33 PO (08:58)
== END 2024-02-07 12:51 | disposition home or self-care (01) | DRG 885 ==
LOC: UNDOADMIN 01-17 00:24 → B2X 01-17 00:24
PROVIDERS: ADMIT Psychiatry & Neurology Psychiatry; ATTEND Psychiatry & Neurology Psychiatry
PROC: GZHZZZZ Group Psychotherapy (ICD-10-PCS; principal; 2024-01-17)
PROC: GZ51ZZZ Individual Psychotherapy, Behavioral (ICD-10-PCS; 2024-01-17)
PROC: GZ56ZZZ Individual Psychotherapy, Supportive (ICD-10-PCS; 2024-01-18)
DX: F25.9 Schizoaffective disorder, unspecified (principal); R45.851 Suicidal ideations; F31.9 Bipolar disorder, unspecified; F17.200 Nicotine dependence, unspecified, uncomplicated; Z91.148 Patient's other noncompliance with medication regimen for other reason; F15.90 Other stimulant use, unspecified, uncomplicated; G47.00 Insomnia, unspecified; Z20.822 Contact with and (suspected) exposure to COVID-19; J44.9 Chronic obstructive pulmonary disease, unspecified; D64.9 Anemia, unspecified; I95.9 Hypotension, unspecified; D72.819 Decreased white blood cell count, unspecified; E87.6 Hypokalemia; Z88.0 Allergy status to penicillin; Z79.899 Other long term (current) drug therapy; Z91.199 Patient's noncompliance with other medical treatment and regimen due to unspecified reason
CPT/HCPCS: 80053; 80061; 80074; 83036; 84132; 84439; 84443; 85025; 86592; Q9967

== ENCOUNTER 2024-03-26 18:29 | Inpatient (IN) | payer MEDICARE, MEDICAID ==
[~2024-03-26] VITALS: Ht 175.3 cm; Wt 103.0 kg
[~2024-03-26 18:29] MED LIST changes: +DULO20CA71 PO; -FLUO20CA36 PO; +MODA100T65 PO; -NALT50TA PO; +NALT50TA33 PO; +NALT50TA6 PO
[2024-03-26 19:17] LABS: BASOPHILS % (AUTO) 0.4 % (0.0-2.0); EOSINOPHILS % (AUTO) 1.1 % (1.0-6.0); HEMATOCRIT 44.1 % (41-53); HEMOGLOBIN 15.2 g/dL (13.5-17.5); LYMPHOCYTES % (AUTO) 23.2 % (22.0-44.0); MEAN CORPUSCULAR HEMOGLOBIN 27.4 pg (26.0-34.0); MEAN CORPUSCULAR HGB CONC 34.4 G/dL (31.0-37.0); MEAN CORPUSCULAR VOLUME 80 fL (80-100); MONOCYTES # (AUTO) 0.5 K/uL (0.1-1.0); MONOCYTES % (AUTO) 6.2 % (2.0-9.0); NEUTROPHILS % (AUTO) 69.1 % (40.0-70.0); PLATELET COUNT (AUTO) 345 K/uL (150-450); RED BLOOD CELL COUNT(AUTO) 5.54 MIL/uL (4.50-5.90); RED CELL DISTRIBUTION WIDTH 14.5 % (11.5-14.5); WHITE BLOOD COUNT (AUTO) 8.6 K/uL (4.5-11.0)
[2024-03-26 19:25] LABS: ANION GAP 12 mmol/L (8-16); CALCIUM, TOTAL 9.5 mg/dL (8.8-10.5); CARBON DIOXIDE 26 mmol/L (22-29); CHLORIDE 99 mmol/L (98-107); CREATININE 0.78 mg/dL (0.60-1.30); GLOMERULAR FILTR. RATE CALC > 60 mL/min (>60); GLUCOSE,RANDOM 90 mg/dL (70-110); POTASSIUM 3.5 mmol/L (3.5-5.1); SODIUM SERUM 137 mmol/L (136-145); UREA NITROGEN, BLOOD 11 mg/dL (7-18)
[2024-03-26 19:34] LABS: ALCOHOL, BLOOD (SERUM) < 3 mg/dL (0-10)
[2024-03-26 20:36] LABS: COVID AG,FIA SOURCE NASAL SWAB
[2024-03-26] MEDS ORDERED: MAG HYDROX/ALUMINUM HYD/SIMETH ES 30 ML SUSPENSION UDCUP PO PRN (20:45)
[2024-03-26] MEDS ORDERED: LOPERAMIDE HCL 2 MG CAPSULE PO PRN (20:45)
[2024-03-26] MEDS ORDERED: ACETAMINOPHEN 325 MG TABLET PO PRN (20:45)
[2024-03-26] MEDS ORDERED: GuaiFENesin/D-METHORPHAN [SUGAR-FREE] 200-20MG/10 ML SYRUP UDCUP PO PRN (20:45)
[2024-03-26] MEDS ORDERED: MAGNESIUM HYDROXIDE SUSPENSION 30 ML UDCUP PO PRN (20:45)
[2024-03-26] MEDS ORDERED: HydrOXYzine PAMOATE 50 MG CAPSULE PO PRN (20:45)
[2024-03-26] MEDS ORDERED: PROMETHAZINE HCL 25 MG TABLET PO PRN (20:45)
[2024-03-26 21:00] LABS: SARS-COV2 (COVID) ANTIGEN,FIA Negative (Negative)
[2024-03-26] MEDS: THIAMINE 100 MG TABLET PO SCH (22:09)
[2024-03-26] MEDS: PALIPERIDONE PALMITATE 234 MG/1.5 ML SYRINGE IM ONE (22:09)
[2024-03-26] MEDS: OLANZapine 5 MG RAPDIS TABLET PO SCH (22:10)
[2024-03-26] MEDS: DIVALPROEX SODIUM 500 MG ER TABLET PO SCH (22:10)
[2024-03-26] MEDS: MELATONIN 5 MG TABLET PO SCH (22:10)
[2024-03-26 22:20] LABS: PH,URINE DRUG SCREEN 5.5 (5.0-8.0)
[2024-03-26 22:27] LABS: ALCOHOL, URINE DRUG SCREEN NEGATIVE (NEGATIVE); AMPHET/METH SCREEN,URINE POSITIVE (NEGATIVE); BARBITURATE SCREEN, URINE NEGATIVE (NEGATIVE); BENZODIAZEPINES SCREEN,URINE NEGATIVE (NEGATIVE); CANNABINOID SCREEN,URINE POSITIVE (NEGATIVE); COCAINE SCREEN,URINE NEGATIVE (NEGATIVE); METHADONE SCREEN, URINE NEGATIVE (NEGATIVE); OPIATE SCREEN,URINE NEGATIVE (NEGATIVE); PHENCYCLIDINE SCREEN,URINE NEGATIVE (NEGATIVE)
[2024-03-26 23:37] VITALS: BP 135/75; PULSE 80; RESP 20; TEMP 98.7; O2SAT 100
[2024-03-27 07:08] LABS: HEMOGLOBIN A1C 4.9 % (3.8-5.6)
[2024-03-27 07:27] LABS: CHOL/HDL RATIO 2.8 (4.2-7.3)
[2024-03-27 09:40] VITALS: BP 109/68; PULSE 75; RESP 17; TEMP 97.7; O2SAT 98
[2024-03-27] MEDS: OMEGA-3/DHA/EPA/FISH OIL 1,000 MG CAPSULE PO SCH (11:52)
[2024-03-27] MEDS: BuPROPion HCL XL 150 MG ER TABLET PO SCH (11:53)
[2024-03-27] MEDS: NALTREXONE HCL 50 MG TABLET PO SCH (11:53)
[2024-03-27] MEDS: FOLIC ACID 1 MG TABLET PO SCH (11:53)
[2024-03-27] MEDS: MULTIVITAMINS WITH MINERALS, THERAPEUTIC TABLET PO SCH (11:53)
[2024-03-28 08:40] VITALS: BP 103/57; PULSE 68; RESP 18; TEMP 97.7; O2SAT 97
[2024-03-28 20:42] VITALS: BP 109/69; PULSE 86; RESP 18; TEMP 98.2; O2SAT 98
[2024-03-28] MEDS: OLANZapine 10 MG RAPDIS TABLET PO SCH (20:43)
[2024-03-29 14:37] VITALS: BP 115/79; PULSE 90; RESP 19; TEMP 97.7; O2SAT 95
[2024-03-29 20:50] VITALS: BP 103/57; PULSE 82; RESP 18; TEMP 98.4; O2SAT 97
[2024-03-29] MEDS: ZOLPIDEM TARTRATE 10 MG TABLET PO PRN (22:09)
[2024-03-30] MEDS: BuPROPion HCL XL 150 MG ER TABLET PO SCH (08:27)
[2024-03-30] MEDS: PALIPERIDONE PALMITATE 156 MG/ML SYRINGE IM ONE (10:35)
[2024-03-30 10:57] VITALS: RESP 18
[2024-03-30] MEDS: LORazepam 2 MG TABLET PO PRN (17:06)
[2024-03-30] MEDS: OLANZapine 5 MG RAPDIS TABLET PO PRN (17:06)
[2024-03-30 17:13] VITALS: BP 125/72; PULSE 75; RESP 18; TEMP 98.5; O2SAT 97
[2024-03-30] MEDS: OLANZapine 5 MG RAPDIS TABLET PO SCH (20:46)
[2024-03-30 20:58] VITALS: BP 93/50; PULSE 83; RESP 18; TEMP 98.6; O2SAT 95
[2024-03-31 10:40] VITALS: BP 109/63; PULSE 60; RESP 18; TEMP 97.7; O2SAT 96
[2024-03-31 20:57] VITALS: RESP 18
[2024-04-01 10:34] VITALS: BP 111/53; PULSE 66; RESP 18; TEMP 97.5; O2SAT 98
[2024-04-01 21:56] VITALS: BP 135/73; PULSE 78; RESP 18; TEMP 98.4; O2SAT 96
[2024-04-02 12:58] VITALS: BP 94/61; PULSE 68; RESP 17; TEMP 97.7; O2SAT 96
[2024-04-02] MEDS: PARoxetine HCL 20 MG TABLET PO SCH (21:21)
[2024-04-02] MEDS: OLANZapine 10 MG RAPDIS TABLET PO SCH (21:21)
[2024-04-02 21:42] VITALS: BP 105/70; PULSE 75; RESP 18; TEMP 97.8; O2SAT 95
[2024-04-03 10:02] VITALS: BP 94/63; PULSE 76; RESP 16; TEMP 97.7; O2SAT 98
[2024-04-03] MEDS: PARoxetine HCL 10 MG TABLET PO SCH (21:46)
[2024-04-03 22:11] VITALS: BP 88/53; PULSE 61; RESP 18; TEMP 97; O2SAT 96
[2024-04-04] MEDS: MODAFINIL 100 MG TABLET PO SCH (09:08)
[2024-04-04 10:52] VITALS: BP 110/58; PULSE 63; RESP 18; TEMP 98.2; O2SAT 98
[2024-04-04] MEDS: PARoxetine HCL 20 MG TABLET PO SCH (20:57)
[2024-04-04 21:11] VITALS: BP 139/83; PULSE 88; RESP 18; TEMP 98.1; O2SAT 98
[2024-04-05] MEDS: MODAFINIL 100 MG TABLET PO SCH (08:44)
[2024-04-05 11:50] VITALS: BP 117/74; PULSE 58; RESP 18; TEMP 97; O2SAT 97
[2024-04-05 21:53] VITALS: BP 101/60; PULSE 97; RESP 18; TEMP 98.6; O2SAT 96
[2024-04-06 09:07] VITALS: BP 95/60; PULSE 62; RESP 19; TEMP 97.5; O2SAT 96
[2024-04-06 22:18] VITALS: BP 98/67; PULSE 66; RESP 18; TEMP 97
[2024-04-07 08:49] VITALS: BP 102/68; PULSE 61; RESP 18; TEMP 98
[2024-04-07] MEDS ORDERED: MODAFINIL 100 MG TABLET PO SCH (09:00)
[2024-04-07] MEDS: MODAFINIL 100 MG TABLET PO SCH (09:23)
[2024-04-07 21:49] VITALS: BP 111/59; PULSE 77; RESP 18; TEMP 97.7
[2024-04-08 09:56] VITALS: BP 98/58; PULSE 72; RESP 18; TEMP 97.8
[2024-04-08 21:05] VITALS: BP 114/70; PULSE 83; RESP 19; TEMP 97.9
[2024-04-09 18:02] VITALS: BP 93/54; PULSE 59; RESP 18; TEMP 98.3; O2SAT 97
[2024-04-09 20:57] VITALS: BP 94/61; PULSE 100; RESP 18; TEMP 98.3; O2SAT 95
[2024-04-09] MEDS: PARoxetine HCL 20 MG TABLET PO SCH (21:12)
[2024-04-10 08:41] VITALS: BP 107/65; RESP 17; TEMP 98.1; O2SAT 96
[2024-04-10] MEDS ORDERED: PARO-37 PO (15:17)
[2024-04-10] MEDS ORDERED: DIVA500T69 PO (15:17)
[2024-04-10] MEDS ORDERED: MODA100T65 PO (15:17)
[2024-04-10 17:07] VITALS: BP 119/73; PULSE 86
[2024-04-10 21:35] VITALS: RESP 18
[2024-04-11 11:57] VITALS: BP 95/66; PULSE 66; RESP 17; TEMP 98; O2SAT 98
== END 2024-04-11 15:20 | disposition home or self-care (01) | DRG 885 ==
LOC: EMS 18:29 → EDH 21:53 → 3EX 22:59
PROVIDERS: ADMIT Psychiatry & Neurology Psychiatry; ATTEND Psychiatry & Neurology Psychiatry
PROC: GZHZZZZ Group Psychotherapy (ICD-10-PCS; principal; 2024-03-27)
PROC: GZ51ZZZ Individual Psychotherapy, Behavioral (ICD-10-PCS; 2024-03-27)
PROC: GZ58ZZZ Individual Psychotherapy, Cognitive-Behavioral (ICD-10-PCS; 2024-03-27)
PROC: GZ56ZZZ Individual Psychotherapy, Supportive (ICD-10-PCS; 2024-03-28)
DX: F25.1 Schizoaffective disorder, depressive type (principal); R45.851 Suicidal ideations; Z59.00 Homelessness unspecified; D64.9 Anemia, unspecified; F17.210 Nicotine dependence, cigarettes, uncomplicated; F19.10 Other psychoactive substance abuse, uncomplicated; F42.9 Obsessive-compulsive disorder, unspecified; J44.9 Chronic obstructive pulmonary disease, unspecified; Z20.822 Contact with and (suspected) exposure to COVID-19; F41.9 Anxiety disorder, unspecified; Z88.0 Allergy status to penicillin; Z91.148 Patient's other noncompliance with medication regimen for other reason
CPT/HCPCS: 80048; 80061; 80164; 80307; 83036; 85025; 99285; G0378; G0480; Q9967

== ENCOUNTER 2024-11-09 03:15 | Emergency (ER) | payer MEDICARE, OTHER ==
[~2024-11-09] VITALS: Ht 177.8 cm; Wt 90.9 kg
[~2024-11-09 03:15] MED LIST changes: +DIVA500T69 PO; -DULO20CA71 PO; -MODA100T65 PO; -NALT50TA6 PO; +PARO-37 PO
[2024-11-09 03:24] VITALS: TEMP 98.6
[2024-11-09 05:03] LABS: BASOPHILS % (AUTO) 0.6 % (0.0-2.0); EOSINOPHILS % (AUTO) 4.5 % (1.0-6.0); HEMATOCRIT 37.1 % (41-53); HEMOGLOBIN 12.9 g/dL (13.5-17.5); LYMPHOCYTES # (AUTO) 2.5 K/uL (1.0-4.8); LYMPHOCYTES % (AUTO) 41.6 % (22.0-44.0); MEAN CORPUSCULAR HGB CONC 34.7 G/dL (31.0-37.0); MEAN CORPUSCULAR VOLUME 81 fL (80-100); MONOCYTES # (AUTO) 0.5 K/uL (0.1-1.0); MONOCYTES % (AUTO) 8.6 % (2.0-9.0); NEUTROPHILS # (AUTO) 2.7 K/uL (1.8-7.7); NEUTROPHILS % (AUTO) 44.7 % (40.0-70.0); PLATELET COUNT (AUTO) 343 K/uL (150-450); RED CELL DISTRIBUTION WIDTH 13.6 % (11.5-14.5)
[2024-11-09 05:13] LABS: ANION GAP 3 mmol/L (8-16); CALCIUM, TOTAL 8.3 mg/dL (8.8-10.5); CARBON DIOXIDE 32 mmol/L (22-29); CHLORIDE 103 mmol/L (98-107); CREATININE 0.77 mg/dL (0.60-1.30); GLOMERULAR FILTR. RATE CALC > 60 mL/min (>60); GLUCOSE,RANDOM 92 mg/dL (70-110); SODIUM SERUM 138 mmol/L (136-145); UREA NITROGEN, BLOOD 12 mg/dL (7-18)
[2024-11-09 05:40] LABS: ALCOHOL, BLOOD (SERUM) < 3 mg/dL (0-10)
[2024-11-09 06:00] VITALS: BP 129/77; PULSE 78; RESP 18; O2SAT 98
[2024-11-09 06:40] LABS: COVID AG,FIA SOURCE NASAL SWAB
[2024-11-09 07:34] LABS: SARS-COV2 (COVID) ANTIGEN,FIA Negative (Negative)
[2024-11-09 07:40] LABS: ALCOHOL, URINE DRUG SCREEN NEGATIVE (NEGATIVE); AMPHET/METH SCREEN,URINE POSITIVE (NEGATIVE); BARBITURATE SCREEN, URINE NEGATIVE (NEGATIVE); BENZODIAZEPINES SCREEN,URINE NEGATIVE (NEGATIVE); CANNABINOID SCREEN,URINE POSITIVE (NEGATIVE); COCAINE SCREEN,URINE NEGATIVE (NEGATIVE); METHADONE SCREEN, URINE NEGATIVE (NEGATIVE); OPIATE SCREEN,URINE NEGATIVE (NEGATIVE); PHENCYCLIDINE SCREEN,URINE NEGATIVE (NEGATIVE)
== END 2024-11-09 10:10 | disposition short-term general hospital (02) ==
LOC: EMS 03:16 → CANBEDREQ 12:14
DX: F25.1 Schizoaffective disorder, depressive type (principal); F15.10 Other stimulant abuse, uncomplicated; F42.9 Obsessive-compulsive disorder, unspecified; F12.90 Cannabis use, unspecified, uncomplicated; Z88.0 Allergy status to penicillin; Z20.822 Contact with and (suspected) exposure to COVID-19
CPT/HCPCS: 99285; 87426; 80048; 85025; 36415; 80307; G0480

== ENCOUNTER 2025-01-04 21:00 | Inpatient (IN) | payer MEDICARE, MEDICAID ==
[~2025-01-04] VITALS: Ht 180.3 cm; Wt 87.2 kg
[~2025-01-04 21:00] MED LIST changes: -DIVA500T69 PO; -MELA5TAB40 PO; -NALT50TA33 PO; -OLAN10TA26 PO; +OLAN5TAB52 PO; -OMEG-135 PO
[2025-01-04 21:35] VITALS: BP 100/62; PULSE 69; RESP 18; TEMP 97.9; O2SAT 98
[2025-01-05 07:08] LABS: HEMOGLOBIN A1C 4.7 % (3.8-5.6)
[2025-01-05 07:15] LABS: CHOL/HDL RATIO 2.3 (4.2-7.3)
[2025-01-05 10:59] VITALS: BP 102/55; PULSE 62; RESP 18; TEMP 98; O2SAT 99
[2025-01-05] MEDS ORDERED: CloNIDine HCL 0.1 MG TABLET PO PRN (20:00)
[2025-01-05] MEDS ORDERED: PETROLATUM,WHITE 28 GM JELLY TP PRN (20:00)
[2025-01-05] MEDS ORDERED: BACITRACIN 28 GM OINTMENT TP PRN (20:00)
[2025-01-05] MEDS ORDERED: ONDANSETRON 4 MG TABLET PO PRN (20:00)
[2025-01-05] MEDS ORDERED: MAGNESIUM HYDROXIDE SUSPENSION 30 ML UDCUP PO PRN (20:00)
[2025-01-05] MEDS ORDERED: LOPERAMIDE HCL 2 MG CAPSULE PO PRN (20:00)
[2025-01-05] MEDS ORDERED: OMEPRAZOLE 20 MG CAPSULE PO PRN (20:00)
[2025-01-05] MEDS ORDERED: ACETAMINOPHEN 325 MG TABLET PO PRN (20:00)
[2025-01-05] MEDS ORDERED: BENZOCAINE/MENTHOL [CEPACOL] LOZENGE PO PRN (20:00)
[2025-01-05] MEDS ORDERED: DOCUSATE SODIUM 100 MG CAPSULE PO PRN (20:00)
[2025-01-05] MEDS ORDERED: ALBUTEROL SULFATE HFA 90 MCG/PUFF 8 GM INHALER IH PRN (20:00)
[2025-01-05] MEDS ORDERED: MAG HYDROX/ALUMINUM HYD/SIMETH ES 30 ML SUSPENSION UDCUP PO PRN (20:00)
[2025-01-05] MEDS: OLANZapine 10 MG TABLET PO SCH (21:36)
[2025-01-05] MEDS: PARoxetine HCL 20 MG TABLET PO SCH (21:36)
[2025-01-05 22:54] VITALS: BP 99/65; PULSE 64; RESP 18; TEMP 97.9; O2SAT 98
[2025-01-06] MEDS: NICOTINE 21 MG/24 HOUR PATCH TD SCH (09:04)
[2025-01-06 11:13] VITALS: RESP 18
[2025-01-06] MEDS: HALOPERIDOL 5 MG TABLET PO PRN (16:33)
[2025-01-06 23:18] VITALS: BP 98/65; PULSE 60; RESP 18; TEMP 97.8
[2025-01-07 09:00] VITALS: BP 98/58; PULSE 70; RESP 18; TEMP 97.6; O2SAT 97
[2025-01-07 22:07] VITALS: BP 103/49; PULSE 61; RESP 17; TEMP 97.7; O2SAT 100
[2025-01-08] MEDS: LORazepam 2 MG TABLET PO PRN (13:33)
[2025-01-08 13:40] VITALS: BP 96/47; PULSE 67; RESP 16; TEMP 97.7; O2SAT 96
[2025-01-08 21:00] VITALS: BP 96/55; PULSE 85; RESP 18; TEMP 97.8; O2SAT 96
[2025-01-09 13:14] VITALS: BP 95/68; PULSE 61; RESP 18; TEMP 97.5; O2SAT 97
[2025-01-09 15:35] LABS: BASOPHILS % (AUTO) 0.3 % (0.0-2.0); EOSINOPHILS % (AUTO) 0.6 % (1.0-6.0); HEMATOCRIT 40.6 % (41-53); HEMOGLOBIN 13.4 g/dL (13.5-17.5); LYMPHOCYTES # (AUTO) 1.1 K/uL (1.0-4.8); LYMPHOCYTES % (AUTO) 17.5 % (22.0-44.0); MEAN CORPUSCULAR HEMOGLOBIN 27.4 pg (26.0-34.0); MEAN CORPUSCULAR HGB CONC 33.1 G/dL (31.0-37.0); MEAN CORPUSCULAR VOLUME 83 fL (80-100); MONOCYTES # (AUTO) 0.4 K/uL (0.1-1.0); MONOCYTES % (AUTO) 7.3 % (2.0-9.0); NEUTROPHILS # (AUTO) 4.5 K/uL (1.8-7.7); NEUTROPHILS % (AUTO) 74.3 % (40.0-70.0); PLATELET COUNT (AUTO) 286 K/uL (150-450); RED CELL DISTRIBUTION WIDTH 14.9 % (11.5-14.5); WHITE BLOOD COUNT (AUTO) 6.1 K/uL (4.5-11.0)
[2025-01-09 15:48] LABS: ALANINE AMINOTRANSFERASE 24 U/L (12-78); ALBUMIN 3.3 g/dL (3.4-5.0); ALKALINE PHOSPHATASE 69 U/L (46-116); ANION GAP 6 mmol/L (8-16); ASPARTATE AMINOTRANSFERASE 22 U/L (15-37); BILIRUBIN,TOTAL 1.2 mg/dL (0.1-1.0); CALCIUM, TOTAL 8.8 mg/dL (8.8-10.5); CARBON DIOXIDE 29 mmol/L (22-29); CHLORIDE 101 mmol/L (98-107); CREATININE 0.61 mg/dL (0.60-1.30); GLOMERULAR FILTR. RATE CALC > 60 mL/min (>60); GLUCOSE,RANDOM 126 mg/dL (70-110); POTASSIUM 3.7 mmol/L (3.5-5.1); SODIUM SERUM 136 mmol/L (136-145); TOTAL PROTEIN, SERUM 6.4 g/dL (6.4-8.2); UREA NITROGEN, BLOOD 15 mg/dL (7-18)
[2025-01-09 21:13] VITALS: BP 105/71; PULSE 79; RESP 18; TEMP 97.6
[2025-01-10 16:34] VITALS: BP 120/66; PULSE 69; RESP 16; TEMP 98.6; O2SAT 98
[2025-01-10 20:23] VITALS: BP 109/60; PULSE 18; RESP 18; TEMP 98.5; O2SAT 99
[2025-01-10 22:50] VITALS: BP 110/70; PULSE 81; RESP 19; TEMP 98.1; O2SAT 98
[2025-01-10] MEDS: IBUPROFEN 600 MG TABLET PO PRN (22:54)
[2025-01-10 23:54] VITALS: RESP 18
[2025-01-11 08:59] VITALS: BP 110/64; PULSE 77; RESP 18; TEMP 98.2; O2SAT 98
[2025-01-11 16:25] VITALS: BP 105/78; PULSE 88; RESP 18
[2025-01-11 21:09] VITALS: BP 129/84; PULSE 65; RESP 18; TEMP 97.6
[2025-01-12 04:25] VITALS: BP 122/75; PULSE 63; RESP 18; TEMP 97.5
[2025-01-12 05:25] VITALS: RESP 18
[2025-01-12 09:22] VITALS: BP 119/76; PULSE 68; RESP 17; TEMP 97.6
[2025-01-12 21:30] VITALS: BP 118/64; PULSE 67; RESP 18; TEMP 97.4; O2SAT 98
[2025-01-13 03:39] VITALS: BP 125/72; PULSE 74; RESP 18; TEMP 98; O2SAT 97
[2025-01-13 04:42] VITALS: RESP 18
[2025-01-14 01:43] VITALS: BP 110/70; PULSE 70; RESP 18; TEMP 98.1; O2SAT 98
[2025-01-14 02:55] VITALS: BP 118/75; PULSE 80; RESP 19; TEMP 97.6; O2SAT 97
[2025-01-14 03:58] VITALS: RESP 18
[2025-01-14 16:00] VITALS: BP 120/70; PULSE 74; RESP 17; TEMP 97.5; O2SAT 97
[2025-01-14 20:28] VITALS: BP 102/66; PULSE 87; RESP 18; TEMP 97.6; O2SAT 99
[2025-01-14] MEDS: ZOLPIDEM TARTRATE 10 MG TABLET PO PRN (21:04)
[2025-01-15 11:20] VITALS: BP 125/76; PULSE 100; RESP 20; TEMP 98; O2SAT 96
[2025-01-15 20:42] VITALS: BP 96/60; PULSE 81; RESP 18; TEMP 97.9; O2SAT 98
[2025-01-15 20:56] VITALS: RESP 18
[2025-01-15 21:56] VITALS: RESP 18
[2025-01-16 09:49] VITALS: BP 109/66; PULSE 87; RESP 18; TEMP 98.4; O2SAT 100
[2025-01-16 19:13] VITALS: BP 123/78; PULSE 78; RESP 17; TEMP 97.6
[2025-01-16 20:30] VITALS: BP 95/60; PULSE 77; RESP 17; TEMP 98.4
[2025-01-17 08:27] VITALS: BP 90/50; PULSE 61; RESP 18; TEMP 96.8; O2SAT 96
[2025-01-17 11:34] VITALS: BP 116/65; PULSE 67; RESP 19; TEMP 98; O2SAT 98
[2025-01-17 20:56] VITALS: BP 147/65; PULSE 85; RESP 18; TEMP 97.7; O2SAT 99
[2025-01-18] MEDS ORDERED: OLAN10TA74 PO (11:39)
[2025-01-18] MEDS ORDERED: PARO-38 PO (11:54)
[2025-01-18 15:42] VITALS: PULSE 81; RESP 17; TEMP 98.2; O2SAT 96
[2025-01-18 20:26] VITALS: BP 90/55; PULSE 77; RESP 16; TEMP 97.8; O2SAT 97
[2025-01-19 13:55] VITALS: BP 90/50; PULSE 57; RESP 16; TEMP 97.5; O2SAT 96
[2025-01-19 23:00] VITALS: BP 103/68; PULSE 85; RESP 18; TEMP 97.6; O2SAT 99
[2025-01-20 08:00] VITALS: BP 106/64; PULSE 63; RESP 18; TEMP 97.9; O2SAT 98
[2025-01-20 21:03] VITALS: BP 93/53; PULSE 74; RESP 18; TEMP 97.9; O2SAT 95
[2025-01-21 10:30] VITALS: BP 113/67; PULSE 87; RESP 17; TEMP 97.8; O2SAT 98
[2025-01-21] MEDS ORDERED: NICOTINE 21 MG/24 HOUR PATCH TD PRN (11:30)
[2025-01-21 12:37] VITALS: BP 113/67; PULSE 87; RESP 17; TEMP 97.8; O2SAT 98
[2025-01-21 20:13] VITALS: BP 90/61; PULSE 87; RESP 18; TEMP 98.1; O2SAT 100
[2025-01-21] MEDS: OLANZapine 7.5 MG TABLET PO SCH (21:38)
[2025-01-22 09:38] VITALS: BP 104/56; PULSE 80; RESP 18; TEMP 98.2; O2SAT 99
[2025-01-22 20:16] VITALS: BP 90/50; PULSE 70; RESP 18; TEMP 98.4; O2SAT 100
[2025-01-23] MEDS ORDERED: OLAN7.5T22 PO (11:08)
[2025-01-23 11:50] VITALS: BP 108/62; PULSE 61; RESP 17; TEMP 98.2; O2SAT 95
== END 2025-01-23 12:50 | disposition home or self-care (01) | DRG 885 ==
LOC: 3EX 21:37
PROVIDERS: ADMIT Psychiatry & Neurology Psychiatry; ATTEND Psychiatry & Neurology Psychiatry
PROC: GZHZZZZ Group Psychotherapy (ICD-10-PCS; principal; 2025-01-06)
PROC: GZ52ZZZ Individual Psychotherapy, Cognitive (ICD-10-PCS; 2025-01-06)
DX: F20.0 Paranoid schizophrenia (principal); R45.851 Suicidal ideations; F41.9 Anxiety disorder, unspecified; G47.00 Insomnia, unspecified; K59.00 Constipation, unspecified; E55.9 Vitamin D deficiency, unspecified; F12.10 Cannabis abuse, uncomplicated; F32.A Depression, unspecified; F15.10 Other stimulant abuse, uncomplicated; Z72.0 Tobacco use
CPT/HCPCS: 80053; 80061; 83036; 85025; 87081; G0378